=== PATIENT | female | born 1955 | race Caucasian/White ===

== ENCOUNTER 2018-07-19 20:00 | Inpatient (IN) | payer OTHER ==
[~2018-07-19] VITALS: Ht 167.6 cm; Wt 90.7 kg
[~2018-07-19 20:00] MED LIST: ACEASPCAF; ACET325; ATEN100; Atenolol100 MG PO; BUPR100ER; BUPR150ER; BUPR150ER PO; BUPR150T2; BUPR75; BUPR75 PO; Bactrim Ds Tab1 EACH PO; CLIN150 PO; CLON.1 PO; CYCL10 PO; Cleocin HCl150 MG PO; Cleocin HCl300 MG PO; DIAZ10 PO; DOCU100 PO; DULO30; FLUV50; FURO40 PO; GABA100; GABA400; HYDACE10A PO; HYDACE10B PO; HYDACE5 PO; HYDACE5325 PO; HYDCHL25 PO; IBUP200; IBUP800 PO; LISI5 PO; META800; META800 PO; METH10; METH10 PO; METO100ER; NAPR500 PO; NAPR550 PO; OMEP10ER; OMEP20ER; OMEP40CA12 PO; OXYACE10 PO; OXYACE5T PO; OXYC20ER; OXYC30 PO; OXYC30ER; OXYC5 PO; PRED20 PO; PROACE100 PO; PROC10 PO; RXHYDACE PO; RXNAPNA550 PO; RXOXYACE PO; SULTRIDS PO; TOBR.3OPSO OP; TRAM50 PO; TRIAOI IH
[2018-07-19] MEDS ORDERED: CARV25 PO (20:19)
[2018-07-19] MEDS ORDERED: OMEPRAZOLE MAGN20 MG PO (20:20)
[2018-07-19 21:21] LABS: Hematocrit 31.7 % (33.0-51.0); Hemoglobin 10.5 g/dL (11.5-16.0); Mean Corpuscular Volume 79 fL (80-100)
[2018-07-19 21:22] LABS: BASOPHILS PERCENT AUTO 1 % (0-2); EOSINOPHILS ABSOLUTE AUTO 0.14 K/mm3 (0.00-0.68); EOSINOPHILS PERCENT AUTO 2 % (0-6); IMMATURE GRAN PERCENT AUTO 1 % (0-1); LYMPHOCYTES ABSOLUTE AUTO 1.91 K/mm3 (0.84-5.20); LYMPHOCYTES PERCENT AUTO 24 % (21-46); MONOCYTES ABSOLUTE AUTO 0.58 K/mm3 (0.16-1.47); MONOCYTES PERCENT AUTO 7 % (4-13); Mean Corpuscular HGB 26.3 pg (26.0-34.0); Mean Corpuscular HGB Conc 33.1 g/dL (31.5-36.5); Mean Platelet Volume 9.1 fL (9.1-12.4); NEUTROPHILS ABSOLUTE AUTO 5.38 K/mm3 (1.96-9.15); NEUTROPHILS PERCENT AUTO 66 % (41-73); Platelet Count 465 K/mm3 (150-400); RDW Coefficient Variation 13.6 % (11.7-14.2)
[2018-07-19 21:23] LABS: BASOPHILS ABSOLUTE AUTO 0.04 K/mm3 (0.00-0.23); IMMATURE GRAN ABSOLUTE AUTO 0.05 K/mm3 (0.00-0.10)
[2018-07-19 21:48] LABS: Anion Gap 7 mmol/L (6-16); Blood Urea Nitrogen 8 mg/dL (8-24); CO2, Blood 24 mmol/L (21-32); Chloride, Blood 104 mmol/L (98-108); Glucose, Blood 97 mg/dL (70-99); Potassium, Blood 4.2 mmol/L (3.5-5.5); Sodium, Blood 135 mmol/L (136-145)
[2018-07-19 21:49] LABS: Alanine Aminotransfer (ALT/SGP 17 U/L (12-78); Albumin, Blood 2.8 g/dL (3.4-5.0); Albumin/Globulin Ratio 0.6 (0.8-1.8); Alk Phos 174 U/L (50-136); Aspartate Aminotrans (AST/SGOT 17 U/L (12-37); Bilirubin, Total 0.2 mg/dL (0.1-1.0); Bun/Creatinine Ratio 15.1 (12.0-20.0); Calcium, Blood 8.2 mg/dL (8.5-10.1); Creatinine, Blood 0.53 mg/dL (0.40-1.00); Globulin, Blood 4.8 g/dL (2.2-4.0); Glomerular Filtration Rate >60 (60-); Total Protein, Blood 7.6 g/dL (6.4-8.2)
--- NOTE | 2018-07-19 23:44 | NUR ---
transfer report from [facility] LEONG in ER on PT being admitted with cellulitis of rt ue. Blood culture x 2 and rt ue abscess cultured in ER. PT is IV heroin abuser and homeless. Has multiple medication allergies, PT recieved antibiotic azatam and has Vanco infusing per RN report. Await admission
[2018-07-19 23:49] LABS: Prothrombin Time Results 10.6 Sec (9.7-11.5)
--- NOTE | 2018-07-20 02:16 | NUR ---
PT HAS VERY LIMITED IV ACCESS. HAS 22 G RT SHOULDER AND RURAL ROUTE MAIL CARRIER STOPPED IV VANCO DUE TO INFLAMMATION WITH ADMIN. CALLED PHARMACY AND EXPLAINED MAXIPIME AND HEPARIN INFUSION NEEDED TO WAIT UNTIL VANCO FINISHED INFUSING WITH NS AT 50 ML HR TO DILUTE. CALLED Pam and Socorro Rn about establishing new iv access site due to heparin gtt and multiple iv antibiotics. started heparin gtt and gave 5000 units heparin bolus as rx for rt ue dvt.
--- NOTE | 2018-07-20 07:53 | NUR ---
0700 CHANGE OF SHIFT. PT YELLING OUT, CURSING, LAYING IN BED ALONE IN ROOM. SPOKE WITH PT ATTEMPTING TO DESCALATE PT. LISTENED TO PT'S CONCERNS AFTER REQUESTING THE PT MAKE EYE CONTACT AND STOP RAISING VOICE. PT REPORTED CONCERN THAT SHE WAS ON BLOOD THINNER PRIOR TO SURGERY. EDUCATED PT THAT HEPERIN WAS BEING USED TO TREAT DVT AND THAT IT IS ABLE TO GET OUT OF HER SYSTEM QUICKLY. PT REPORTED CHRONIC BACK PAIN, PT REPOSITIONED, PT REPORTED RELIEF. PT REPORTED DIAPHORESIS SECONDARY TO HEROIN WITHDRAWL, PT REPORTS NO USE SINCE YESTERDAY MORNING. BEDSIDE FAN PROVIDED. PT DENIES SOB, N/V. DRESSING TO R FA C/D/I. 0720 PT RESTING QUIETLY IN BED WITH EYES CLOSED. 0745 PT BEGAN SAYING "OH GOD REPEADITLY." DR. FUENTES CALLED AND NOTIFIED OF PT'S CONCERN FOR HEROIN WITHDRAWL. DR. FUENTES REPORTED THAT HE WOULD BE IN TO SEE THE PT THIS AM FOR ASSESSMENT. 0800 PT ASSISTED TO BATHROOM WITH CGA AND FWW WITHOUT ISSUE.
--- NOTE | 2018-07-20 08:15 | NUR ---
SPOKE WITH DR. FRANZ VIA PHONE AND GAVE HIM INFORMATION R/T CONSULT.
--- NOTE | 2018-07-20 08:35 | NUR ---
63 year old White female admitted for rt arm wound that started with injecting heroin at site. She uses iv heroin daily x 6 years. she self injected 07/19/18 am then usually would inject again in PM but she said she needed to get help for rt ue. PT doppler US positive for RT ue DVT. Deep wound culture done in ER. PT has very poor iv access and has vanco heparin gtt and several other antibiotics rx. did get 2nd iv access site after using emla cream. PT is labile weepy at times and she yells at staff and calls them names. She co needing to have le elevated due to le cramps. Pt refused am lab draw, repeatedly refused. Attempted to draw lab for new IV site with only about 3 ml withdrawn. PT is NPO for possible I & D rt fa wound. She is agitated and yelling at staff at shift change. PT is homeless, threatens AMA multiple times. Ortho consult called to office npo return call yet. Medicated with 25 to 50 mcg fent with mild helpful effect.
[2018-07-20 10:28] LABS: Hematocrit 32.2 % (33.0-51.0); Hemoglobin 10.3 g/dL (11.5-16.0); Mean Corpuscular HGB 25.8 pg (26.0-34.0); Mean Corpuscular Volume 81 fL (80-100); Mean Platelet Volume 8.4 fL (9.1-12.4); Platelet Count 490 K/mm3 (150-400); RDW Coefficient Variation 13.8 % (11.7-14.2); RDW Standard Deviation 40.4 fL (35.1-46.3); Red Blood Cell Count 3.99 M/mm3 (3.80-5.20); White Blood Cell Count 7.05 K/mm3 (4.00-11.30)
[2018-07-20 10:55] LABS: Alanine Aminotransfer (ALT/SGP 14 U/L (12-78); Albumin, Blood 2.8 g/dL (3.4-5.0); Albumin/Globulin Ratio 0.6 (0.8-1.8); Alk Phos 165 U/L (50-136); Anion Gap 6 mmol/L (6-16); Aspartate Aminotrans (AST/SGOT 16 U/L (12-37); Bilirubin, Total 0.4 mg/dL (0.1-1.0); Blood Urea Nitrogen 5 mg/dL (8-24); Bun/Creatinine Ratio 9.7 (12.0-20.0); CO2, Blood 27 mmol/L (21-32); Calcium, Blood 8.4 mg/dL (8.5-10.1); Chloride, Blood 107 mmol/L (98-108); Creatinine, Blood 0.52 mg/dL (0.40-1.00); Globulin, Blood 4.5 g/dL (2.2-4.0); Glomerular Filtration Rate >60 (60-); Glucose, Blood 109 mg/dL (70-99); Potassium, Blood 3.6 mmol/L (3.5-5.5); Sodium, Blood 140 mmol/L (136-145); Total Protein, Blood 7.3 g/dL (6.4-8.2)
--- NOTE | 2018-07-20 11:45 | NUR ---
PT WAS NOT ABLE TO TOLERATE CT SCAN SECONDARY WITHDRWAL SYMPTOMS AND CHRONIC BACK PAIN. PT MEDICATED WITH IV ATIVAN AND FENTNYL PRIOR TO SCAN. PT IS CALM IN BED RESTING/SLEEPING WHEN NOT STIMULATED. DR. FRANZ NOTIFIED PT WAS NOT ABLE TOLERATE CT.
--- NOTE | 2018-07-20 16:00 | NUR ---
PT TRANSFERRED TO ROOM 349 FROM ROOM 333 VIA BED. ASLEEP AT TIME OF TRANSFER. REPORT RECEIVED FROM JEET LLANES RN. WILL CONTINUE TO MONITOR.
--- NOTE | 2018-07-20 16:56 | NUR ---
1546 PT TRANSFERED TO SCU RM 349. REPORT GIVEN TO Donato DYSON RN AT TIME OF TRANSFER. DR. PALACIOS IN THIS AFTERNOON AND PT WAS NOT ABLE TO COME TO A DECISION ON WHETHER TO PURSUE SURGICAL INTERVENTION OR NOT. RECIEVED VERBAL ORDER FROM DR. PALACIOS FOR REGULAR DIET AND WOUND CARE. PT WAS INTERMITTENTLY SLEEPING AND WHEN AWAKE BECOMING VERY AGITATED, YELLING, AND EXPRESSING THAT SHE WANTED TO LEAVE THE HOSPITAL SECONDARY TO HEROIN WITHDRAWL. DECISION TO TRANSFER TO SCU WAS BASED ON THE ABOVE BEHAVIORS.
--- NOTE | 2018-07-20 17:56 | NUR ---
PT SAYING SHE WANTS TO LEAVE AND IS CALLING FRIENDS LOOKING FOR A RIDE HOME. DR FUENTES INFORMED, HE DECLINED A 2 MD HOLD AT THIS TIME.
--- NOTE | 2018-07-20 18:25 | NUR ---
PT PULLED ANTONIO IV, REFUSED NEW IV PLACEMENT, REFUSING CARE. YELLING AND CALLING OUT, SAYS SHE IS LEAVING, NO MATTER WHAT
--- NOTE | 2018-07-20 18:50 | NUR ---
PT WITH INTERVALS OF SLEEP AND CUSSING AND YELLING OUT, SAYING SHE IS LEAVING, CALLING FAMILY TO COME AND GET HER. SHE HAS PULLED IV'S AND REFUSES TO HAVE A NEW ONE PLACED. PHARMACY AND DR FUENTES INFORMED. DR FUENTES DELINES A 2 MD HOLD. WILL CONTINUE TO MONITOR AND REPORT TO ONCOMING RN
--- NOTE | 2018-07-20 20:10 | NUR ---
Was not able to do nursing assessment. Pt totally uncooperative with cares. Pt beligerant and will not let you assess her. Pt screaming and cussing constantly. Very difficult to make happy.
--- NOTE | 2018-07-20 22:21 | NUR ---
SECURITY CALLED TO COME ASSIST IN RM 349. PT AGITATED AND OUT OF CONTROL. YELLING AND SCREAMING THAT SHE NEEDED TO LEAVE TO GO GET HER CAR THAT HER GRANDSON HAS. UNABLE TO REASON WITH PT. EXPLAINED TO PT THE RISKS AND BENEFITS OF LEAVING AMA. PT STS ALL SHE WANTS IS TO GET HER CAR AND SHE IS COMING BACK. EXPLAINED TO HER THAT WHEN SHE LEAVES AMA THAT SHE CAN'T COME BACK AND EXPECT HER ROOM. SHE STS SHE KNOWS THAT SHE WILL HAVE TO COME BACK TO THE ER. PT DID SIGN THE AMA PAPER. LEFT WRIST IV REMOVED AND PRESSURE DRESSING APPLIED. PT DISLODGED DRESSING WHILE THRASHING HER HANDS AROUND CAUSING SOME BLEEDING. REINFORCED PRESSURE DRESSING WHILE PT WAS FREAKING OUT OVER WANTING TO GET TO HER CAR. ASSISTED PT WITH HER CLOTHES AND CLEANING HER UP. CHANGED THE DAVON BANDAGE TO HER RIGHT FOREARM. PT WAS ESCORTED OFF THE FLOOR BY SECURITY WITH ALL HER PERSONAL BELONGINGS. WAS ESCORTED OUT BY SECURITY.
--- NOTE | 2018-07-20 23:19 | NUR ---
Pt very beligerant and screaming out and cursing constantly with little patience. Pt does not believe anything you tell her. Pt concerned about her car. Pt given ativan and fentanyl which only lasted about an hour before she was all over the place and screaming again. Pt totally uncooperative with cares. Pt wants to leave! Pt given ama paperwork and we were finally able to get her to sign it. IV was dced. Pt was dressed. Pt taken downstairs by security. Per security she was picked up by family. Pt left AMA around 2129.
== END 2018-07-20 22:22 | disposition left against medical advice (07) | DRG 301 ==
LOC: ER 20:00 → MEDS 22:45
PROVIDERS: Emergency Medicine; Physician Assistant; ADMIT Internal Medicine
DX: I82.621 Acute embolism and thrombosis of deep veins of right upper extremity (principal); I11.0 Hypertensive heart disease with heart failure; I50.9 Heart failure, unspecified; F32.9 Major depressive disorder, single episode, unspecified; I89.0 Lymphedema, not elsewhere classified; L98.492 Non-pressure chronic ulcer of skin of other sites with fat layer exposed; L08.9 Local infection of the skin and subcutaneous tissue, unspecified; F11.10 Opioid abuse, uncomplicated; F17.210 Nicotine dependence, cigarettes, uncomplicated
CPT/HCPCS: 36415; 73110; 80053; 85025; 85027; 85610; 85730; 93971; 96365; 96367; 99285-25; J0692; J1644; J2060; J3010; J3370; J7030; J7050

== ENCOUNTER 2018-07-25 20:56 | Inpatient (IN) | payer OTHER ==
[~2018-07-25] VITALS: Ht 167.6 cm; Wt 85.0 kg
[~2018-07-25 20:56] MED LIST changes: +CARV25 PO; +OMEPRAZOLE MAGN20 MG PO
[2018-07-26 00:41] LABS: BASOPHILS ABSOLUTE AUTO 0.04 K/mm3 (0.00-0.23); BASOPHILS PERCENT AUTO 0 % (0-2); EOSINOPHILS ABSOLUTE AUTO 0.21 K/mm3 (0.00-0.68); EOSINOPHILS PERCENT AUTO 2 % (0-6); Hematocrit 36.1 % (33.0-51.0); Hemoglobin 11.5 g/dL (11.5-16.0); IMMATURE GRAN ABSOLUTE AUTO 0.03 K/mm3 (0.00-0.10); IMMATURE GRAN PERCENT AUTO 0 % (0-1); LYMPHOCYTES PERCENT AUTO 23 % (21-46); MONOCYTES ABSOLUTE AUTO 0.81 K/mm3 (0.16-1.47); MONOCYTES PERCENT AUTO 8 % (4-13); Mean Corpuscular HGB 26.3 pg (26.0-34.0); Mean Corpuscular HGB Conc 31.9 g/dL (31.5-36.5); Mean Corpuscular Volume 83 fL (80-100); Mean Platelet Volume 8.4 fL (9.1-12.4); NEUTROPHILS ABSOLUTE AUTO 6.89 K/mm3 (1.96-9.15); NEUTROPHILS PERCENT AUTO 66 % (41-73); Platelet Count 481 K/mm3 (150-400); RDW Standard Deviation 41.9 fL (35.1-46.3); Red Blood Cell Count 4.37 M/mm3 (3.80-5.20); White Blood Cell Count 10.38 K/mm3 (4.00-11.30)
[2018-07-26 01:00] LABS: Alanine Aminotransfer (ALT/SGP 18 U/L (12-78); Albumin, Blood 3.3 g/dL (3.4-5.0); Albumin/Globulin Ratio 0.7 (0.8-1.8); Alk Phos 137 U/L (50-136); Anion Gap 6 mmol/L (6-16); Aspartate Aminotrans (AST/SGOT 11 U/L (12-37); Bilirubin, Total 0.5 mg/dL (0.1-1.0); Blood Urea Nitrogen 6 mg/dL (8-24); CO2, Blood 33 mmol/L (21-32); Calcium, Blood 8.5 mg/dL (8.5-10.1); Chloride, Blood 99 mmol/L (98-108); Creatinine, Blood 0.55 mg/dL (0.40-1.00); Globulin, Blood 4.6 g/dL (2.2-4.0); Glomerular Filtration Rate >60 (60-); Glucose, Blood 91 mg/dL (70-99); Potassium, Blood 3.2 mmol/L (3.5-5.5); Sodium, Blood 138 mmol/L (136-145); Total Protein, Blood 7.9 g/dL (6.4-8.2)
--- NOTE | 2018-07-26 03:40 | NUR ---
pt arrived to unit via stretcher from ED, a/o x 4, cooperative, transfers herself to her bed, standby assist to the bathroom, vss
[2018-07-26] MEDS ORDERED: Excedrin Extra1 EACH PO (03:53)
--- NOTE | 2018-07-26 04:30 | NUR ---
while admitting pt, pt became tearful and appears anxious/frightened, states she is embarrased about her living situation and social issues, is concerned for her two dogs as she is living with "awful people" and she is worried her dogs will run away while she is in the hospital. pt is embarrased about her addiction problem, but states she feels better after telling this rn about her use while answering admit questions.
--- NOTE | 2018-07-26 07:26 | NUR ---
shift summary: pt remained a/o x 4, pleasant/cooperative, tearful at times r/t her social situation and addiction issues, disease process, embarrassment. pt remained NPO, urine output >300 ml, admitted wnl, orders received, orthopedic consult called in
[2018-07-26 09:55] LABS: Hematocrit 32.8 % (33.0-51.0); Hemoglobin 10.7 g/dL (11.5-16.0); Mean Corpuscular HGB 26.4 pg (26.0-34.0); Mean Corpuscular HGB Conc 32.6 g/dL (31.5-36.5); Mean Corpuscular Volume 81 fL (80-100); Mean Platelet Volume 9.2 fL (9.1-12.4); Platelet Count 413 K/mm3 (150-400); RDW Coefficient Variation 14.1 % (11.7-14.2); RDW Standard Deviation 41.4 fL (35.1-46.3); Red Blood Cell Count 4.06 M/mm3 (3.80-5.20); White Blood Cell Count 8.83 K/mm3 (4.00-11.30)
[2018-07-26 10:03] LABS: Alanine Aminotransfer (ALT/SGP 15 U/L (12-78); Albumin, Blood 2.7 g/dL (3.4-5.0); Albumin/Globulin Ratio 0.6 (0.8-1.8); Alk Phos 121 U/L (50-136); Anion Gap 8 mmol/L (6-16); Aspartate Aminotrans (AST/SGOT 14 U/L (12-37); Bilirubin, Total 0.4 mg/dL (0.1-1.0); Blood Urea Nitrogen 5 mg/dL (8-24); Bun/Creatinine Ratio 11.8 (12.0-20.0); CO2, Blood 25 mmol/L (21-32); Calcium, Blood 7.6 mg/dL (8.5-10.1); Chloride, Blood 101 mmol/L (98-108); Creatinine, Blood 0.43 mg/dL (0.40-1.00); Globulin, Blood 4.3 g/dL (2.2-4.0); Glomerular Filtration Rate >60 (60-); Glucose, Blood 143 mg/dL (70-99); Potassium, Blood 3.5 mmol/L (3.5-5.5); Sodium, Blood 134 mmol/L (136-145)
--- NOTE | 2018-07-26 10:20 | NUR ---
Patient is lying in bed and alert. Patient immediately shares a long story of heroin abuse, homelessness, shame, sickness and panhandling. Patient expresses a desire to get clean and to not live on the streets anymore. I listened empathically, reinforced helpful attitudes and practices, encouraged self-care, provided inspirational materials dealing that deal with shame, provided emotional support and provided prayer. Patient responded well and showed signs of restored gilberto. Patient thanked me for the visit.
--- NOTE | 2018-07-26 16:46 | NUR ---
SHIFT SUMMARY NO ACUTE CHANGES TODAY. VSS. PT TAKING 2MG ORAL DILAUDID FOR PAIN. IV IS SL EXCEPT FOR ABX. ORTHO CONSULTED ON PT THIS MORNING AND ABSCESS IS NONSURGICAL AT THIS TIME PER DR. RUBIN. PLAN IS TO HAVE PT SET UP WITH WOUND CLINIC AT DISCHARGE. DAVON WRAP TO R HAND IS CDI AT THIS TIME. PT INDEP IN ROOM. [facility] REPRESENATIVE IN TO SEE PT TO SET UP PT WITH OUTPATIENT SERVICES. CALL LIGHT WITHIN REACH.
--- NOTE | 2018-07-26 18:29 | NUR ---
PT WANTING TO LEAVE AMA. PT EDUCATED ON THE RISKS OF LEAVING. PT VERBALIZED AN UNDERSTANDING. AMA FORM PREPARED. PT WAITING TO SIGN FORM UNTIL SHE CAN GET A RIDE HOME. WILL REPORT TO NOC RN ON SITUATION.
--- NOTE | 2018-07-26 20:06 | NUR ---
PT DAUGHTER TAKING PT OUT TO SMOKE VIA WC AT THIS TIME. PT EDUCATED ON DELAYED HEALING D/T TOBACCO USE; PT STS UNDERSTANDING.
--- NOTE | 2018-07-27 06:05 | NUR ---
SHIFT SUMMARY PT A&O X4 T/O SHIFT. DRESSING TO R DORSAL HAND; RUE ELEVATED AT PT TOLERATED. PAIN MANAGED PER EMAR. PT CALLS OUT; PT ENCOURAGED TO TAKE DEEP BREATHES AND RELAX. RA; VSS. UP TO TOILET. INDEPENDENT IN ROOM. CALL LIGHT IN REACH.
--- NOTE | 2018-07-27 10:55 | NUR ---
Patient is frustrated and threatening to leave the hospital because of her heroin withdraw symptoms and feeling as if she is not getting enough pain management. I listened to patient, normalized patient experience, encouraged her to communicate in kind ways and provided prayer. Patient responded well and showed signs of being de-escalated at least for the moment. Patient thanked me for the prayer.
--- NOTE | 2018-07-27 11:21 | NUR ---
SPOKE WITH JUNIOR NET DEVELOPER REGARDING WOUND CLINIC AND DISCHARGE PLANNING. SARWAT LEONG VERBALIZED THAT SHE WOULD SPEAK TO DR. ANAND AT HOSPITALIST MEETING SO HE CAN PLACE APPROPRIATE ORDERS.
--- NOTE | 2018-07-27 13:20 | NUR ---
ASSUMED CARE OF PATIENT AT 1235. CALLED TO ROOM AT THIS TIME FOR PAIN MED. SPOKE WITH PATIENT RE: AWAITING FURTHER INSTRUCTIONS FROM ORTHO.
[2018-07-27] MEDS ORDERED: Doxycycline Hyc20 MG PO (17:32)
[2018-07-27] MEDS ORDERED: XARELTO20 MG PO (17:34)
--- NOTE | 2018-07-27 18:56 | NUR ---
PATIENT D/C'D HOME AT THIS TIME PER HER WISHES AND DR ANAND'S ORDERS. PATIENT AND GRANDSON STATE UNDERSTANDING OF MEDS, F/U APPT, APPT AT WOUND CARE CLINIC ON TUESDAY AT 0730. PATIENT STATES SHE INTENDS TO GO TO [facility] TOMORROW FOR INTAKE INTERVIEW. RX FAXED TO [facility].
== END 2018-07-27 18:55 | disposition home or self-care (01) | DRG 593 ==
LOC: ER 20:56 → SURS 07-26 03:22
PROVIDERS: Physician Assistant; ADMIT Internal Medicine
DX: L98.499 Non-pressure chronic ulcer of skin of other sites with unspecified severity (principal); I82.621 Acute embolism and thrombosis of deep veins of right upper extremity; F11.10 Opioid abuse, uncomplicated; I10 Essential (primary) hypertension; Z59.0 Homelessness; Z76.5 Malingerer [conscious simulation]; F32.9 Major depressive disorder, single episode, unspecified; F17.210 Nicotine dependence, cigarettes, uncomplicated
CPT/HCPCS: 36415; 80053; 85025; 85027; 85730; 96365; 96367; 99284-25; J0692; J0713; J3370

== ENCOUNTER 2018-12-07 02:04 | Inpatient (IN) | payer OTHER ==
[~2018-12-07] VITALS: Ht 165.1 cm; Wt 86.1 kg
[~2018-12-07 02:04] MED LIST changes: +Doxycycline Hyc20 MG PO; +Excedrin Extra1 EACH PO; +XARELTO20 MG PO
[2018-12-07 04:58] LABS: BASOPHILS ABSOLUTE AUTO 0.02 K/mm3 (0.00-0.23); BASOPHILS PERCENT AUTO 0 % (0-2); EOSINOPHILS ABSOLUTE AUTO 0.16 K/mm3 (0.00-0.68); EOSINOPHILS PERCENT AUTO 2 % (0-6); Hematocrit 27.4 % (33.0-51.0); Hemoglobin 8.4 g/dL (11.5-16.0); IMMATURE GRAN ABSOLUTE AUTO 0.06 K/mm3 (0.00-0.10); IMMATURE GRAN PERCENT AUTO 1 % (0-1); LYMPHOCYTES ABSOLUTE AUTO 1.48 K/mm3 (0.84-5.20); LYMPHOCYTES PERCENT AUTO 14 % (21-46); MONOCYTES ABSOLUTE AUTO 0.84 K/mm3 (0.16-1.47); MONOCYTES PERCENT AUTO 8 % (4-13); Mean Corpuscular HGB 22.3 pg (26.0-34.0); Mean Corpuscular HGB Conc 30.7 g/dL (31.5-36.5); Mean Corpuscular Volume 73 fL (80-100); Mean Platelet Volume 8.6 fL (9.1-12.4); NEUTROPHILS ABSOLUTE AUTO 7.96 K/mm3 (1.96-9.15); NEUTROPHILS PERCENT AUTO 76 % (41-73); Platelet Count 586 K/mm3 (150-400); RDW Coefficient Variation 16.2 % (11.7-14.2); RDW Standard Deviation 42.4 fL (35.1-46.3); Red Blood Cell Count 3.77 M/mm3 (3.80-5.20); White Blood Cell Count 10.52 K/mm3 (4.00-11.30)
[2018-12-07 05:17] LABS: Alanine Aminotransfer (ALT/SGP 24 U/L (12-78); Albumin, Blood 2.9 g/dL (3.4-5.0); Albumin/Globulin Ratio 0.6 (0.8-1.8); Alk Phos 231 U/L (50-136); Anion Gap 8 mmol/L (6-16); Aspartate Aminotrans (AST/SGOT 13 U/L (12-37); Bilirubin, Total 0.6 mg/dL (0.1-1.0); Blood Urea Nitrogen 9 mg/dL (8-24); Bun/Creatinine Ratio 16.5 (12.0-20.0); CO2, Blood 27 mmol/L (21-32); Calcium, Blood 8.3 mg/dL (8.5-10.1); Chloride, Blood 99 mmol/L (98-108); Creatinine, Blood 0.55 mg/dL (0.40-1.00); Globulin, Blood 5.1 g/dL (2.2-4.0); Glomerular Filtration Rate >60 (60-); Glucose, Blood 111 mg/dL (70-99); Potassium, Blood 2.9 mmol/L (3.5-5.5); Sodium, Blood 134 mmol/L (136-145)
--- NOTE | 2018-12-07 07:46 | NUR ---
ARRIVES FROM E.Mohit PLACED IN АННА. LAB HERE TO DRAW.IV FLUSHED AND SALINE LOCKED.
[2018-12-07 08:25] LABS: International Normalized Ratio 1.02; Prothrombin Time Results 10.8 Sec (9.7-11.5)
--- NOTE | 2018-12-07 11:39 | NUR ---
CALLED ABOUT ; SOMETHING FOR WITHDRAWAL (SHOT UP TWICE YESTERDAY W/HEROIN), POTASSIUM WAS 2.9 IN E.R., NICOTINE PATCH (SMOKES ONE PACK A DAY) AND BOWEL PROTOCOL.
--- NOTE | 2018-12-07 13:05 | NUR ---
PAIN MEDS ORDEREDBY NIGHT MD CANCELLED BY? TALKED TO AND OK TO REORDER FENTANYL 25-50 MCG Q 4 HRS PRN
--- NOTE | 2018-12-07 19:03 | NUR ---
ALERT. ORIENTED. NO IV ASSESS AT THIS TIME WITH AWARE. REQUESTING MEDS FOR "WITHDRAWAL LIKE I HAD EARLIER." ADVISED WILL TALK TO MD AND GET P.O. MED. PER DR. RAMESH 1-2 NORCO PRN Q 4 HOURS. HAS TALKED FREQUENTLY ABOUT "JUST LEAVING." UPSET, ANGRY OFTEN. WANTS RELATIVES TO COME IN, BUT "THEY WON'T IF NURSES ARE IN ROOM." DOES NOT WANT TO ELEVATE RT ARM EVEN AFTER ADVISED HER IT WOULD BE BETTER FOR HER. DOES "NOT LIKE FOOD HERE." HAD CHOKING EPISODE AFTER SWOLLOWING A PIECE OF MEAT WHOLE WITHOUT CUTTING IT UP. COUGHED OUT MEAT AND STS "I WAS STARVING." REPORT TO NIGHT RN.
[2018-12-07 19:10] LABS: Hematocrit 25.9 % (33.0-51.0); Hemoglobin 7.9 g/dL (11.5-16.0); Mean Corpuscular HGB 22.2 pg (26.0-34.0); Mean Corpuscular HGB Conc 30.5 g/dL (31.5-36.5); Mean Corpuscular Volume 73 fL (80-100); Mean Platelet Volume 8.4 fL (9.1-12.4); Platelet Count 601 K/mm3 (150-400); RDW Coefficient Variation 16.4 % (11.7-14.2); RDW Standard Deviation 43.2 fL (35.1-46.3); Red Blood Cell Count 3.56 M/mm3 (3.80-5.20); White Blood Cell Count 7.69 K/mm3 (4.00-11.30)
--- NOTE | 2018-12-07 19:24 | NUR ---
RECEIVED CALL FROM CT ABOUT A WITH CONTRAST CT. PATIENT DOES NOT HAVE IV ACCESS AT THIS TIME AND UNABLE TO OBTAIN ACESS AT THIS TIME. CT STATED THEY WOULD DO THE CT WITHOUT CONTRAST. WILL SPEAK TO CHIEF NURSE ANESTHETIST ABOUT TRYING TO OBTAIN IV ACCESS WITH THE ULTRASOUND.
[2018-12-07 19:28] LABS: Alanine Aminotransfer (ALT/SGP 21 U/L (12-78); Albumin, Blood 2.5 g/dL (3.4-5.0); Albumin/Globulin Ratio 0.5 (0.8-1.8); Alk Phos 245 U/L (50-136); Anion Gap 6 mmol/L (6-16); Aspartate Aminotrans (AST/SGOT 20 U/L (12-37); Bilirubin, Total 0.6 mg/dL (0.1-1.0); Blood Urea Nitrogen 6 mg/dL (8-24); Bun/Creatinine Ratio 9.9 (12.0-20.0); CO2, Blood 27 mmol/L (21-32); Calcium, Blood 8.2 mg/dL (8.5-10.1); Chloride, Blood 104 mmol/L (98-108); Creatinine, Blood 0.61 mg/dL (0.40-1.00); Globulin, Blood 4.6 g/dL (2.2-4.0); Glomerular Filtration Rate >60 (60-); Glucose, Blood 174 mg/dL (70-99); Potassium, Blood 3.2 mmol/L (3.5-5.5); Sodium, Blood 137 mmol/L (136-145); Total Protein, Blood 7.1 g/dL (6.4-8.2)
--- NOTE | 2018-12-07 22:11 | NUR ---
spoke to automotive exhaust emissions technician physician about patient not having iv access. PHYSICIAN STATED TO KEEP TRYING TO GAIN ACCESS AND IF UNABLE TO CALL BACK TO DISCUSS OTHER OPTIONS. SPOKE TO FINISHER MACHINE ABOUT ATTEMPTING TO GET IV ACCESS. FINISHER MACHINE CALLED RN CIARA TO COME WITH ULTRASOUND TO TRY TO GET IV ACCESS. INFORMED PATIENT OF PLAN AND CIARA IS NOW IN THE ROOM WITH THE ULTRASOUND. PATIENT UPSET ABOUT NOT HAVING SOMETHING "STRONGER" THAN NORCO AND STATED THEY WERE LIKE "ADVIL" TO HER. PATIENT REQUESTED NORCO GIVEN AND STATED SHE WOULD TALK TO THE DOCTOR TOMORROW.
--- NOTE | 2018-12-07 23:26 | NUR ---
POWERGLIDE PLACE IN PATIENTS UPPER LEFT ARM. STARTED VANCO IV AND INFORMED PHARMACY OF LATE START. PATIENT TOLERATED PROCEDURE WELL.
--- NOTE | 2018-12-08 05:47 | NUR ---
SHIFT SUMMARY AFTER IV ACCESS WAS OBTAINED PATIENT WAS ABLE TO SLEEP THROUGHOUT THE REST OF THE SHIFT. EXPLAINED TO PATIENT THAT SHE WOULD BE NPO AT BREAKFAST THIS MORNING TO WHICH THE PATIENT VERBALIZED UNDERSTANDING. RIGHT ARM DRESSING C/D/I. LEFT POWERGLIDE PATENT WITH GOOD BLOOD RETURN. PATIENT HAS 3-4+ PITTING EDEMA IN BLE. UP SBA WITH FWW TO BATHROOM. NO ISSUES WITH PATIENT THROUGHOUT BOBBIN DUMPER. WILL CONTINUE TO MONITOR AND REPORT TO ONCOMING RN.
[2018-12-08 06:29] LABS: BASOPHILS ABSOLUTE AUTO 0.02 K/mm3 (0.00-0.23); BASOPHILS PERCENT AUTO 0 % (0-2); EOSINOPHILS ABSOLUTE AUTO 0.16 K/mm3 (0.00-0.68); EOSINOPHILS PERCENT AUTO 2 % (0-6); Hematocrit 22.8 % (33.0-51.0); IMMATURE GRAN ABSOLUTE AUTO 0.03 K/mm3 (0.00-0.10); IMMATURE GRAN PERCENT AUTO 0 % (0-1); LYMPHOCYTES PERCENT AUTO 28 % (21-46); MONOCYTES ABSOLUTE AUTO 0.76 K/mm3 (0.16-1.47); MONOCYTES PERCENT AUTO 11 % (4-13); Mean Corpuscular HGB 22.4 pg (26.0-34.0); Mean Corpuscular HGB Conc 30.7 g/dL (31.5-36.5); Mean Corpuscular Volume 73 fL (80-100); Mean Platelet Volume 8.5 fL (9.1-12.4); NEUTROPHILS ABSOLUTE AUTO 3.81 K/mm3 (1.96-9.15); NEUTROPHILS PERCENT AUTO 57 % (41-73); Platelet Count 521 K/mm3 (150-400); RDW Coefficient Variation 16.6 % (11.7-14.2); RDW Standard Deviation 43.7 fL (35.1-46.3); Red Blood Cell Count 3.12 M/mm3 (3.80-5.20); White Blood Cell Count 6.68 K/mm3 (4.00-11.30)
[2018-12-08 06:36] LABS: International Normalized Ratio 1.83; Prothrombin Time Results 18.4 Sec (9.7-11.5)
[2018-12-08 06:42] LABS: Anion Gap 4 mmol/L (6-16); Blood Urea Nitrogen 8 mg/dL (8-24); Bun/Creatinine Ratio 14.8 (12.0-20.0); CO2, Blood 30 mmol/L (21-32); Calcium, Blood 7.7 mg/dL (8.5-10.1); Chloride, Blood 105 mmol/L (98-108); Creatinine, Blood 0.54 mg/dL (0.40-1.00); Glomerular Filtration Rate >60 (60-); Glucose, Blood 92 mg/dL (70-99); Potassium, Blood 3.4 mmol/L (3.5-5.5); Sodium, Blood 139 mmol/L (136-145)
[2018-12-08 10:54] LABS: Percent Saturation 3.4 % (15.0-50.0)
[2018-12-08 11:17] LABS: Vancomycin, Trough 6.9 ug/mL (5.0-10.0)
--- NOTE | 2018-12-08 12:17 | NUR ---
INTO SDS VIA [employer]. PT A&OX3-APPEARS ANXIOUS.PT REPORTS 10/10 LEFT ARM PAIN. HISTORY AND ALLERGIES REVIEWED. PT STATES THAT SHE DRANK A FEW SIPS OF LYNN MIST BETWEEN 8 AND 10 AM TODAY. WILL UPDATE ANETHESIOLOGIST. LUNGS CLEAR-NO SOB NOTED. SATS>90% ON RA. PT RIGHT UPPER EXTREMITY AND BOTH LOWER EXTREMITIES VERY EDEMATOUS. DAVON WRAP INTACT TO RIGHT HAND/ARM-NO PREP PT REPORTS PAIN TO RIGHT UPPER EXTREMITY.
--- NOTE | 2018-12-08 17:29 | NUR ---
TALKED TO DR. WILKS ABOUT BLD PRESS. 193/85 AND GIVEN APRESOLINE. WENT DOWN TO 168/79, THEN BACK UP TO 196/95 AND GIVEN PAIN MEDS. NOW 178/. STILL GIVING ONE UNIT OF BLOOD. ORDER FOR APRESOLINE 10 MG IV NOW AND STOP ANY IV FLUIDS.
--- NOTE | 2018-12-08 19:11 | NUR ---
ALERT. ORIENTED. UPSET, ANGRY, IRRITABLE. ASSISTED TO BSC MULTIPLE TIMES WITH PATIENT STATING PAIN MEDS DON'T HELP. WHEN ASSISTED BACK TO BED AND MADE COMFORTABLE PATIENT GOES BACK TO SNORING. STS FOOD IS HORRIBLE, BUT EATS IT ALL VERY QUICKLY. REVIEW MULTIPLE TIMES ABOUT WOUND VAC. IV PATENT. PHARMACY AWARE IV ANTIBIOTIC WILL GO IN LATE DUE TO BLOOD TRANSFUSION. REPORT TO NIGHT RN'S.
--- NOTE | 2018-12-09 01:59 | NUR ---
SMELL OF CIGARETTE SMOKE COMING FROM PT'S ROOM. THIS NURSE ENTERED PT'S ROOM. PT ASLEEP IN BED. PT'S SITTING AT SIDE OF COT IN ROOM. ASKED PT'S IF HE HAD BEEN SMOKING IN THE ROOM. PT'S ADMITTED TO SMOKING IN THE ROOM, STATING "I DON'T KNOW WHAT I WAS THINKING". PT'S AGREED TO NO LONGER SMOKE IN THE ROOM AND WAS TOLD THAT HE WOULD BE ASKED TO LEAVE IF HE COULD NOT FOLLOW THE HOSPITAL RULES. PT GOT UP AND STATED THAT HE WAS GOING TO GO OUTSIDE TO SMOKE.
--- NOTE | 2018-12-09 05:21 | NUR ---
SHIFT SUMMARY: PT alert and oriented. Labile mood. Mood improved with pain med administration and arribal of spouse. Spouse slept in room. Pt. Slept intermittently after PRN pain meds administered. Wound vac changed due to large blood clot on foam occluding suction. Currently suctioning without issues. Moderate amounts of sanguinous drainage from right FA wound. Right hand continues with large amount of swelling. Reports numbness in R FA. Fingers warm and pink. BP 196/96 at beginning of shift- patient yelling and cussing angily at staff at time of check. BP improved upon recheck. No acute changes in condition. Call button within reach. Communicating needs.
--- NOTE | 2018-12-09 06:07 | NUR ---
PT'S MOOD VERY LABILE. FRIENDLY ONE MOMENT AND THEN ANGRY AND SCREAMING OR CRYING THE NEXT. WHEN DRAWING MORNING LABS FROM FROM PT'S POWERGLIDE THIS AM PT WAS VERY UPSET, STATING THAT SHE WOULD LEAVE AMA AND REPORTING THAT SHE HAS DONE IT MULTIPLE TIMES BEFORE. PT THEN STATED THAT SHE "WANTS TO BE " AND "DOESN'T WANT TO BE ALIVE IF SHE DOESN'T HAVE A HOME" AND "THAT'S THE REASON I DIDN'T COME TO THE HOSPITAL FOR SO LONG, I WAS TRYING TO KILL MYSELF". SPOKE WITH PT ABOUT RESOURCES IN THE AREA AND PT ONLY GOT ANGRY OR LAUGHED AT ANY OPTIONS. SPOKE WITH DRY END TESTER ABOUT PT'S STATEMENTS. QUESTIONED PT ABOUT WHETHER SHE ACTUALLY HAD ANY PLANS TO HARM HERSELF AND SHE YELLED "NO".
[2018-12-09 06:23] LABS: BASOPHILS ABSOLUTE AUTO 0.01 K/mm3 (0.00-0.23); BASOPHILS PERCENT AUTO 0 % (0-2); EOSINOPHILS PERCENT AUTO 0 % (0-6); Hematocrit 25.4 % (33.0-51.0); Hemoglobin 7.9 g/dL (11.5-16.0); IMMATURE GRAN ABSOLUTE AUTO 0.04 K/mm3 (0.00-0.10); IMMATURE GRAN PERCENT AUTO 1 % (0-1); LYMPHOCYTES ABSOLUTE AUTO 1.03 K/mm3 (0.84-5.20); LYMPHOCYTES PERCENT AUTO 14 % (21-46); MONOCYTES ABSOLUTE AUTO 0.54 K/mm3 (0.16-1.47); MONOCYTES PERCENT AUTO 7 % (4-13); Mean Corpuscular HGB 22.9 pg (26.0-34.0); Mean Corpuscular HGB Conc 31.1 g/dL (31.5-36.5); Mean Corpuscular Volume 74 fL (80-100); Mean Platelet Volume 8.5 fL (9.1-12.4); NEUTROPHILS ABSOLUTE AUTO 5.79 K/mm3 (1.96-9.15); NEUTROPHILS PERCENT AUTO 78 % (41-73); Platelet Count 587 K/mm3 (150-400); RDW Coefficient Variation 16.4 % (11.7-14.2); RDW Standard Deviation 44.4 fL (35.1-46.3); Red Blood Cell Count 3.45 M/mm3 (3.80-5.20); White Blood Cell Count 7.41 K/mm3 (4.00-11.30)
[2018-12-09 06:44] LABS: Alanine Aminotransfer (ALT/SGP 19 U/L (12-78); Albumin, Blood 2.3 g/dL (3.4-5.0); Albumin/Globulin Ratio 0.5 (0.8-1.8); Alk Phos 239 U/L (50-136); Anion Gap 5 mmol/L (6-16); Aspartate Aminotrans (AST/SGOT 14 U/L (12-37); Bilirubin, Total 0.4 mg/dL (0.1-1.0); Blood Urea Nitrogen 9 mg/dL (8-24); CO2, Blood 28 mmol/L (21-32); Calcium, Blood 8.1 mg/dL (8.5-10.1); Chloride, Blood 103 mmol/L (98-108); Creatinine, Blood 0.47 mg/dL (0.40-1.00); Globulin, Blood 4.6 g/dL (2.2-4.0); Glomerular Filtration Rate >60 (60-); Glucose, Blood 123 mg/dL (70-99); Phosphorus, Blood 3.3 mg/dL (2.5-4.9); Potassium, Blood 3.7 mmol/L (3.5-5.5); Sodium, Blood 136 mmol/L (136-145); Total Protein, Blood 6.9 g/dL (6.4-8.2)
--- NOTE | 2018-12-09 07:23 | NUR ---
YELLING AND THRASHING AROUND IN BED, SCREAMING AT STAFF. STATES "DO I LOOK RELAXED? I AM FREAKING OUT RIGHT NOW, I'M A DRUG ADDICT AND YOU WON'T GIVE ME ANYTHING FOR PAIN OR TO RELAX ME". REPORTED TO DR. JONES. NEW ORDERS RECEIVED.
--- NOTE | 2018-12-09 10:00 | NUR ---
PT YELLING AND CURSING AT STAFF. PT'S SPOUSE LEFT ROOM STATES "I'M NOT STAYING IN HERE LISTENING TO YOU YELL ANYMORE". REFUSED MEDICATIONS. DR. KAREN DIAZ. MARKET CONSULTANT NOTIFIED AND SPOKE WITH PATIENT.
--- NOTE | 2018-12-09 10:30 | NUR ---
UNABLE TO RECHECK BP DUE TO PT REFUSING CARE.
--- NOTE | 2018-12-09 13:10 | NUR ---
PULLING AT WOUND VAC STATES "WHY DO I NEED THIS, I'M GOING TO PULL IT OUT"; POWERGLIDE NOT PATENT. VANCOMYCIN LATE. CHARGE NURSE NOTIFIED.
--- NOTE | 2018-12-09 16:55 | NUR ---
SHIFT SUMMARY YELLING OBSCENITIES AND VERBALLY AGGRESSIVE TO STAFF. REFUSED PO MEDICATIONS. POWERGLIDE POSITIONAL BUT MEDS INFUSING AT THIS TIME. BSC SBA. DECREASED PO INTAKE TODAY. THREATENING TO LEAVE AMA. OX4.
--- NOTE | 2018-12-09 19:28 | NUR ---
PT REFUSING VITALS AT TIME. WILL ATTEMPT AGAIN IN A LITTLE WHILE.
--- NOTE | 2018-12-09 21:32 | NUR ---
PT UP TO RESTROOM, REPORTED A BOWEL MOVEMENT THAT SHE FLUSHED BEFORE IT COULD BE VISUALIZED. PT REPORTED IT TO BE MEDIUM SIZE WITH "SOME SOLID AND SOME LOOSE" STOOL. BOWEL CARE HELD PER PT'S REQUEST. PT ALLOWED VITAL SIGNS AT THIS TIME.
--- NOTE | 2018-12-10 04:21 | NUR ---
SHIFT SUMMARY: A/O. Skin warm and dry. Has slept most of the night, intermittently waking up to communicate needs and has quickly fallen back to sleep. Wound vac seal intact on R FA. 125cc sanguinous drainage in wound vac drainage collection container. Moods continue to be labile wile awake. Call light within reach. No acute changes during the night.
[2018-12-10 05:37] LABS: BASOPHILS ABSOLUTE AUTO 0.04 K/mm3 (0.00-0.23); BASOPHILS PERCENT AUTO 0 % (0-2); EOSINOPHILS PERCENT AUTO 1 % (0-6); Hematocrit 23.3 % (33.0-51.0); Hemoglobin 7.3 g/dL (11.5-16.0); IMMATURE GRAN ABSOLUTE AUTO 0.07 K/mm3 (0.00-0.10); IMMATURE GRAN PERCENT AUTO 1 % (0-1); LYMPHOCYTES ABSOLUTE AUTO 1.98 K/mm3 (0.84-5.20); LYMPHOCYTES PERCENT AUTO 20 % (21-46); MONOCYTES ABSOLUTE AUTO 0.62 K/mm3 (0.16-1.47); MONOCYTES PERCENT AUTO 6 % (4-13); Mean Corpuscular HGB 23.1 pg (26.0-34.0); Mean Corpuscular HGB Conc 31.3 g/dL (31.5-36.5); Mean Corpuscular Volume 74 fL (80-100); Mean Platelet Volume 8.6 fL (9.1-12.4); NEUTROPHILS ABSOLUTE AUTO 7.09 K/mm3 (1.96-9.15); NEUTROPHILS PERCENT AUTO 72 % (41-73); Platelet Count 609 K/mm3 (150-400); RDW Coefficient Variation 16.8 % (11.7-14.2); RDW Standard Deviation 45.1 fL (35.1-46.3); Red Blood Cell Count 3.16 M/mm3 (3.80-5.20)
[2018-12-10 06:01] LABS: Albumin, Blood 2.3 g/dL (3.4-5.0); Anion Gap 7 mmol/L (6-16); Blood Urea Nitrogen 6 mg/dL (8-24); Bun/Creatinine Ratio 12.2 (12.0-20.0); CO2, Blood 28 mmol/L (21-32); Calcium, Blood 7.9 mg/dL (8.5-10.1); Chloride, Blood 105 mmol/L (98-108); Creatinine, Blood 0.49 mg/dL (0.40-1.00); Glomerular Filtration Rate >60 (60-); Glucose, Blood 81 mg/dL (70-99); Phosphorus, Blood 3.7 mg/dL (2.5-4.9); Potassium, Blood 3.3 mmol/L (3.5-5.5); Sodium, Blood 140 mmol/L (136-145)
[2018-12-10 12:48] LABS: Vancomycin, Trough 9.2 ug/mL (5.0-10.0)
--- NOTE | 2018-12-10 15:18 | NUR ---
summary PT IS A/O X4, SHE IS @ X'S CALM, PLEASANT HOWEVER @ X'S BECOMES IRRITABLE, ANGRY, VERBALLY ABUSIVE ESPECIALLY w TREATMENTS. LABILE AFFECT. SHE HAS THREATENED TO LEAVE AMA WHEN SHE DOES NOT GET HER WAY. STATE MULT SOCIAL ISSUES INCLUDING HOMELESSNESS, DRUG USE & DEPRESSION. STATE NO PLAN FOR SELF HARM WHILE IN HOSP. S/P R ARM ULCER I&D, WOUND VAC PATENT, DRSG INTACT. SHE STATE FATIGUE, STATE NOT FEELING WELL/NO APPETITE. STATE PAIN R ARM. HAVE GIVEN FENTANYL & ZOFRAN FOR RELIEF/CONTROL. IV ANTIBX CONTINUE. H&H LOW @ 7.3/23.3, DR JONES ORDER IV FE+. K+ LOW @ 3.3, ORAL SUPPLEMENT ORDERED. VSS.
--- NOTE | 2018-12-11 04:08 | NUR ---
SHIFT SUMMARY: A/O. Remained in bed all night except to use BSC. Has mostly slept. Mood has been good overall through the night with exception of a couple of crying episodes when discussing her situation. She has not requested fentanyl this shift, instead opting for xanax. Seems to have been effective. No reports of N/V tonight. States appetite improved. No stool produced for FOST during shift. Wound vac drsg CDI. Small amount of sanguinous drainage output in wound vac collection chamber. Swelling in RFA and hand continues +4, elevated on pillow- appears to be somewhat improved compared to 12/10. Pt states numbness in R hand improving as well. No acute changes. Call light with in reach.
[2018-12-11 06:47] LABS: BASOPHILS ABSOLUTE AUTO 0.07 K/mm3 (0.00-0.23); BASOPHILS PERCENT AUTO 1 % (0-2); EOSINOPHILS ABSOLUTE AUTO 0.26 K/mm3 (0.00-0.68); EOSINOPHILS PERCENT AUTO 3 % (0-6); Hematocrit 28.8 % (33.0-51.0); IMMATURE GRAN ABSOLUTE AUTO 0.23 K/mm3 (0.00-0.10); IMMATURE GRAN PERCENT AUTO 3 % (0-1); LYMPHOCYTES ABSOLUTE AUTO 1.88 K/mm3 (0.84-5.20); LYMPHOCYTES PERCENT AUTO 21 % (21-46); MONOCYTES ABSOLUTE AUTO 0.77 K/mm3 (0.16-1.47); MONOCYTES PERCENT AUTO 9 % (4-13); Mean Corpuscular HGB 22.9 pg (26.0-34.0); Mean Corpuscular HGB Conc 31.3 g/dL (31.5-36.5); Mean Corpuscular Volume 73 fL (80-100); Mean Platelet Volume 8.6 fL (9.1-12.4); NEUTROPHILS PERCENT AUTO 64 % (41-73); Platelet Count 703 K/mm3 (150-400); RDW Coefficient Variation 17.1 % (11.7-14.2); RDW Standard Deviation 44.6 fL (35.1-46.3); Red Blood Cell Count 3.93 M/mm3 (3.80-5.20); White Blood Cell Count 8.91 K/mm3 (4.00-11.30)
[2018-12-11 07:02] LABS: Albumin, Blood 2.3 g/dL (3.4-5.0); Anion Gap 5 mmol/L (6-16); Blood Urea Nitrogen 8 mg/dL (8-24); Bun/Creatinine Ratio 13.8 (12.0-20.0); CO2, Blood 30 mmol/L (21-32); Calcium, Blood 7.7 mg/dL (8.5-10.1); Chloride, Blood 103 mmol/L (98-108); Creatinine, Blood 0.58 mg/dL (0.40-1.00); Glomerular Filtration Rate >60 (60-); Glucose, Blood 88 mg/dL (70-99); Phosphorus, Blood 3.6 mg/dL (2.5-4.9); Potassium, Blood 3.2 mmol/L (3.5-5.5); Sodium, Blood 138 mmol/L (136-145)
--- NOTE | 2018-12-11 10:07 | NUR ---
LATE ENTRY-PT REFUSAL PT REFUSED MORNING VITALS FROM ERIN THIS AM AT 0700. THIS RN ENTER ROOM AROUND 0900 TO TAKE PT VITALS. PT WAS RELUCTANT TO HAVING VITALS TAKEN DUE TO "BEING WOKEN UP ALL NIGHT" PT CURSED AT THIS RN. THIS RN EXPLAINED THE REASON & IMPORTANCE OF NEEDED VITALS AT THE BEGINING OF THE SHIFT. WILL CONTINUE TO EDUCATE & MONITOR.
--- NOTE | 2018-12-11 10:43 | NUR ---
REFUSING ASSESSMENT AT THIS TIME PT REFUSING FULL ASSESSMENT AT THIS TIME. PT STATES SHE "IS TOO TIRED & NEEDS REST" WILL ATTEMPT TO COMPLETE FULL ASSESSMENT WHEN PT IS AGREEABLE.
--- NOTE | 2018-12-11 11:22 | NUR ---
PT REFUSING CARE, IV, ASSESSMENT PT CONTINUES TO REFUSE A NEW IV PLACEMENT & REFUSES TO ALLOW THIS RN TO COMPLETE AN ASSESSMENT ON HER. PT STATES SHE WANTS IMMODIUM NOW DUE TO HER LOOSE STOOLS. PT INFORMED THAT DR. JONES WANTS A STOOL SAMPLE FIRST. WHEN INFORMED OF THIS PT BECAME ANGRY CURSING & YELLING AT STAFF THAT SHE WANTS TO LEAVE. PT STATES SHE HAS A CAR HERE & WILL DRIVE HERSELF HOME IF WE DO NOT LEAVE HER ALONE & GET HER IMMODIUM LIKE SHE ASKED. DR. JONES NOTIFIED OF PT BEHAVIOR & REFUSAL. DR. JONES ASKED THIS RN TO FIND OUT ABOUT HOW HER WOUND VAC WILL BE DELT WITH IF SHE LEAVES TODAY. DR. FRANZ TO BE CALLED & NOTIFIED OF PT BEHAVIOR.
--- NOTE | 2018-12-11 14:13 | NUR ---
PT LEFT AMA PT LEFT AMA. PT EDUCATED ON PROS VS CONS OF LEAVING AMA. PT STATES SHE NEEDS TO GO BIRD SITTER HER & SHE WILL BE BACK. PT REMINDED SHE IS UNABLE TO RETURN TO HER ROOM & HAS TO GO BACK TO THE ED IF SHE FEELS THE NEED TO. ASSISTANT ATTORNEY GENERALSIMONE CHANGED WOUND VAC TO A WET TO DRY DRESSING PER DR. CHILDERS ORDERED. THIS RN WAS UNABLE TO GET [facility] OFFICE TO MAKE APPOINTMENT. OFFICE NUMBER GIVEN TO PT. IV REMOVED & INTACT. PT WHEELED OUT OF FACILITY BY ASSISTANT ATTORNEY GENERALSIMONE.
== END 2018-12-11 13:39 | disposition left against medical advice (07) | DRG 580 ==
LOC: ER 02:04 → ERHOLD 02:05 → MEDS 02:05 → ERHOLD 02:05 → MEDS 07:36
PROVIDERS: Emergency Medicine; Family Medicine; Internal Medicine; Orthopaedic Surgery; Pharmacist; ADMIT Internal Medicine
PROC: 0JDG0ZZ Extraction of Right Lower Arm Subcutaneous Tissue and Fascia, Open Approach (ICD-10-PCS; 2018-12-08)
PROC: 0J9D0ZZ Drainage of Right Upper Arm Subcutaneous Tissue and Fascia, Open Approach (ICD-10-PCS; principal; 2018-12-08 11:30)
DX: L03.113 Cellulitis of right upper limb (principal); F11.20 Opioid dependence, uncomplicated; E83.39 Other disorders of phosphorus metabolism; D50.9 Iron deficiency anemia, unspecified; D47.3 Essential (hemorrhagic) thrombocythemia; F17.210 Nicotine dependence, cigarettes, uncomplicated; F41.9 Anxiety disorder, unspecified
CPT/HCPCS: 36415; 36430; 73200; 80048; 80053; 80069; 80202; 82607; 82728; 82746; 83540; 83550; 83605; 84100; 85025; 85027; 85610; 86850; 86900; 86901; 86923; 87040; 87070; 87075; 87077; 87147; 87186; 87205; 93306; 93971; 96365; 96366; 96367; 96376; 99284-25; A9270; A9270-GY; C1751; G0378; J0360; J0692; J1100; J1650; J1885; J2250; J2370; J2405; J2765; J2916; J3010; J3370; J7030; J7050; J7120; P9016

== ENCOUNTER 2018-12-11 23:11 | Inpatient (IN) | payer OTHER ==
[~2018-12-11] VITALS: Ht 165.1 cm; Wt 81.7 kg
[2018-12-12 01:10] LABS: BASOPHILS ABSOLUTE AUTO 0.07 K/mm3 (0.00-0.23); BASOPHILS PERCENT AUTO 1 % (0-2); EOSINOPHILS ABSOLUTE AUTO 0.23 K/mm3 (0.00-0.68); EOSINOPHILS PERCENT AUTO 2 % (0-6); Hemoglobin 9.8 g/dL (11.5-16.0); IMMATURE GRAN PERCENT AUTO 2 % (0-1); LYMPHOCYTES ABSOLUTE AUTO 2.04 K/mm3 (0.84-5.20); LYMPHOCYTES PERCENT AUTO 20 % (21-46); MONOCYTES ABSOLUTE AUTO 0.57 K/mm3 (0.16-1.47); MONOCYTES PERCENT AUTO 6 % (4-13); Mean Corpuscular HGB Conc 30.6 g/dL (31.5-36.5); Mean Corpuscular Volume 75 fL (80-100); Mean Platelet Volume 8.3 fL (9.1-12.4); NEUTROPHILS ABSOLUTE AUTO 7.21 K/mm3 (1.96-9.15); NEUTROPHILS PERCENT AUTO 70 % (41-73); Platelet Count 762 K/mm3 (150-400); RDW Coefficient Variation 17.2 % (11.7-14.2); RDW Standard Deviation 45.7 fL (35.1-46.3); Red Blood Cell Count 4.26 M/mm3 (3.80-5.20); White Blood Cell Count 10.32 K/mm3 (4.00-11.30)
[2018-12-12 01:29] LABS: Alanine Aminotransfer (ALT/SGP 22 U/L (12-78); Albumin/Globulin Ratio 0.6 (0.8-1.8); Alk Phos 219 U/L (50-136); Anion Gap 8 mmol/L (6-16); Aspartate Aminotrans (AST/SGOT 17 U/L (12-37); Bilirubin, Total 0.3 mg/dL (0.1-1.0); Blood Urea Nitrogen 10 mg/dL (8-24); Bun/Creatinine Ratio 18.1 (12.0-20.0); CO2, Blood 28 mmol/L (21-32); Calcium, Blood 8.5 mg/dL (8.5-10.1); Chloride, Blood 102 mmol/L (98-108); Creatinine, Blood 0.55 mg/dL (0.40-1.00); Globulin, Blood 4.9 g/dL (2.2-4.0); Glomerular Filtration Rate >60 (60-); Glucose, Blood 110 mg/dL (70-99); Sodium, Blood 138 mmol/L (136-145); Total Protein, Blood 7.9 g/dL (6.4-8.2)
--- NOTE | 2018-12-12 07:12 | NUR ---
SHIFT SUMMARY PT ARRIVED TO FLOOR IN NO DISTRESS. PT HAD NO COMPLAINTS OR ISSUES. PT IS AWAKE WATCHING TV AND BREATHING EASY. CALL LIGHT IN REACH.
--- NOTE | 2018-12-12 13:01 | NUR ---
PT CRYING IN RM PT CRYING IN ROOM ABOUT HER & HER SITUATION. PT ASKED TO GO OUT TO SMOKE. PT REMINDED THAT SHE CANNOT LEAVE TO SMOKE BECAUSE OF HER IV DRUG USE HISTORY. PT STARTED CRYING STATING SHE CAN'T STAY HERE WILL ALL THAT IS GOING ON IN HER LIFE. PT OFFERED A NICOTINE PATCH. PT STATES SHE DOES NOT WANT ONE. DR. JONES CALLED & NOTIFIED OF PT BEHAVIOR. STATES SHE WILL TAKE A LOOK AND CHART & ORDER SOMETHING TO CALM PT DOWN. WILL CONTINUE TO MONITOR.
--- NOTE | 2018-12-12 14:40 | NUR ---
PT THREATENING TO LEAVE PT THREATENING TO LEAVE BECAUSE SHE WANTS TO GO SMOKE. PT EDUCATED & DOES NOT UNDERSTAND THAT SHE CANNOT LEAVE BECAUSE OF HER IV DRUG USE. PT DOES NOT UNDERSTAND THAT HER FAMILY IS NOT SUFFICIENT SUPERVISION. PT LAST USED YESTERDAY AFTER LEAVING [facility] AMA. PT OFFERED NICOTINE PATCH. PT STATES THEY MAKE HER TOO ANXIOUS. PT OFFER XANAX. PT STATES IT DOESN'T WORK WELL ENOUGH. PT CURRENLTY RESTING IN BED. WILL CONTINUE TO ENFORCE REASON FOR PT ADMISSION.
--- NOTE | 2018-12-12 15:28 | NUR ---
SMOKING RESTRICTIONS DR. JONES CALLED ON BEHALF OF THE PT. PT STATING THAT SHE WILL LEAVE TO GO SMOKE NO MATTER WHAT. PT REMINDED SHE CANNOT LEAVE BECAUSE OF HER HISTORY OF USING THE DAY BEFORE. PT STATES SHE "DOESN'T CARE." DR. JONES STATED SHE MAY SMOKE IF A FAMILY MEMBER TAKES HER OUT VIA WHEELCHAIR DUE TO HER HIGH FALL RISK & SHE MUST RETURN WITHIN 10 MINUTES OR SHE WILL BE DISCHARGED FROM THE FACILITY. PT STATES SHE UNDERSTANDS. WILL CONTINUE TO MONITOR.
--- NOTE | 2018-12-12 16:49 | NUR ---
SHIFT SUMMARY PT HAS NEW PG TO THE R UA. PT EDUCATED ON THE IMPROTANCE OF LEAVING THE IV ALONE FOR IT TO REMAIN PATENT. PT EDUCATED ON RESTRICTIONS FOR SMOKING. SEE NOTE. PT CONTINUES TO REFUSE NICOTINE PATCH. PT MEDICATED FOR PAIN ONCE THIS SHIFT. WOUND CLEANED & REDRESSED. PICS TAKEN. VSS. NO OTHER CHANGES IN ASSESSMENT AT THIS TIME. WILL CONTINUE TO MONITOR UNTIL TURNOVER IS COMPLETE.
[2018-12-13 04:55] LABS: Albumin, Blood 2.5 g/dL (3.4-5.0); Anion Gap 4 mmol/L (6-16); Blood Urea Nitrogen 11 mg/dL (8-24); Bun/Creatinine Ratio 19.2 (12.0-20.0); CO2, Blood 29 mmol/L (21-32); Chloride, Blood 106 mmol/L (98-108); Creatinine, Blood 0.57 mg/dL (0.40-1.00); Glomerular Filtration Rate >60 (60-); Glucose, Blood 102 mg/dL (70-99); Sodium, Blood 139 mmol/L (136-145)
[2018-12-13 04:59] LABS: Vancomycin, Trough 15.5 ug/mL (5.0-10.0)
--- NOTE | 2018-12-13 06:17 | NUR ---
SHIFT SUMMARY PT'S MOOD CONTINUES TO BE LABILE. PLEASANT AND COOPERATIVE AT TIMES WHILE ANGRY AT OTHERS. YELLS AND IS VERBALLY AGRESSIVE TOWARDS STAFF AT TIMES. PT STATES THAT SHE "JUST WANTS TO SLEEP" AND YELLS WHEN BEING WOKEN FOR CARE. PT REPORTS PAIN TO BE 9/10 WHEN AWAKE, HOWEVER STATES THIS EVEN AFTER BEING WOKEN AND APPEARING COMFORTABLE WHILE SLEEPING. DRESSING TO RFA REMAINED CLEAN/DRY/INTACT. VSS. NO ACUTE CHANGES THIS SHIFT.
--- NOTE | 2018-12-13 09:41 | NUR ---
PATIENT LEFT AMA. PATIENT DISCONNECTED IV TUBING AND ATTEMPTED TO RIP OUT IV. KAZ HUNT RN ABLE TO REMOVE IV. PATIENT ESCORTED OUT BY SECURITY VIA W/C. NOTIFIED DR. JONES.
== END 2018-12-13 08:32 | disposition left against medical advice (07) | DRG 593 ==
LOC: ER 23:11 → MEDS 12-12 05:34
PROVIDERS: Emergency Medicine; ADMIT Internal Medicine
DX: L98.499 Non-pressure chronic ulcer of skin of other sites with unspecified severity (principal); L03.113 Cellulitis of right upper limb; F11.20 Opioid dependence, uncomplicated; M86.9 Osteomyelitis, unspecified; M86.631 Other chronic osteomyelitis, right radius and ulna; F17.210 Nicotine dependence, cigarettes, uncomplicated; F32.9 Major depressive disorder, single episode, unspecified; I10 Essential (primary) hypertension; E87.6 Hypokalemia; D69.6 Thrombocytopenia, unspecified; Z59.0 Homelessness; Z91.19 Patient's noncompliance with other medical treatment and regimen; G89.29 Other chronic pain; F41.9 Anxiety disorder, unspecified; M65.9 Synovitis and tenosynovitis, unspecified
CPT/HCPCS: 36415; 80048; 80053; 80069; 80202; 85025; 96365; 99284; C1751; J0692; J1650; J3010; J3370; J7050

== ENCOUNTER 2022-05-27 14:54 | Inpatient (IN) | payer MEDICARE, OTHER ==
[~2022-05-27] VITALS: Ht 157.5 cm; Wt 153.4 kg
[2022-05-27 15:47] LABS: BASOPHILS ABSOLUTE AUTO 0.08 K/mm3 (0.00-0.23); BASOPHILS PERCENT AUTO 1 % (0-2); EOSINOPHILS ABSOLUTE AUTO 0.07 K/mm3 (0.00-0.68); EOSINOPHILS PERCENT AUTO 1 % (0-6); Hematocrit 37.3 % (33.0-51.0); Hemoglobin 12.6 g/dL (11.5-16.0); IMMATURE GRAN ABSOLUTE AUTO 0.11 K/mm3 (0.00-0.10); IMMATURE GRAN PERCENT AUTO 1 % (0-1); LYMPHOCYTES PERCENT AUTO 10 % (21-46); MONOCYTES ABSOLUTE AUTO 0.65 K/mm3 (0.16-1.47); MONOCYTES PERCENT AUTO 6 % (4-13); Mean Corpuscular HGB 30.6 pg (26.0-34.0); Mean Corpuscular HGB Conc 33.8 g/dL (31.5-36.5); Mean Corpuscular Volume 91 fL (80-100); Mean Platelet Volume 9.4 fL (9.1-12.4); NEUTROPHILS ABSOLUTE AUTO 9.39 K/mm3 (1.96-9.15); NEUTROPHILS PERCENT AUTO 82 % (41-73); Platelet Count 412 K/mm3 (150-400); RDW Coefficient Variation 14.8 % (11.7-14.2); RDW Standard Deviation 49.1 fL (35.1-46.3); Red Blood Cell Count 4.12 M/mm3 (3.80-5.20)
[2022-05-27 16:09] LABS: Albumin/Globulin Ratio 0.7 (0.8-1.8); Bilirubin, Total 1.5 mg/dL (0.1-1.0); Bun/Creatinine Ratio 20.1 (12.0-20.0); Calcium, Blood 8.4 mg/dL (8.5-10.1); Creatinine, Blood 0.75 mg/dL (0.40-1.00); Globulin, Blood 4.2 g/dL (2.2-4.0); Potassium, Blood 3.3 mmol/L (3.5-5.5); Total Protein, Blood 7.2 g/dL (6.4-8.2)
[2022-05-27 19:35] LABS: Source, Urine Clean Catch
[2022-05-27 19:48] LABS: Appearance, Urine Hazy (Clear); Bilirubin, Urine Neg (Neg); Blood, Urine 5+ (Neg); Color, Urine Yellow (P-Yellow); Glucose Qualitative, Urine Neg (Neg); Ketones, Urine Neg (Neg); Leukocyte Esterase, Urine Neg (Neg); Nitrite, Urine Pos (Neg); Protein, Urine 2+ (Neg); Urobilinogen, Urine NORM (Normal)
[2022-05-27 20:02] LABS: Bacteria Many /hpf; Red Blood Cells, Urine 25-50 /hpf (0-2); Squamous Epithelial Cells Few /hpf (Few); White Blood Cells, Urine 0-2 /hpf (0-5)
[2022-05-27 20:25] LABS: Source, Urine Straight Cath
[2022-05-27 20:48] LABS: Appearance, Urine Clear (Clear); Bilirubin, Urine Neg (Neg); Blood, Urine 4+ (Neg); Color, Urine Yellow (P-Yellow); Glucose Qualitative, Urine Neg (Neg); Ketones, Urine Neg (Neg); Leukocyte Esterase, Urine 1+ (Neg); Nitrite, Urine Pos (Neg); Protein, Urine 2+ (Neg); Urobilinogen, Urine 1+ (Normal)
[2022-05-27 20:59] LABS: Bacteria Many /hpf; Red Blood Cells, Urine 0-2 /hpf (0-2); Squamous Epithelial Cells Rare /hpf (Few)
[2022-05-28 00:11] LABS: Hematocrit 38.9 % (33.0-51.0); Hemoglobin 12.8 g/dL (11.5-16.0)
[2022-05-28] MEDS ORDERED: GABA300 PO (01:43)
[2022-05-28] MEDS ORDERED: ATEN50 PO (01:44)
[2022-05-28] MEDS ORDERED: TRAZ100 PO (01:44)
[2022-05-28] MEDS ORDERED: BUME1 PO (01:45)
[2022-05-28] MEDS ORDERED: REXULTI1 MG PO (01:47)
[2022-05-28] MEDS ORDERED: BUPROPION XL150 M1 PO (01:47)
[2022-05-28] MEDS ORDERED: POTA10T PO (01:48)
[2022-05-28] MEDS ORDERED: IRON18 MG PO (01:48)
[2022-05-28] MEDS ORDERED: PANT20 PO (01:49)
--- NOTE | 2022-05-28 06:01 | NUR ---
SHIFT SUMMARY ASSUMED CARE OF PT AT 0050. PT IS A/OX4. HEART SOUNDS REGULAR. LUNG SOUNDS CLEAR. PT C/O SOB WHEN LAYING DOWN. PT REQUESTED O2, THIS NURSE EDUCATED PT ON HOW IT WAS A MEDICATION AND PT ONLY NEEDED IF NECESSARY. PT DID NOT NEED O2 AND REMAINED ABOVE 95%. PT USED PURWICK T/O THE NIGHT. PT STATES THAT SHE CANT WALK VERY WELL AND HAS INCREASED WEIGHT SINCE STOPPING METHADONE. PT STATES SHE ALSO THINKS HER BUMEX IS NOT WORKING SINCE SHE SWITCHED FROM [facility]. PT HAS REDDENED AREAS ALL OVER. PT STATES SHE HAS NOT BEEN ABLE TO CARE FOR SELF DUE TO INCREASED WEIGHT. SCANT AMOUNG OF BROWN/RED DRAINGE FROM VAGINA.
[2022-05-28 08:49] LABS: BASOPHILS ABSOLUTE AUTO 0.06 K/mm3 (0.00-0.23); BASOPHILS PERCENT AUTO 1 % (0-2); EOSINOPHILS ABSOLUTE AUTO 0.18 K/mm3 (0.00-0.68); EOSINOPHILS PERCENT AUTO 2 % (0-6); Hematocrit 36.8 % (33.0-51.0); Hemoglobin 12.5 g/dL (11.5-16.0); IMMATURE GRAN PERCENT AUTO 1 % (0-1); LYMPHOCYTES ABSOLUTE AUTO 1.81 K/mm3 (0.84-5.20); LYMPHOCYTES PERCENT AUTO 20 % (21-46); MONOCYTES ABSOLUTE AUTO 0.75 K/mm3 (0.16-1.47); MONOCYTES PERCENT AUTO 8 % (4-13); Mean Corpuscular HGB 31.1 pg (26.0-34.0); Mean Corpuscular Volume 92 fL (80-100); Mean Platelet Volume 9.3 fL (9.1-12.4); NEUTROPHILS PERCENT AUTO 68 % (41-73); Platelet Count 406 K/mm3 (150-400); RDW Coefficient Variation 14.7 % (11.7-14.2); RDW Standard Deviation 49.5 fL (35.1-46.3); Red Blood Cell Count 4.02 M/mm3 (3.80-5.20)
[2022-05-28 09:10] LABS: Albumin, Blood 2.9 g/dL (3.4-5.0); Albumin/Globulin Ratio 0.7 (0.8-1.8); Bilirubin, Total 1.3 mg/dL (0.1-1.0); Creatinine, Blood 0.75 mg/dL (0.40-1.00); Globulin, Blood 4.3 g/dL (2.2-4.0); Potassium, Blood 2.8 mmol/L (3.5-5.5); Total Protein, Blood 7.2 g/dL (6.4-8.2)
--- NOTE | 2022-05-28 10:00 | NUR ---
CARE ASSUMPTION This RN assumed care at 0700. Vital signs stable. spo2 >90% on room air. tele afib 110s. cardizem drip infusing. see emar. patient is alert and oriented x4. perrla. patient reports pain in abd and legs. medicated per emar. patient reports no shortness of breath. patient reports no chest pain/pressure. patient has a purwick in place that was changed this am. patient has reddness to folds in [place] area and under pannus and right breast-cleaned and powder applied. patient has cellulitis to bilateral lower extremities, that is warm to touch and red. patient has blanchable reddness to coccyx. see shift assessment for further detials. pictures in chart. Patient updated on plan of care. Patient verbalized understanding. Bed bath done and complete linen change. call light within reach and bed in lowest position with alarm on.
[2022-05-28 16:14] LABS: Hematocrit 38.3 % (33.0-51.0); Hemoglobin 12.6 g/dL (11.5-16.0)
--- NOTE | 2022-05-28 18:19 | NUR ---
SHIFT SUMMARY Patient neuro remains unchanged throughout this shift. Patient uses call light appropriately to make needs known. Patient has a purwick in place that was changed this shift. Patient has been repositioned to prevent skin breakdown. Physical therapy went in to work with the patient today. No acute changes this shift. Plan of care is up to date. Call light within reach with bed in lowest position.
[2022-05-29 05:31] LABS: BASOPHILS PERCENT AUTO 1 % (0-2); EOSINOPHILS ABSOLUTE AUTO 0.26 K/mm3 (0.00-0.68); EOSINOPHILS PERCENT AUTO 3 % (0-6); Hematocrit 38.8 % (33.0-51.0); Hemoglobin 12.6 g/dL (11.5-16.0); IMMATURE GRAN ABSOLUTE AUTO 0.13 K/mm3 (0.00-0.10); IMMATURE GRAN PERCENT AUTO 2 % (0-1); LYMPHOCYTES ABSOLUTE AUTO 2.19 K/mm3 (0.84-5.20); LYMPHOCYTES PERCENT AUTO 25 % (21-46); MONOCYTES PERCENT AUTO 9 % (4-13); Mean Corpuscular HGB Conc 32.5 g/dL (31.5-36.5); Mean Corpuscular Volume 92 fL (80-100); Mean Platelet Volume 9.1 fL (9.1-12.4); NEUTROPHILS ABSOLUTE AUTO 5.17 K/mm3 (1.96-9.15); NEUTROPHILS PERCENT AUTO 60 % (41-73); Platelet Count 409 K/mm3 (150-400); RDW Coefficient Variation 14.8 % (11.7-14.2); RDW Standard Deviation 50.5 fL (35.1-46.3); White Blood Cell Count 8.65 K/mm3 (4.00-11.30)
--- NOTE | 2022-05-29 05:43 | NUR ---
[place] [address]. PT IS A/OX4. HEART SOUNDS IRREGULAR. RATE TOUCHED INTO THE 80S WHILE SLEEPING BUT STILL BOUNCED TO 130S AT TIMES. PT REMAINED ON 5 OF CARDIZEM T/O THE NIGHT. PT FOLDS WERE CLEAN AND POWDER APPLIED. PT USED PURWICK T/O THE NIGHT. PT C/O PAIN IN LEGS BUT STATES LEG SWELLING IS GETTING BETTER, MEDICATED PER EMAR. PT LACKS MOTIVATION TO DO THINGS HERSELF. PT STATES HER NAILS ARE TOO LONG TO PRESS BED BOTTONS. PT ALSO ASKS TO HAVE WATER BROUGHT TO MOUTH BECAUSE SHE DIDNT WANT TO COVER HER HANDS UP AGAIN.
[2022-05-29 05:52] LABS: Bun/Creatinine Ratio 17.5 (12.0-20.0); Calcium, Blood 8.3 mg/dL (8.5-10.1); Creatinine, Blood 0.97 mg/dL (0.40-1.00); Potassium, Blood 3.6 mmol/L (3.5-5.5)
--- NOTE | 2022-05-29 18:16 | NUR ---
END OF SHIFT: PATIENT IS ALERT AND ORIENTED IMPROVED ANXIETY WITH REXULTI HOME MED. PATIENT HAS BEEN REFUSING REPOSITIONINGS THROUGHOUT MOST OF THE DAY. WAS ABLE TO REPOSITION WELL AFTER MANY IN-DEPTH CONVERSATION ON WOUND PREVENTION. PATIENT DENIES CHEST PAIN IS ON 5 OF DILT, BEEN 90-120'S AFTER 5MG LOPRESSORE PUSH THIS AFTERNOON. PATIENT TOLERATING WELL BLOOD PRESSURE NORMOTENSIVE. PATIENT HAS HAD AN INCREASE TO VAGINAL BLEEDING, HEPARIN DC'D AND CBC IN THE AM. PATIENT HAS NOT HAD A BM TODAY, PATIENT TOLERATING A DECREASE OF FLUID INTAKE. PATIENT HAS BEEN CALLING FREQUENT, WITH MOST CALLS BEING APPROPRIATE. WILL CONTINUE TO MONITOR UNTIL SHIFT CHANGE.
--- NOTE | 2022-05-29 19:37 | NUR ---
ASSUMED PT CARE FORM ODIN LEONG ON . PT RESTING IN BED WITH EYE CLOSED AT THIS TIME. APPEARS TO BE SLEEPING. CARDIZEM GTT INFUSING @ 5 MG/HR. HR IS LOW 100'S IN A-FIB RHYTHM AT THIS TIME. WILL MONITOR. CALL LIGHT IN REACH. DOES NOT APPEAR IN ANY VISIBLE DISTRESS AT THIS TIME.
--- NOTE | 2022-05-29 22:01 | NUR ---
PT IS A&OX4. DENIES ANY CHEST PAIN. REPORTS CURRENT SOB DUE TO BEING UPSET AT HAVING TO WAIT FOR MEDICATIONS BUT USUALLY NO SOB. O2 SATS AT > 92% ON RA. REPORTS SLIGHT NAUSEA AT THIS TIME BUT DECLINES NEEDING MEDICATIONS. MEDICATED FOR PAIN, SEE EMAR, AT PT REQUEST. REPOSITIONED FOR COMFORT. CALL LIGHT IN REACH.
[2022-05-30 05:04] LABS: BASOPHILS ABSOLUTE AUTO 0.08 K/mm3 (0.00-0.23); BASOPHILS PERCENT AUTO 1 % (0-2); EOSINOPHILS ABSOLUTE AUTO 0.26 K/mm3 (0.00-0.68); EOSINOPHILS PERCENT AUTO 3 % (0-6); Hematocrit 35.2 % (33.0-51.0); Hemoglobin 11.5 g/dL (11.5-16.0); IMMATURE GRAN ABSOLUTE AUTO 0.18 K/mm3 (0.00-0.10); IMMATURE GRAN PERCENT AUTO 2 % (0-1); LYMPHOCYTES ABSOLUTE AUTO 1.44 K/mm3 (0.84-5.20); LYMPHOCYTES PERCENT AUTO 18 % (21-46); MONOCYTES PERCENT AUTO 9 % (4-13); Mean Corpuscular HGB 30.2 pg (26.0-34.0); Mean Corpuscular HGB Conc 32.7 g/dL (31.5-36.5); Mean Corpuscular Volume 92 fL (80-100); Mean Platelet Volume 9.1 fL (9.1-12.4); NEUTROPHILS ABSOLUTE AUTO 5.45 K/mm3 (1.96-9.15); NEUTROPHILS PERCENT AUTO 67 % (41-73); Platelet Count 346 K/mm3 (150-400); RDW Coefficient Variation 14.7 % (11.7-14.2); Red Blood Cell Count 3.81 M/mm3 (3.80-5.20); White Blood Cell Count 8.11 K/mm3 (4.00-11.30)
--- NOTE | 2022-05-30 05:29 | NUR ---
REPOSITIONED 2-3 TIMES THROUGHOUT NIGHT. PT RESISTANT TO BE MOVED SIGNIFICANT AMOUNT WITH REPOSITIONING BUT ALLOWS PILLOWS TO BE PULLED SLIGHTLY. PT ENCOURAGED TO MOVE SELF IN BED MUCH POSSIBLE WHEN REPOSITIONED. PT HR CONTINUES TO BE IN 90-100'S ON 5 MG/HR ON CARDIZEM GTT. NO ACUTE CHANGES NOTED DURING THIS SHIFT.
[2022-05-30 05:33] LABS: Albumin, Blood 2.6 g/dL (3.4-5.0); Anion Gap 4 mmol/L (6-16); Blood Urea Nitrogen 19 mg/dL (8-24); Bun/Creatinine Ratio 21.4 (12.0-20.0); CO2, Blood 32 mmol/L (21-32); Calcium, Blood 7.9 mg/dL (8.5-10.1); Chloride, Blood 97 mmol/L (98-108); Creatinine, Blood 0.89 mg/dL (0.40-1.00); Glomerular Filtration Rate 72 (60-); Glucose, Blood 122 mg/dL (70-99); Magnesium, Blood 1.9 mg/dL (1.6-2.4); Phosphorus, Blood 3.8 mg/dL (2.5-4.9); Potassium, Blood 3.1 mmol/L (3.5-5.5); Sodium, Blood 133 mmol/L (136-145)
--- NOTE | 2022-05-30 08:19 | NUR ---
ASSUMPTION OF CARE: PATIENT IS ALERT AND ORIENTED, ROOM IS CLEAN, PATIENT WITH BM THROUGH THE NIGHT CARDIZEM IS INFUSING AT 5 BLOODPRESSURE MAINTAINING, MORNING MEDS GIVEN BY THIS HOOK PULLER NO SIGNS OF ACUTE DISTRESS, PATIENT HAD SOME ANXIETY WITH A SMALL AMOUNT OF CHEST PAIN THROUGH THE NIGHT LASTING LESS THAN 30 SECONDS AND SELF RESOLVED, K+ REPLACEMENT AND METOPROLO HAS BEEN INCREASED TO HELP WITH IA HR 90-120. NO LOPRESSOR THROUGH THE NIGHT. EXERTIONAL HR OF 130-140. WILL CONTINUE TO MONITOR ORAL MEDICATIONS WILL BE ON BOARD BEFORE NEED FOR IV LOPRESSOR. PATIENT RECIEVING HOME MED AND NOTICABLE HAS IMPROVED WITH ANX/DEP. WILL CONTINUE TO MONITOR UNTIL SHIFT CHANGE.
--- NOTE | 2022-05-30 18:39 | NUR ---
END OF SHIFT: CHANGES FROM ASSUMPTION OF CARE ARE PATIETN IS NO LONGER BLEEDING THROUGH PUREWIK, PATIENT IS OFF OF DILTIAZAM. METOPROLOL INCREASED TO 100 BID AND METOPROLOL PUSHES AND RECIEVED 40 MEQ OF K+. STILL DENIES CHEST PAIN OR PRESSURE. DIRECTOR OF RETAIL ANALYTICS CONSULT DR. MELLO, CONSULTED AND SEEN. SCDS PLACED AND SHE WEARS FOR ABOUT 2 HOURS AT A TIME DUE TO DISCOMFORT. PATIENT HAS BEEN COOPERATIVE WITH CARE AND Q2 REPOSITIONS ENCOURAGED, BUT DUE TO PATIENT PREFERENCE PATIENT HAS BEEN REPOSITIONED ABOUT Q4. WILL CONTINUE TO MONITOR AND EDUCATE. NO CONCERNS BESIDE POTENTIAL NEED FOR BIOPSY OUTPATIENT FROM DIRECTOR OF RETAIL ANALYTICS PLEASE SEE CONSULT NOTE.
[2022-05-31 04:08] LABS: Albumin, Blood 2.6 g/dL (3.4-5.0); Anion Gap 7 mmol/L (6-16); Blood Urea Nitrogen 16 mg/dL (8-24); Bun/Creatinine Ratio 18.5 (12.0-20.0); CO2, Blood 32 mmol/L (21-32); Calcium, Blood 7.7 mg/dL (8.5-10.1); Chloride, Blood 99 mmol/L (98-108); Creatinine, Blood 0.87 mg/dL (0.40-1.00); Glomerular Filtration Rate 74 (60-); Glucose, Blood 120 mg/dL (70-99); Magnesium, Blood 1.9 mg/dL (1.6-2.4); Phosphorus, Blood 3.1 mg/dL (2.5-4.9); Potassium, Blood 3.3 mmol/L (3.5-5.5); Sodium, Blood 138 mmol/L (136-145)
--- NOTE | 2022-05-31 05:58 | NUR ---
FORENSIC SCIENCE EXAMINER SUMMARY ASSUMED CARE OF THE PT AT 1900. SHE IS ALERT AND ORIENTED X3, FOLLOWS DIRECTIONS TO THE BEST OF HER PHYSICAL ABILITY. SHE WAS MEDICATED X2 FOR PAIN IN HER RIGHT LEG. PT HAD A DIFFICULT TIME WITH BM LAST NIGHT AND REQUESTED STOOL SOFTENERS FOR TODAY. PT WAS AFIB ON THE MONITOR UP TO THE 120S WITH EXERTION BUT IMPROVED AFTER HS TOPROL XL AND SHE HAS BEEN IN THE 100S TO 110S. PT SATTING >92% ON RA. BP STABLE. CONTINUES TO REQUEST MORE FLUIDS DESPITE EDUCATION ABOUT HER FLUID RESTRICTION.
--- NOTE | 2022-05-31 11:28 | NUR ---
ASSUMPTION OF CARE: PATIENT IS ALERT AND ORIENTED, NO CHANGE FROM PREVIOUS SHIFT OR ASSESSMENT. PATIENT HAS BEEN TO CT FOR ABD AND PELVIC. PT/OT WILL BE SEEING PATIENT SHE IS NOW IN A RECLINER. PAIN CONTROLLED WITH TRAMADOL EXCEPT FOR AT NIGHT SHE ENDORSES INCREASED PAIN, WILL CONFIRM WITH PROVIDER ABILITY FOR TORDAL AFTER CT WITH CONTRAST. DENIES CHEST PAIN OR PRESSURE. SPO2 >93% ON RA. INCREASED MOBILITY OF LOWER LIMBS, STILL VERY POOR. PURWIK IN PLACE CANISTER AND PURWIK CHANGED AND ATTENDS CHANGED. WILL CONTINUE TO MONITOR UNTIL SHIFT CHANGE. NO CONCERNS FROM THIS RN AT THIS TIME.
--- NOTE | 2022-05-31 19:16 | NUR ---
END OF SHIFT: NO CHANGES FROM ASUMPTION OF CARE. PATIENT WAS ABLE TO BE STAND WITH 2 PERSON MOD-MAX ASSIST. NYSTATIN TI DESENEX. INCREASE TO METOPROLOL WILL START TONIGHT. AM RN TO [place] BP AND IF LOW CALL PROVIDER. HR WSA TYPICALLY 110'S TO 120'S ONE METOPROLOL PUSH GIVEN. PAIN INCREASED WITH MOVEMENT. PURWIK CHANGED AND I&O MAINTAINED. NO CONCERNS FROM THIS RN AT THIS TIME. STILL NO CHEST PAIN PRESSURE OR SOB.
[2022-06-01 04:51] LABS: Albumin, Blood 2.6 g/dL (3.4-5.0); Anion Gap 3 mmol/L (6-16); Blood Urea Nitrogen 17 mg/dL (8-24); Bun/Creatinine Ratio 20.8 (12.0-20.0); CO2, Blood 32 mmol/L (21-32); Calcium, Blood 7.7 mg/dL (8.5-10.1); Chloride, Blood 100 mmol/L (98-108); Creatinine, Blood 0.82 mg/dL (0.40-1.00); Glomerular Filtration Rate 79 (60-); Glucose, Blood 111 mg/dL (70-99); Magnesium, Blood 1.9 mg/dL (1.6-2.4); Phosphorus, Blood 3.4 mg/dL (2.5-4.9); Potassium, Blood 3.4 mmol/L (3.5-5.5); Sodium, Blood 135 mmol/L (136-145)
--- NOTE | 2022-06-01 05:11 | NUR ---
CONTACTED DR NICOLE REGARDING PT BP OF 72/59 (MAP OF 65) FOLLOWING ADMINISTRATION OF 150 MG PO TOPROL XL AT [address] NICOLE, CONTINUE TO MONITOR PT BP AND HOLD NEXT DOSE.
--- NOTE | 2022-06-01 06:30 | NUR ---
INSURANCE ACCOUNT SPECIALIST SUMMARY ASSUMED CARE OF THE PT AT 1900. SHE IS ALERT AND ORIENTED X4, COOPERATIVE TO THE BEST OF HER ABILITY. PT APPEARS TO BE MORE MOTIVATED TO ASSIST WITH ROLLING AND CHANGES THIS SHIFT. PT HAD SOME HYPOTENSION FOLLOWING INCREASE IN TOPROL SO MORNING DOSE WILL BE HELD PER DR NICOLE. SHE HAD A SOFTBALL SIZED HARD BM THIS SHIFT. PT MEDICATED X1 WITH TORADOL FOR PAIN IN HER RIGHT LEG.
--- NOTE | 2022-06-01 18:15 | NUR ---
PT SUMMARY: PT ALERT AND ORIENTED X4, PT WILL YELL OUT FOR HELP OCCASIONALLY PT WAS REDIRECTED TO USE CALL LIGHTS. VITALS HRR AFIB 100-140'S HRR INCREASES WITH EXERTION, SBP 110'S, SATS ABOVE 95% ON RA, AFEBRILE. PT THEN C/O SOB AT LUNCH TIME REQUESTED 02 FOR COMFORT, PT PLACED ON 1L. DR RAMESH CALLED AND MADE AWARE ORDER TO START PT ON DIGOXIN LOAD THEN INCREASE BUMEX TO 3MG. PT'S HRR STILL RANGING 90-120'S AT THIS TIME, SOB IS MUCH BETTER PT PUT OUT 850MLS OF DARK YELLOW URINE VIA PUREWICK. PT WORKED WITH PT/OT WELL THE ONLY ISSUES IS HR INCREASES. PT WAS UP IN THE RECLINER FOR LUNCH TIME. PAIN MEDS GIVEN FOR RIGHT SIDE PAIN X1, REPOSITIONED WELL FOR COMFORT. PT DENIES ANY CHEST PAIN/PRESSURE. NO OTHER COMPLAINS FOR THE SHIFT. AWAITING FOR PLACEMENT. WILL REPORT TO ONCOMING SHIFT
--- NOTE | 2022-06-01 21:21 | NUR ---
ASSUMPTION OF CARE THIS RN ASSUMED CARE OF PATIENT AT 1900. REPORT TAKEN FROM TULIO RN. PATIENT CONTINUES TO BE IN AFIB WITH HR 100-120 AT TIME OF SHIFT CHANGE. SBP 100. AFEBRILE. SPO2 >92% ON 1L VIA NC. PATIENT IS ALERT AND ORIENTED FULLY. PATIENT WAS ASSISTED BY AIDE WITH BEDPAN AND HAD A FORMED BROWN STOOL. AIDE REPORTED TO THIS RN REGARDING NATI RED BLOOD THAT WAS NOTED. AIDE REPORTED THAT IT APPEARED TO COME FROM HER RECTUM AND NOT THE VAGINA, PT DENIES URINATING WHILE ON BEDPAN. THIS RN ASSESSED OUTPUT NOTING NATI RED TINGED LIQUID IN BEDPAN WITH BROWN FORMED STOOL. PATIENT WITH HX OF VAGINAL BLEEDING; WILL CONTINUE TO MONITOR. BED IN LOWEST POSITION AND CALL LIGHT WITHIN REACH.
[2022-06-02 04:53] LABS: Albumin, Blood 2.6 g/dL (3.4-5.0); Anion Gap 2 mmol/L (6-16); Blood Urea Nitrogen 17 mg/dL (8-24); Bun/Creatinine Ratio 19.7 (12.0-20.0); CO2, Blood 35 mmol/L (21-32); Calcium, Blood 7.8 mg/dL (8.5-10.1); Chloride, Blood 97 mmol/L (98-108); Creatinine, Blood 0.86 mg/dL (0.40-1.00); Digoxin (Lanoxin) 0.83 ug/mL (0.80-2.00); Glomerular Filtration Rate 75 (60-); Glucose, Blood 134 mg/dL (70-99); Magnesium, Blood 1.9 mg/dL (1.6-2.4); Phosphorus, Blood 3.4 mg/dL (2.5-4.9); Potassium, Blood 3.7 mmol/L (3.5-5.5); Sodium, Blood 134 mmol/L (136-145)
--- NOTE | 2022-06-02 05:08 | NUR ---
SHIFT SUMMARY NO ACUTE CHANGES OVERNIGHT. ALERT AND ORIENTED FULLY. NO CHANGES TO NEURO. SBP 90-100'S. AFIB ON MONITOR WITH HR TREND IN THE 90'S. AFEBRILE. SEE PREVIOUS NOTE REGARDING BLOODY DISCHARGE IN BEDPAN. PATIENT CONTINUES TO BE DEMANDING AND YELLS OUT IF STAFF DOES NOT ANSWER CALL LIGHT IMMEDIATELY. PATIENT EDUCATED ON STAFF NEEDING TO PRIORITIZE PATIENT'S ACCORDING TO ACUITY LEVEL. PATIENT RESISTANT TO EDUCATION DESPITE LOW LEVEL PRIORITY REQUESTS SUCH ICE WATER AND MOVING HER BLANKET. PATIENT EDUCATED BY THIS RN TO TREAT STAFF WITH RESPECT AFTER COMPLAINING ABOUT OTHER STAFF MEMBERS. WILL CONTINUE TO MONITOR. REPOSITIONING Q2HRS. PUREWICK IN PLACE DRAINING WILLIAM COLORED URINE. CREAM/POWDER APPLIED PER EMAR AND NEEDED. PERIAREA KEPT CLEAN/DRY. BED IN LOWEST POSITION AND CALL LIGHT WITHIN REACH. THIS RN WILL CONTINUE TO MONITOR UNTIL SHIFT CHANGE AT 0700.
[2022-06-02] MEDS ORDERED: METO100ER PO (11:37)
[2022-06-02] MEDS ORDERED: GABA300 PO (11:45)
[2022-06-02] MEDS ORDERED: DIGOX125 MC1 PO (11:48)
[2022-06-02] MEDS ORDERED: NYSTRIT TOP (11:49)
[2022-06-02] MEDS ORDERED: TRAM50 PO (11:49)
[2022-06-02] MEDS ORDERED: DOCUZEN 8.6-501 EACH PO (11:50)
[2022-06-02 12:17] LABS: SARS-Cov-2 (COVID-19) PCR, MMC NEGATIVE (NEGATIVE)
--- NOTE | 2022-06-02 14:45 | NUR ---
PT DISCHARGE TO [facility] WITH DISCHARGE ORDERS. REPORT GIVEN TO CÉSAR LEONG. HARD SCRIPT FOR TRAMADOL SENT ALONG WITH THE PACKET DC ORDERS. PT TO FF-UP WITH OB AND PCP WITHIN A WEEK APPT MADE AND SET UP FOR 06/07/22 AND 06/11/22. NO ISSUES PRIOR TO DISCHARGE HRR 90-120'S, DENIES CHEST PAIN OR PRESSURE. SBP 110-115'S, SATS ABOVE 95% ON RA, AFEBRILE. PT WAS ABLE TO WORK WITH PT/OT TODAY ABLE TO STAND VIA WALKER. ALL BELONGINGS SENT WITH THE PT, TRANSPORTATION ARRIVED AT 1430.
== END 2022-06-02 14:38 | DRG 871 ==
LOC: ER 14:54 → PCU 14:55
PROVIDERS: Internal Medicine; Student in an Organized Health Care Education/Training Program; ADMIT Internal Medicine
DX: A41.51 Sepsis due to Escherichia coli [E. coli] (principal); I50.33 Acute on chronic diastolic (congestive) heart failure; N39.0 Urinary tract infection, site not specified; Z68.42 Body mass index [BMI] 45.0-49.9, adult; I48.91 Unspecified atrial fibrillation; Z20.822 Contact with and (suspected) exposure to COVID-19; Z23 Encounter for immunization; E66.01 Morbid (severe) obesity due to excess calories; J44.9 Chronic obstructive pulmonary disease, unspecified; F11.11 Opioid abuse, in remission; F32.A Depression, unspecified; I11.0 Hypertensive heart disease with heart failure; F17.210 Nicotine dependence, cigarettes, uncomplicated; E87.6 Hypokalemia; N95.0 Postmenopausal bleeding; Z86.718 Personal history of other venous thrombosis and embolism; Z74.01 Bed confinement status; Z98.891 History of uterine scar from previous surgery; Z98.890 Other specified postprocedural states; Z88.0 Allergy status to penicillin; Z88.5 Allergy status to narcotic agent; Z88.8 Allergy status to other drugs, medicaments and biological substances; Z79.899 Other long term (current) drug therapy
CPT/HCPCS: 36415; 51701; 71045; 74177; 76830; 76856; 80048; 80053; 80069; 80162; 81001; 83735; 83880; 84132; 85014; 85018; 85025; 86850; 86900; 86901; 87077; 87086; 87186; 90686; 93005; 93010; 96365-59; 96366-59; 96375-59; 96376-59; 97110; 97112; 97161; 97166; 97530; 99285-25; A9270; C1751; C8929; G0008; G0378; J0696; J1160; J1644; J1885; J2405; J3480; J7050; Q9957; Q9967; U0004

== ENCOUNTER → 2022-08-06 | Outpatient (CLI) | payer OTHER ==
[~2022-08-06] MED LIST changes: +ALPRAZOLAM0.5 M1 PO; +ATEN50 PO; +BUME1 PO; +BUPROPION XL150 M1 PO; +DIGOX125 MC1 PO; +DOCUZEN 8.6-501 EACH PO; +EUTHYROX50 MC1 PO; +GABA300 PO; +IRON18 MG PO; +METO100ER PO; +NEURONTIN300 MG PO; +NITR100CA PO; +NYSTRIT TOP; +PANT20 PO; +POTA10T PO; +REXULTI1 MG PO; +TRAZ100 PO; +XARELTO20 M1 PO
[2022-08-06 12:24] LABS: Source, Urine Clean Catch
[2022-08-06 13:44] LABS: Appearance, Urine Clear (Clear); Bilirubin, Urine Neg (Neg); Blood, Urine 1+ (Neg); Color, Urine Yellow (P-Yellow); Glucose Qualitative, Urine Neg (Neg); Ketones, Urine Neg (Neg); Leukocyte Esterase, Urine Neg (Neg); Nitrite, Urine Neg (Neg); Protein, Urine 1+ (Neg); Specific Gravity, Urine 1.015 (1.003-1.022); Urobilinogen, Urine NORM (Normal)
[2022-08-06 15:27] LABS: Red Blood Cells, Urine 0-2 /hpf (0-2); White Blood Cells, Urine 0-2 /hpf (0-5)
[2022-08-06 15:28] LABS: Bacteria Few /hpf; Squamous Epithelial Cells Few /hpf (Few)
== END | disposition home or self-care (01) ==
LOC: LAB 12:22 → LAB SHORT 12:22
PROVIDERS: Family Medicine
DX: N39.0 Urinary tract infection, site not specified (principal)
CPT/HCPCS: 81001

== ENCOUNTER 2022-08-11 12:40 | Emergency (ER) | payer OTHER ==
[~2022-08-11] VITALS: Ht 157.5 cm; Wt 127.0 kg
[~2022-08-11 12:40] MED LIST changes: -ALPRAZOLAM0.5 M1 PO; -EUTHYROX50 MC1 PO; -NEURONTIN300 MG PO; -NITR100CA PO; -XARELTO20 M1 PO
[2022-08-11] MEDS ORDERED: XARELTO20 M1 PO (12:53)
[2022-08-11] MEDS ORDERED: ALPRAZOLAM0.5 M1 PO (12:54)
[2022-08-11] MEDS ORDERED: EUTHYROX50 MC1 PO (12:54)
[2022-08-11] MEDS ORDERED: PRED20 PO (12:54)
[2022-08-11] MEDS ORDERED: NEURONTIN300 MG PO (12:55)
[2022-08-11 13:50] LABS: BASOPHILS ABSOLUTE AUTO 0.11 K/mm3 (0.00-0.23); BASOPHILS PERCENT AUTO 1 % (0-2); EOSINOPHILS ABSOLUTE AUTO 0.16 K/mm3 (0.00-0.68); EOSINOPHILS PERCENT AUTO 1 % (0-6); Hemoglobin 13.6 g/dL (11.5-16.0); IMMATURE GRAN ABSOLUTE AUTO 0.29 K/mm3 (0.00-0.10); IMMATURE GRAN PERCENT AUTO 2 % (0-1); LYMPHOCYTES PERCENT AUTO 9 % (21-46); MONOCYTES ABSOLUTE AUTO 0.47 K/mm3 (0.16-1.47); MONOCYTES PERCENT AUTO 3 % (4-13); Mean Corpuscular HGB 29.8 pg (26.0-34.0); Mean Corpuscular HGB Conc 33.2 g/dL (31.5-36.5); Mean Corpuscular Volume 90 fL (80-100); Mean Platelet Volume 9.5 fL (9.1-12.4); NEUTROPHILS ABSOLUTE AUTO 11.69 K/mm3 (1.96-9.15); NEUTROPHILS PERCENT AUTO 83 % (41-73); Platelet Count 363 K/mm3 (150-400); RDW Coefficient Variation 14.7 % (11.7-14.2); RDW Standard Deviation 47.9 fL (35.1-46.3); Red Blood Cell Count 4.57 M/mm3 (3.80-5.20); White Blood Cell Count 14.02 K/mm3 (4.00-11.30)
[2022-08-11 14:18] LABS: Albumin, Blood 2.6 g/dL (3.4-5.0); Albumin/Globulin Ratio 0.6 (0.8-1.8); Bilirubin, Total 0.6 mg/dL (0.1-1.0); Bun/Creatinine Ratio 14.7 (12.0-20.0); Calcium, Blood 8.3 mg/dL (8.5-10.1); Creatinine, Blood 0.68 mg/dL (0.40-1.00); Globulin, Blood 4.4 g/dL (2.2-4.0); Potassium, Blood 3.2 mmol/L (3.5-5.5)
[2022-08-11 14:59] LABS: Source, Urine Straight Cath
[2022-08-11 15:04] LABS: Bilirubin, Urine Neg (Neg); Blood, Urine 2+ (Neg); Color, Urine Yellow (P-Yellow); Glucose Qualitative, Urine Neg (Neg); Ketones, Urine Neg (Neg); Leukocyte Esterase, Urine Neg (Neg); Nitrite, Urine Neg (Neg); Protein, Urine 1+ (Neg); Specific Gravity, Urine 1.015 (1.003-1.022); Urobilinogen, Urine NORM (Normal); pH, Urine 6.5 (5.0-8.0)
[2022-08-11 15:34] LABS: Appearance, Urine Hazy (Clear)
[2022-08-11 15:35] LABS: Bacteria Mod /hpf; Mucus Light (0-Heavy); Renal Epithelial Rare /hpf (0-Rare); Squamous Epithelial Cells Mod /hpf (Few); Transitional Epithelial Cells Rare /hpf (0-Rare); White Blood Cells, Urine 0-2 /hpf (0-5)
[2022-08-11] MEDS ORDERED: NITR100CA PO (16:43)
[2022-08-11 17:42] VITALS: BP 128/76
== END 2022-08-11 17:55 | disposition home or self-care (01) ==
LOC: ER 12:40
PROVIDERS: Emergency Medicine
DX: I11.0 Hypertensive heart disease with heart failure (principal); I50.9 Heart failure, unspecified; N39.0 Urinary tract infection, site not specified; R51.9 Headache, unspecified; F17.210 Nicotine dependence, cigarettes, uncomplicated; Z88.5 Allergy status to narcotic agent; Z88.8 Allergy status to other drugs, medicaments and biological substances; Z88.0 Allergy status to penicillin; Z79.01 Long term (current) use of anticoagulants; Z79.52 Long term (current) use of systemic steroids; Z79.899 Other long term (current) drug therapy
CPT/HCPCS: 51701; 70450; 74177; 80053; 81001; 85025; A9270; Q9967

== ENCOUNTER 2022-11-03 10:34 | Inpatient (IN) | payer OTHER ==
[~2022-11-03] VITALS: Ht 157.5 cm; Wt 140.0 kg
[~2022-11-03 10:34] MED LIST changes: +ACET500 PO; +ALPRAZOLAM0.5 M1 PO; +EUTHYROX50 MC1 PO; +GABA400 PO; -METO100ER PO; +METO50ER PO; +NEURONTIN300 MG PO; +NITR100CA PO; +XARELTO20 M1 PO
[2022-11-03 11:11] LABS: BASOPHILS ABSOLUTE AUTO 0.07 K/mm3 (0.00-0.23); BASOPHILS PERCENT AUTO 1 % (0-2); EOSINOPHILS ABSOLUTE AUTO 0.39 K/mm3 (0.00-0.68); EOSINOPHILS PERCENT AUTO 4 % (0-6); Hematocrit 40.3 % (33.0-51.0); IMMATURE GRAN ABSOLUTE AUTO 0.14 K/mm3 (0.00-0.10); IMMATURE GRAN PERCENT AUTO 2 % (0-1); LYMPHOCYTES ABSOLUTE AUTO 1.58 K/mm3 (0.84-5.20); LYMPHOCYTES PERCENT AUTO 17 % (21-46); MONOCYTES ABSOLUTE AUTO 0.44 K/mm3 (0.16-1.47); MONOCYTES PERCENT AUTO 5 % (4-13); Mean Corpuscular HGB 29.3 pg (26.0-34.0); Mean Corpuscular HGB Conc 32.3 g/dL (31.5-36.5); Mean Corpuscular Volume 91 fL (80-100); Mean Platelet Volume 9.6 fL (9.1-12.4); NEUTROPHILS ABSOLUTE AUTO 6.94 K/mm3 (1.96-9.15); NEUTROPHILS PERCENT AUTO 73 % (41-73); Platelet Count 346 K/mm3 (150-400); RDW Coefficient Variation 14.5 % (11.7-14.2); RDW Standard Deviation 47.8 fL (35.1-46.3); Red Blood Cell Count 4.44 M/mm3 (3.80-5.20); White Blood Cell Count 9.56 K/mm3 (4.00-11.30)
[2022-11-03 12:43] LABS: Digoxin (Lanoxin) 0.57 ug/mL (0.80-2.00)
[2022-11-03 12:44] LABS: Alanine Aminotransfer (ALT/SGP 32 U/L (12-78); Albumin/Globulin Ratio 0.7 (0.8-1.8); Alk Phos 116 U/L (50-136); Aspartate Aminotrans (AST/SGOT 21 U/L (12-37); Bilirubin, Total 0.8 mg/dL (0.1-1.0); Blood Urea Nitrogen 15 mg/dL (8-24); Bun/Creatinine Ratio 19.8 (12.0-20.0); CO2, Blood 28 mmol/L (21-32); Calcium, Blood 8.3 mg/dL (8.5-10.1); Creatinine, Blood 0.76 mg/dL (0.40-1.00); Globulin, Blood 4.4 g/dL (2.2-4.0); Glomerular Filtration Rate 87 (60-); Glucose, Blood 175 mg/dL (70-99); Total Protein, Blood 7.4 g/dL (6.4-8.2)
[2022-11-03 13:24] LABS: Anion Gap 7 mmol/L (6-16); Chloride, Blood 104 mmol/L (98-108); Potassium, Blood 3.8 mmol/L (3.5-5.5); Sodium, Blood 139 mmol/L (136-145)
[2022-11-03] MEDS ORDERED: PANT20 PO (14:39)
[2022-11-03] MEDS ORDERED: DIGOX125 MC1 PO (14:40)
[2022-11-03] MEDS ORDERED: CELE200 PO (14:41)
[2022-11-03 15:22] VITALS: BP 127/74
--- NOTE | 2022-11-03 18:48 | NUR ---
SUMMARY- NO ACUTE EVENTS SINCE ADMISSION THIS EVENING. PT IS BEDBOUND AND AFTER PT EVAL, PT REQUESTED A LIFT ROOM. EMERGENCY PLANNER'S NOTIFIED. AAOX4. X2 ASSIST IN BED. PT STATES SHE HAS NOT WALKED FOR MONTHS. PAIN WELL CONTROLLED W/ PAIN MEDS ON EMAR.
[2022-11-03 20:08] VITALS: BP 107/53
[2022-11-04 00:24] VITALS: BP 112/74
--- NOTE | 2022-11-04 04:21 | NUR ---
SHIFT SUMMARY; NO ACUTE CHANGES OVERNIGHT. THE PT IS AXO X4 AND BEDREST AT BASELINE. THE PT IS INCONTINENT, THEREFORE A PUREWICK IS IN PLACE. THE PTS BEHAVIOR HAS BEEN GOOD OVER THE NIGHT. THE PT REQUESTED PRN PAIN MEDICATION ONCE W/ GOOD RELIEF. THE PT HAS BEEN SLEEPING IN BED FOR THE DURATION OF THE NIGHT. THE PT DENIES ANY SOB, CHEST PAIN/PRESSURE OR N/V. CURRENTLY THE PT IS SLEEPING IN BED WITH THE BED IN THE LOWEST POSITION AND THE CALL LIGHT AT BEDSIDE. FIRE SAFETY MAINTAINED T/O THE NIGHT.
[2022-11-04 05:10] VITALS: BP 103/73
[2022-11-04 05:41] LABS: Bun/Creatinine Ratio 19.1 (12.0-20.0); Calcium, Blood 7.8 mg/dL (8.5-10.1); Creatinine, Blood 0.84 mg/dL (0.40-1.00); Magnesium, Blood 1.8 mg/dL (1.6-2.4); Potassium, Blood 3.4 mmol/L (3.5-5.5)
[2022-11-04 08:07] VITALS: BP 121/88
[2022-11-04 15:44] VITALS: BP 136/85
[2022-11-04 19:16] VITALS: BP 104/73
[2022-11-04 23:49] VITALS: BP 108/65
[2022-11-05 03:54] VITALS: BP 101/76
--- NOTE | 2022-11-05 04:26 | NUR ---
SHIFT SUMMARY; NO ACUTE CHANGES OVERNIGHT. THE PT IS AXO X4 AND BEDREST. THE PT HAS BEEN SLEEPING FOR THE DURATION OF THE NIGHT. THE PT HAS A PUREWICK IN PLACE R/T TO INCONTINENCE. THE PT WAS MEDICATED FOR PAIN ONCE IN THE BEGINNING OF THE SHIFT, THE PT HAS SINCE NOT ENDORSED ANY PAIN. THE PT DENIES ANY SOB, CHEST PAIN/PRESSURE OR N/V THIS SHIFT. CURRENTLY THE PT IS SLEEPING IN BED WITH THE BED IN THE LOWEST POSITION AND THE CALL LIGHT AT BEDSIDE. FIRE SAFETY MAINTAINED T/O THE NIGHT.
[2022-11-05 07:47] VITALS: BP 119/77
[2022-11-05 16:11] VITALS: BP 119/83
--- NOTE | 2022-11-05 17:20 | NUR ---
SHIFT SUMMARY: PT A/O X 4 LIFT PT. PT PLEASANT AND COOPERATIVE. PT USING PURWICK BUT IT DID NOT CONTAIN ALL URINE FOR COUNT. PT HAD UNFORTUNATELY SATURATED HER ATTENDS AND BED THIS AFTERNOON. PT IS ADHERRING TO FLUID RESTRICTION. PT REPORTED SHE WOULD LIKE TO GO TO SNF FOR REHABILITATION AND WOULD BE WILLING TO WORK WITH PT. HOWEVER, PT ALSO REPORTED SHE IS NOT ABLE TO GO TO LOCAL SNF'S DUE TO AN "OPEN INVESTIGATION" BECAUSE "I REPORTED A CAREGIVER FOR MOLESTING ME." PT STATED THE CAREGIVER "INTENTIONALLY SCRATCHED MY VAGINAL AREA WITH HER LONG NAILS BECAUSE SHE WAS MAD I CALLED FOR HELP." PT ALSO STATED SHE CANNOT GO TO [facility] DUE TO IT BEING OUT OF AREA. NOTIFIED DR. TAYLOR OF PT DESIRE TO GO TO SNF. PT EDUCATED ON SNF VS HOME HEALTH VS PRESCHOOL DISABILITY TEACHER CARE. PT STATES SHE DOES NOT WANT PRESCHOOL DISABILITY TEACHER CARE, BUT IS NOT ABLE TO GO TO SNF DUE TO SNF REFUSAL'S. PT REPORTS SHE DOES NOT WANT TO GO HOME STATING "I WILL NOT BE ABLE TO DO WHAT I NEED TO KEEP THE FLUID FROM BUILDING UP AGAIN." PT EDUCATED ON CHF MANAGEMENT OF ILLNESS. PT NEEDS RE-INFORCEMENT WITH EDUCATION.
[2022-11-05 19:13] VITALS: BP 112/75
[2022-11-06 05:12] VITALS: BP 114/77
[2022-11-06 05:39] LABS: BASOPHILS ABSOLUTE AUTO 0.06 K/mm3 (0.00-0.23); BASOPHILS PERCENT AUTO 1 % (0-2); EOSINOPHILS ABSOLUTE AUTO 0.35 K/mm3 (0.00-0.68); EOSINOPHILS PERCENT AUTO 4 % (0-6); Hematocrit 38.6 % (33.0-51.0); IMMATURE GRAN ABSOLUTE AUTO 0.12 K/mm3 (0.00-0.10); IMMATURE GRAN PERCENT AUTO 1 % (0-1); LYMPHOCYTES ABSOLUTE AUTO 1.46 K/mm3 (0.84-5.20); LYMPHOCYTES PERCENT AUTO 16 % (21-46); MONOCYTES ABSOLUTE AUTO 0.59 K/mm3 (0.16-1.47); MONOCYTES PERCENT AUTO 7 % (4-13); Mean Corpuscular HGB 29.5 pg (26.0-34.0); Mean Corpuscular HGB Conc 33.7 g/dL (31.5-36.5); Mean Corpuscular Volume 88 fL (80-100); Mean Platelet Volume 9.6 fL (9.1-12.4); NEUTROPHILS ABSOLUTE AUTO 6.37 K/mm3 (1.96-9.15); NEUTROPHILS PERCENT AUTO 71 % (41-73); Platelet Count 348 K/mm3 (150-400); RDW Standard Deviation 44.5 fL (35.1-46.3); Red Blood Cell Count 4.41 M/mm3 (3.80-5.20); White Blood Cell Count 8.95 K/mm3 (4.00-11.30)
--- NOTE | 2022-11-06 06:15 | NUR ---
SHIFT SUMMARY PT HAD NO SIGNIFICANT EVENTS OVERNIGHT. PT REQUESTED ATIVAN AND TRAZADONE BE GIVEN WITH HER NIGHTTIME MEDS. PRN NORCO GIVEN X2 WITH POSITIVE EFFECT. PUREWICK IN PLACE. Q1H FIRE SAFETY CHECKS COMPLETED, NO IGNITION SOURCES FOUND.
[2022-11-06 06:23] LABS: Bun/Creatinine Ratio 18.7 (12.0-20.0); Calcium, Blood 8.3 mg/dL (8.5-10.1); Creatinine, Blood 0.85 mg/dL (0.40-1.00); Potassium, Blood 2.2 mmol/L (3.5-5.5)
[2022-11-06 08:03] VITALS: BP 93/61
[2022-11-06 14:38] VITALS: BP 112/64
--- NOTE | 2022-11-06 18:18 | NUR ---
SHIFT SUMMARY: SHAHNAZ IS A&0X4. VSS, NO ACUTE EVENTS THIS SHIFT. PT STATED THAT "NO-ONE IS AT HOME TODAY" AND WAS CONCERNED ABOUT BEING DISCHARGED HOME TODAY. DISCUSSED WITH PROVIDER WHO STATED NO PLANS TO DISCHARGE PT HOME TODAY. POWERGLIDE TO ANTONIO POSITIONAL, BUT PATENT WITH POSITIVE BLOOD RETURN. PT IS TOLERATING PO INTAKE WELL, DENIES ANY PAIN, AND HAS BEEN COOPERATIVE WITH CARE. SHE IS LYING IN BED WITH THE CALL LIGHT IN REACH. WCTM UNTIL REPORT IS GIVEN TO OPERATIONS BUSINESS PARTNER RN.
[2022-11-06 20:01] VITALS: BP 135/62
--- NOTE | 2022-11-07 04:45 | NUR ---
SHIFT SUMMARY 67 YR F ADMITTED ON 11/04 FOR ANASARCIA. FULL CODE. NO ACUTE CHANGES THIS SHIFT. PT IS UNHAPPY WITH FLUID RESTRICTION AND HAS BEEN VERY ARGUMENTATIVE WITH STAFF REGARDING HOW MUCH FLUID SHE CAN HAVE. AT BEGIMMIMG OF SHIFT SHE WAS SCREAMING OUT OVER AND OVER THAT SHE WANTED 7-UP. WHEN IT WAS BROUGHT TO HER BY THE INSTALLATION SUPERINTENDENT SHE WAS ANGRY THAT THERE WAS ICE IN IT AND SHE CALLED THE INSTALLATION SUPERINTENDENT AN ASSHOLE. THIS NURSE THOROUGHLY EXPLAINED THE FLUID RESTRICTION TO HER AND WHY IT IS IN PLACE, PT WAS MADE AWARE OF THE AMOUNT OF FLUID SHE HAD LEFT ON HER 24 HR RESTRICTION. SHE STATED SHE WANTED MORE 7-UP AND WAS GIVEN ANOTHER 1/2 CUP W/O ICE. SHE BECAME ANGRY THAT THERE WAS NO ICE IN IT WHEN SHE HAD JUST GOTTEN ANGRY BECAUSE THERE WAS ICE. SHE USED THE CALL LIGHT OVER AND OVER TO COMPLAIN ABOUT THE FLUID RESTRICTION AND STAFF.
[2022-11-07 05:58] VITALS: BP 139/75
[2022-11-07 07:30] VITALS: BP 125/71
[2022-11-07 08:29] LABS: Magnesium, Blood 1.7 mg/dL (1.6-2.4)
[2022-11-07 08:33] LABS: Bun/Creatinine Ratio 21.7 (12.0-20.0); Calcium, Blood 8.5 mg/dL (8.5-10.1); Creatinine, Blood 0.78 mg/dL (0.40-1.00); Potassium, Blood 2.3 mmol/L (3.5-5.5)
[2022-11-07 16:21] VITALS: BP 108/80
--- NOTE | 2022-11-07 17:20 | NUR ---
SHIFT SUMMARY Pt remains A&Ox3 this shift. VSS. Denies pain. Resp even nonlabored on RA. Tolerating diet. Fluid restriction increased. Purewick intact with yellow output. Repositioned frequently. No acute distress noted. Will continue to monitor.
[2022-11-07 19:44] VITALS: BP 120/92
[2022-11-08 02:47] VITALS: BP 127/85
--- NOTE | 2022-11-08 04:05 | NUR ---
shift summary 67 yr f admitted on 11/04/22 for anasarcia. full code. no acute changes this shift. pt behavior has been much better this shift than last night. she is pleased that her fluid allowance has been increased. she has used the call light appropriately this shift and has not yelled out. vss and medicated for pain at bedtime. bed in low position and call light in reach.
[2022-11-08 05:58] LABS: Bun/Creatinine Ratio 26.9 (12.0-20.0); Calcium, Blood 9.3 mg/dL (8.5-10.1); Creatinine, Blood 0.74 mg/dL (0.40-1.00); Potassium, Blood 2.4 mmol/L (3.5-5.5)
[2022-11-08 07:34] VITALS: BP 125/90
[2022-11-08 10:43] VITALS: BP 126/84
--- NOTE | 2022-11-08 11:02 | NUR ---
CARPENTER/LABOR BROUGHT A RECLINER AND [facility]CY LIFT TO PATIENTS ROOM. STAFF OFFERED TO GET PT OOB AND UP TO THE RECLINER AT 1100 AND THE PATIENT REFUSED TO GET OOB. THIS IS AFTER THE PATIENT WAS COMPLAINING TO THE RN THAT SHE HAS ASKED TO GET UP TO A RECLINER SINCE HER ADMISSION AND WANTS TO KNOW WHY THIS HASNT HAPPENED.
[2022-11-08 16:00] VITALS: BP 102/68
--- NOTE | 2022-11-08 18:15 | NUR ---
PATIENT IS ALERT AND ORIENTED AND COOPERATIVE WITH CARE. PATIENT IS COMPLIANT WITH HER FLUID RESTRICTION. PUREWICK IN PLACE THROUGHOUT THE DAY TO MONITOR OUTPUT. LIFT PATIENT. SHE REFUSED TO GET OOB TO THE RECLINER TODAY. C/O HIP AND LEG PAIN, MEDICATED PER EMAR. VSS. ON RA. WILL CONTINUE TO MONITOR
[2022-11-08 19:20] VITALS: BP 133/86
[2022-11-09 04:58] VITALS: BP 132/85
[2022-11-09 06:00] LABS: Bun/Creatinine Ratio 29.6 (12.0-20.0); Calcium, Blood 9.1 mg/dL (8.5-10.1); Creatinine, Blood 0.74 mg/dL (0.40-1.00); Potassium, Blood 2.5 mmol/L (3.5-5.5)
--- NOTE | 2022-11-09 06:09 | NUR ---
SHIFT SUMMARY PT REFUSED REPOSITIONING EARLY IN THE SHIFT. BED BATH WAS GIVEN OVERNIGHT LATER, HOWEVER. AM POTASSIUM INCREASED TO 2.5. PT IS 2P MAX REPOSITION. STIFF IN BED AND MAKES ROLLING DIFFICULT. BLE ELEVATED ON PILLOWS. NO OTHER ACUTE CHANGES IN ASSESSMENT AT THIS TIME. VS REVIEWED. CALL LIGHT IN REACH. PT WATCHING TV IN BED. DENIES OTHER NEEDS AT THIS TIME.
[2022-11-09 08:23] VITALS: BP 141/82
--- NOTE | 2022-11-09 14:06 | NUR ---
Brief supportive visit this afternoon. Pt resting in bed and is A&OX4. Brief review of plan of care. Engaged in therapeutic discussion regarding code status wishes. Educated on life sustaining treatments including risks and implications to CPR/Intubation. Offered therapeutic listening and answered questions. Pt reports wanting to think about her wishes regarding code status. Pt agreeable to remain Full Code for now. Spoke with PT Kody and discussed case. Palliative Care will remain available
[2022-11-09 15:46] VITALS: BP 102/76
--- NOTE | 2022-11-09 16:32 | NUR ---
SHIFT SUMMARY PT AOX4, ON BEDREST. C/O PAIN AND ANXIETY THIS SHIFT, MEDICATED PER THE EMAR. SHE HAS BEEN SLEEPING OFF AND ON MOST OF THE SHIFT. PT GOT HER HAIR WASHED THIS SHIFT AND WAS PLEASED. POTASSIUM REPLACED PER THE EMAR. CALL LIGHT WITHIN REACH, BED IN THE LOWEST POSITION. WILL REPORT TO ONCOMING NURSE.
[2022-11-09 19:18] VITALS: BP 128/80
--- NOTE | 2022-11-09 20:17 | NUR ---
PATIENT TRANSFERRED TO ROOM 364 IN ORDER TO HAVE A CEILING LIFT. BELONGINGS MOVED WITH PATIENT. REPORT GIVEN TO SALO LAINEZ.
[2022-11-10 02:51] VITALS: BP 129/82
--- NOTE | 2022-11-10 06:46 | NUR ---
Shift Summary Pt transferred to this room for lift access, she is chair fast and unable to walk. C/O hip and back pain, medicated per emar. Purewick in place draining well. Q2 turns. Slept on and off t/o shift. No c/o of anxiety. AOx4, cooperative with care.
[2022-11-10 07:42] VITALS: BP 113/73
[2022-11-10 07:57] LABS: Albumin, Blood 3.2 g/dL (3.4-5.0); Anion Gap 7 mmol/L (6-16); Blood Urea Nitrogen 23 mg/dL (8-24); Bun/Creatinine Ratio 33.9 (12.0-20.0); CO2, Blood 40 mmol/L (21-32); Calcium, Blood 8.9 mg/dL (8.5-10.1); Chloride, Blood 85 mmol/L (98-108); Creatinine, Blood 0.68 mg/dL (0.40-1.00); Glomerular Filtration Rate 97 (60-); Glucose, Blood 193 mg/dL (70-99); Magnesium, Blood 1.7 mg/dL (1.6-2.4); Phosphorus, Blood 3.2 mg/dL (2.5-4.9); Potassium, Blood 2.8 mmol/L (3.5-5.5); Sodium, Blood 132 mmol/L (136-145)
[2022-11-10 08:25] LABS: Bun/Creatinine Ratio 34.2 (12.0-20.0); Calcium, Blood 8.9 mg/dL (8.5-10.1); Creatinine, Blood 0.67 mg/dL (0.40-1.00); Potassium, Blood 2.8 mmol/L (3.5-5.5)
[2022-11-10 15:33] VITALS: BP 138/74
--- NOTE | 2022-11-10 18:31 | NUR ---
SHIFT SUMMARY NO ACUTE EVENTS DURING SHIFT. PATIENT MEDICATED FOR PAIN PER EMAR. POTASSIUM SUPPLEMENTS GIVEN TID. BED IN LOW POSITION, CALL LIGHT IN REACH. PATIENT CALLS APPROPRIATELY.
[2022-11-10 19:12] VITALS: BP 116/70
[2022-11-10 21:34] VITALS: BP 131/92
--- NOTE | 2022-11-11 01:44 | NUR ---
NURSE NOTE RECEIVED FIRE IGNITION TEACHING EARLIER. PAIN MED AND SLEEP MEDS ADMIN - SEE MAR FOR DETAILS. CALL LIGHT IN REACH. WILL CONTINUE TO MONITOR
[2022-11-11 03:35] VITALS: BP 124/76
[2022-11-11 05:08] LABS: Bun/Creatinine Ratio 35.6 (12.0-20.0); Calcium, Blood 8.7 mg/dL (8.5-10.1); Creatinine, Blood 0.62 mg/dL (0.40-1.00); Potassium, Blood 2.9 mmol/L (3.5-5.5)
--- NOTE | 2022-11-11 06:07 | NUR ---
NIHT SHIFT SUMMARY VSS. AWAKE AT INTERVALS WITH C/O PAIN OF LEG. FLUID RESTRICTION CONTINUES, PT CONTINUES TO REQUEST PO FLUIDS EVEN WHEN CAUTIONED RE SAID RESTRICTION. PUREWICK IN USE, BM X 2. REPOSITIONED INTERMITTENTLY. SWELLING OF EXTREMITIES CONTINUES. CALL LIGHT IN REACH. WILL CONTINUE TO MONITOR
[2022-11-11 07:47] VITALS: BP 131/70
[2022-11-11 15:04] VITALS: BP 138/77
--- NOTE | 2022-11-11 16:42 | NUR ---
SHIFT SUMMARY THIS PT WAS A NEW ADMIT LAST NIGHT. HE IS A VERY PLEASANT AND A&OX4. HE WAS VERY SOB THIS MORNING DUE TO A HACKING COUGH. RT WAS IN THE ROOM DURING SHIFT CHANGE AND HE WAS SWITCHING THE PT OFF OF THE CPAP ONTO THE NC. I BROUGHT IN NADERNOEJOE MICHAEL, AND OBTAINED AN ORDER FOR CODEINE. HE STILL HAS A COUGH BUT IT IS NOT PERSISTENT. THE PT HAS BEEN ON 2L NC WITH HIS SP02>93%. PT IS ON TELEMETRY AND HAS BEEN RUNNING AFIB 100 S-130 S. HE GETS TACHY WHEN AMBULATING OR COUGHING. PT HAS BEEN HYPERTENSIVE AND DR. CHOWDHURY WAS MADE AWARE. SHE STATED SHE WOULD LOOK AT HIS MEDICATIONS ON TWO DIFFERENT ENCOUNTERS TODAY. PT DENIES ANGINA BUT DOES FEEL PRESSURE WHEN HE IS COUGHING. HE HAS TESTED NEGATIVE FOR FLU/RSV/COVID. PT S HAS BEEN UPDATED ON CARE AND HAS BEEN PRESENT AT THE BEDSIDE. FIRE IGNITION RISK HAS BEEN ASSESSED AND EDUCATION HAS BEEN PROVIDED TO BOTH THE PT AND THE .
--- NOTE | 2022-11-11 16:54 | NUR ---
SHIFT SUMMARY PT IS A&OX4, BUT HAS BEEN SNAPPY TODAY. BOUNDARIES WERE SET EARLY IN THE SHIFT BECAUSE THE PT WAS YELLING AT STAFF ABOUT MEDICATIONS. WHEN HE CALL LIGHT IS NOT ANSWERED RIGHT AWAY SHE WILL YELL OUT IN THE CATALAN. PT IS A Q2 HR TURN, HAD A BEDBATH, AND HAS WORKED WITH PHYSICAL THERAPY. SHE HAS A PURWICK SET UP WHEN SHE IS IN BED DUE TO INCONTINENCE,, IT HAS BEEN CHANGED THIS SHIFT, BED BATH COMPLETE. PT IS NOT ON TELEMETRY OR OXYGEN. NO ACUTE EVENTS AT THIS TIME. FIRE IGNITION RISK ASSESSED AND EDUCATION HAS BEEN PROVIDED.
[2022-11-11 19:06] VITALS: BP 128/81
--- NOTE | 2022-11-12 00:18 | NUR ---
NURSE NOTE AWAKE AT INTERVALS, CALLING OUT, USING CALL LIGHT MULTIPLE TIMES. RECEIVED ANALGESICS ORDERED AND SLEEP MEDS - SEE MAR FOR DETAILS. DARIELA CHANGED OUT. RECEIVED FIRE IGNITION TEACHING EARLIER. CALL LIGHT IN REACH
--- NOTE | 2022-11-12 03:33 | NUR ---
GLASS BELT SANDER SUMMARY VSS. ALERT AND ORIENTED. CONTINUES TO PUSH LIMITS OF FLUID RESTRICTIONS, NURSE CONTINUES TO REVIEW PT CONDITION/ANASARCA, ETC AND CORRELATION WITH FLUID INTAKE. ENCOURAGED TO SPEAK WITH MD IN THE AM. MEDS FOR PAIN, ANXIETY AND INSOMNIA GIVEN EARLIER - SEE MAR FOR DETAILS. HAS BEEN RESTING QUIETLY WITH INTERMITTENT EPISODES OF WAKEFULNESS - USUALLY WITH REQUESTS FOR PO FLUIDS. PUREWICK IN USE. REPOSITIONED INTERMITTENTLY FOR COMFORT AND SKIN MAINTENANCE. CALL LIGHT IN REACH. WILL CONTINUE TOMONITOR.
[2022-11-12 04:35] VITALS: BP 116/70
[2022-11-12 05:35] LABS: Calcium, Blood 8.8 mg/dL (8.5-10.1); Creatinine, Blood 0.7 mg/dL (0.40-1.00); Magnesium, Blood 1.7 mg/dL (1.6-2.4); Potassium, Blood 3.2 mmol/L (3.5-5.5)
[2022-11-12 07:27] VITALS: BP 118/81
[2022-11-12] MEDS ORDERED: FURO20 PO (12:33)
[2022-11-12] MEDS ORDERED: HYDR1TAB94 PO (12:40)
[2022-11-12] MEDS ORDERED: REXULTI1 MG PO (12:41)
[2022-11-12] MEDS ORDERED: SPIR50 PO (12:42)
[2022-11-12] MEDS ORDERED: GABA300 PO (12:42)
--- NOTE | 2022-11-12 15:56 | NUR ---
PT DISCHARGED HOME. DC INSTRUCTIONS AND EDUCATION MATERIAL EXPLAINED TO PT. IV DC'D. PT TOLERATED WELL. TWO HOME MEDICATIONS FROM PHARMACY COLLECTED AND SENT HOME WITH PT WELL ONE HOME MEDICATION IN LOCKED DRAWER. ALL BELONGINGS SENT HOME WITH PT. PT TAKEN VIA [facility] BY [facility].
== END 2022-11-12 14:58 | disposition home or self-care (01) | DRG 300 ==
LOC: ER 10:34 → MEDS 10:35 → ENPENDDIS 11-12 10:30 → MEDS 11-12 14:58
PROVIDERS: Emergency Medicine; Internal Medicine; ADMIT Internal Medicine
DX: I87.2 Venous insufficiency (chronic) (peripheral) (principal); I48.20 Chronic atrial fibrillation, unspecified; I50.32 Chronic diastolic (congestive) heart failure; Z68.44 Body mass index [BMI] 60.0-69.9, adult; E87.6 Hypokalemia; E66.9 Obesity, unspecified; E03.9 Hypothyroidism, unspecified; G47.33 Obstructive sleep apnea (adult) (pediatric); J44.9 Chronic obstructive pulmonary disease, unspecified; M79.2 Neuralgia and neuritis, unspecified; Z79.899 Other long term (current) drug therapy; Z88.5 Allergy status to narcotic agent; Z74.09 Other reduced mobility; Z79.01 Long term (current) use of anticoagulants; Z87.891 Personal history of nicotine dependence; Z88.0 Allergy status to penicillin; Z88.8 Allergy status to other drugs, medicaments and biological substances
CPT/HCPCS: 36415; 71045; 80048; 80053; 80069; 80162; 82947; 83735; 83880; 84132; 84484; 85025; 93005; 93010; 96374; 96376; 97110; 97162; 99285-25; A9270; C9113; G0378; J1940

== ENCOUNTER → 2022-12-22 | Outpatient (CLI) | payer OTHER ==
[~2022-12-22] MED LIST changes: +CELE200 PO; +FURO20 PO; +HYDR1TAB94 PO; +SPIR50 PO
== END ==
LOC: LAB 12:05 → LAB SHORT 12:05
DX: I50.32 Chronic diastolic (congestive) heart failure (principal); Z87.440 Personal history of urinary (tract) infections
CPT/HCPCS: 87086

== ENCOUNTER → 2023-01-05 | Outpatient (CLI) | payer OTHER ==
[2023-01-05 11:45] LABS: Appearance, Urine Clear (Clear); Bilirubin, Urine Neg (Neg); Blood, Urine 3+ (Neg); Color, Urine Yellow (P-Yellow); Glucose Qualitative, Urine Neg (Neg); Ketones, Urine Neg (Neg); Leukocyte Esterase, Urine Neg (Neg); Nitrite, Urine Neg (Neg); Protein, Urine 1+ (Neg); Specific Gravity, Urine 1.025 (1.003-1.022); Urobilinogen, Urine NORM (Normal)
[2023-01-05 12:06] LABS: Bacteria Few /hpf; Squamous Epithelial Cells Rare /hpf (Few)
== END ==
LOC: LAB 09:45 → LAB SHORT 09:45
PROVIDERS: Family Medicine
DX: N39.0 Urinary tract infection, site not specified (principal)
CPT/HCPCS: 81001

== ENCOUNTER 2023-02-23 21:46 | Inpatient (IN) | payer OTHER ==
[~2023-02-23] VITALS: Ht 157.5 cm; Wt 135.5 kg
[2023-02-23 22:13] LABS: BASOPHILS ABSOLUTE AUTO 0.08 K/mm3 (0.00-0.23); BASOPHILS PERCENT AUTO 0 % (0-2); EOSINOPHILS ABSOLUTE AUTO 0.01 K/mm3 (0.00-0.68); EOSINOPHILS PERCENT AUTO 0 % (0-6); Hematocrit 43.1 % (33.0-51.0); Hemoglobin 14.6 g/dL (11.5-16.0); IMMATURE GRAN ABSOLUTE AUTO 0.26 K/mm3 (0.00-0.10); IMMATURE GRAN PERCENT AUTO 1 % (0-1); LYMPHOCYTES ABSOLUTE AUTO 1.12 K/mm3 (0.84-5.20); LYMPHOCYTES PERCENT AUTO 5 % (21-46); MONOCYTES ABSOLUTE AUTO 0.74 K/mm3 (0.16-1.47); MONOCYTES PERCENT AUTO 4 % (4-13); Mean Corpuscular HGB 30.1 pg (26.0-34.0); Mean Corpuscular HGB Conc 33.9 g/dL (31.5-36.5); Mean Corpuscular Volume 89 fL (80-100); Mean Platelet Volume 9.9 fL (9.1-12.4); NEUTROPHILS ABSOLUTE AUTO 19.07 K/mm3 (1.96-9.15); NEUTROPHILS PERCENT AUTO 90 % (41-73); Platelet Count 450 K/mm3 (150-400); RDW Coefficient Variation 14.3 % (11.7-14.2); RDW Standard Deviation 46.2 fL (35.1-46.3); Red Blood Cell Count 4.85 M/mm3 (3.80-5.20); White Blood Cell Count 21.28 K/mm3 (4.00-11.30)
[2023-02-23 22:31] LABS: Albumin/Globulin Ratio 0.6 (0.8-1.8); Bilirubin, Total 0.7 mg/dL (0.1-1.0); Bun/Creatinine Ratio 20.6 (12.0-20.0); Calcium, Blood 8.5 mg/dL (8.5-10.1); Creatinine, Blood 0.58 mg/dL (0.40-1.00); Potassium, Blood 4.1 mmol/L (3.5-5.5)
[2023-02-24 01:22] LABS: Influenza A, PCR NEGATIVE (NEGATIVE); Influenza B, PCR NEGATIVE (NEGATIVE); Resp Syncytial Virus, PCR NEGATIVE (NEGATIVE); SARS-Cov-2 (COVID-19) PCR, MMC NEGATIVE (NEGATIVE)
[2023-02-24 01:34] LABS: Magnesium, Blood 1.9 mg/dL (1.6-2.4); Phosphorus, Blood 2.9 mg/dL (2.5-4.9)
[2023-02-24 01:37] LABS: Source, Urine Straight Cath
[2023-02-24 01:41] LABS: Bilirubin, Urine Neg (Neg); Blood, Urine 4+ (Neg); Glucose Qualitative, Urine 1+ (Neg); Ketones, Urine 1+ (Neg); Leukocyte Esterase, Urine Neg (Neg); Nitrite, Urine Neg (Neg); Protein, Urine 2+ (Neg); Urobilinogen, Urine NORM (Normal)
[2023-02-24 01:55] LABS: Appearance, Urine Hazy (Clear); Color, Urine Yellow (P-Yellow)
[2023-02-24 01:57] LABS: Amorphous Light (0-Heavy); Bacteria Few /hpf; Squamous Epithelial Cells Mod /hpf (Few); White Blood Cells, Urine 0-2 /hpf (0-5)
[2023-02-24 04:18] LABS: Digoxin (Lanoxin) 0.49 ug/mL (0.80-2.00)
--- NOTE | 2023-02-24 05:39 | NUR ---
ADMIT NOTE PT ADMITTED TO UNIT AT 0535. TRANSPORTED BY ED [facility] AND SLID OVER TO HOSPITAL BED. PT BELONGINGS AT BEDSIDE. PUREWICK IN PLACE. EDUCATED ON FIRE SAFETY AND PREVENTION. ORIENTED TO CALL LIGHT AND ROOM. BED KEPT IN LOWEST POSITION IWTH CALL LIGHT IN REACH. RECEIVED REPORT FROM SAULO LEONG.
--- NOTE | 2023-02-24 06:11 | NUR ---
PT REFUSAL PT REFUSING TO PARTICIPATE IN ASSESSMENT OR SKIN ASSESSMSNET AT THIS TIME. STATES SHE HAS BEEN IN THE ED ALL NIGHT AND UNABLE TO SLEEP. TOO TIRED TO ROLL OVER AND STATES SHE HAS WOUNDS TO HER BACK SIDE. CHARGE NURSE AWARE. WILL PASS ON TO DAY SHIFT TO ATTEMPT TO TRY AND ASSESS AGAIN.
[2023-02-24 06:16] VITALS: BP 129/66
[2023-02-24 07:28] VITALS: BP 152/110
[2023-02-24 07:33] LABS: International Normalized Ratio 1.07; Prothrombin Time Results 11.2 Sec (9.7-11.5)
--- NOTE | 2023-02-24 13:14 | NUR ---
PATIENT CONTINUES TO SLEEP, NO GRIMACES OR S/S OF DISTRESS, CALL LIGHT WITH IN REACH, CALL OUT TO DR PIMENTEL FOR SURGERY CONSULT AND ADDRESS NPO STATUS
[2023-02-24 16:10] VITALS: BP 108/83
--- NOTE | 2023-02-24 17:38 | NUR ---
ALERT AND OREINTED, SLEEPY, DR HERNANDEZ AND DR RAMESH ROUNDED ON PATIENT, HIDA SCAN IN AM AT 0730, NPO AT MIDNIGHT STRICT NO SIPS OR CHIPS, MEDICATED FOR HEAD ACHE. HEPARIN GTT DISCONTINUED, PATIENT RELUCTANT TO CARE, REFUSES AT TIMES. USES CALL LIGHT, REFUSES TO BE REPOSITIONED, WILL RELAY TO PM RN
[2023-02-24 19:59] VITALS: BP 140/114
[2023-02-25] VITALS (17 sets, daily range): BP systolic 95–150; BP diastolic 24–105
--- NOTE | 2023-02-25 03:37 | NUR ---
SHIFT SUMMARY PT ORIENTED, VERY SLEEPY THIS SHIFT. PT SCHEDULED FOR HIDA SCAN THIS MORNING, STRICT NPO, NO SIPS OR CHIPS MAINTAINED AFTER MIDNIGHT. TELEMETRY: AFIB 110-160S. CALLED DUE TO EPIDOSE OF REPEATED HIGH HR. SEE EMAR FOR ORDERS. CBG AT HS 215. PT COMPLAINS OF HEADACHE AND WAS MEDICATED PER EMAR WITH RELIEF. ABX GIVEN. PT IS RELUCTANT TO CARE AND AT TIMES REFUSES CARE. REFUSED TO ROLL OVER SO I COULD ASSESS HER BACKSIDE. PUREWICK IN PLACE DRAING TEA COLORED URINE. BED KEPT IN LOWEST POSITION WITH CALL LIGHT WITHIN REACH. WILL CONTINUE TO MONITOR UNTIL END OF SHIFT.
[2023-02-25 06:16] LABS: BASOPHILS ABSOLUTE AUTO 0.11 K/mm3 (0.00-0.23); BASOPHILS PERCENT AUTO 1 % (0-2); EOSINOPHILS ABSOLUTE AUTO 0.18 K/mm3 (0.00-0.68); EOSINOPHILS PERCENT AUTO 1 % (0-6); Hemoglobin 13.2 g/dL (11.5-16.0); IMMATURE GRAN ABSOLUTE AUTO 0.24 K/mm3 (0.00-0.10); IMMATURE GRAN PERCENT AUTO 1 % (0-1); LYMPHOCYTES ABSOLUTE AUTO 1.51 K/mm3 (0.84-5.20); LYMPHOCYTES PERCENT AUTO 8 % (21-46); MONOCYTES ABSOLUTE AUTO 1.53 K/mm3 (0.16-1.47); MONOCYTES PERCENT AUTO 8 % (4-13); Mean Corpuscular HGB 30.5 pg (26.0-34.0); Mean Corpuscular HGB Conc 33.8 g/dL (31.5-36.5); Mean Corpuscular Volume 90 fL (80-100); Mean Platelet Volume 9.9 fL (9.1-12.4); NEUTROPHILS PERCENT AUTO 80 % (41-73); Platelet Count 370 K/mm3 (150-400); RDW Coefficient Variation 14.4 % (11.7-14.2); RDW Standard Deviation 47.3 fL (35.1-46.3); Red Blood Cell Count 4.33 M/mm3 (3.80-5.20); White Blood Cell Count 18.27 K/mm3 (4.00-11.30)
[2023-02-25 06:45] LABS: Bun/Creatinine Ratio 15.6 (12.0-20.0); Calcium, Blood 7.9 mg/dL (8.5-10.1); Creatinine, Blood 0.64 mg/dL (0.40-1.00); Potassium, Blood 3.6 mmol/L (3.5-5.5)
--- NOTE | 2023-02-25 11:51 | NUR ---
Pt to OR for lap anna with OR staff and 0900 Rocephin to be infused. IV Vanco still infusing.
--- NOTE | 2023-02-25 12:52 | NUR ---
DAY SURGERY NOTE PT A&OX4, BREATHING RA, BEDBOUND. UPON TRANSFERING TO [facility] MULTIPLE OPEN SORES AND REDNESS NOTED ON BACK/SACRUM/BUTTOCK. PT REQUIRED THREE RN'S FOR TRNASFER 2/2 MORBID OBESITY. 20G IV TO R UPPER ARM PATENT, VANCOMYCIN COMPLETED AND ROCEPHIN ADMINISTERED IN DSU. RING TO L RING FINGER REMOVED BY DR BEVERLY AND SENT TO PACU. TELE UNIT SENT TO PACU AFTER PT WAS BROUGHT TO OR. Patient confirms NPO status and agrees with scheduled surgery. Pre-Op teaching done. Pt verbalizes understanding.
--- NOTE | 2023-02-25 16:09 | NUR ---
Pt to PCU post op. Report called to Graciela LEONG PCU
[2023-02-25 16:18] LABS: BASOPHILS ABSOLUTE AUTO 0.15 K/mm3 (0.00-0.23); BASOPHILS PERCENT AUTO 1 % (0-2); EOSINOPHILS ABSOLUTE AUTO 0.09 K/mm3 (0.00-0.68); EOSINOPHILS PERCENT AUTO 0 % (0-6); Hematocrit 33.9 % (33.0-51.0); Hemoglobin 11.5 g/dL (11.5-16.0); IMMATURE GRAN ABSOLUTE AUTO 0.74 K/mm3 (0.00-0.10); IMMATURE GRAN PERCENT AUTO 3 % (0-1); LYMPHOCYTES PERCENT AUTO 4 % (21-46); MONOCYTES ABSOLUTE AUTO 0.99 K/mm3 (0.16-1.47); MONOCYTES PERCENT AUTO 4 % (4-13); Mean Corpuscular HGB 30.8 pg (26.0-34.0); Mean Corpuscular HGB Conc 33.9 g/dL (31.5-36.5); Mean Corpuscular Volume 91 fL (80-100); Mean Platelet Volume 10.1 fL (9.1-12.4); NEUTROPHILS ABSOLUTE AUTO 21.38 K/mm3 (1.96-9.15); NEUTROPHILS PERCENT AUTO 88 % (41-73); Platelet Count 372 K/mm3 (150-400); RDW Coefficient Variation 14.4 % (11.7-14.2); RDW Standard Deviation 47.4 fL (35.1-46.3); Red Blood Cell Count 3.73 M/mm3 (3.80-5.20); White Blood Cell Count 24.25 K/mm3 (4.00-11.30)
[2023-02-25 16:35] LABS: International Normalized Ratio 1.17; Prothrombin Time Results 12.2 Sec (9.7-11.5)
[2023-02-25 16:52] LABS: Albumin, Blood 2.3 g/dL (3.4-5.0); Albumin/Globulin Ratio 0.6 (0.8-1.8); Bilirubin, Total 1.2 mg/dL (0.1-1.0); Bun/Creatinine Ratio 16.8 (12.0-20.0); Calcium, Blood 7.8 mg/dL (8.5-10.1); Creatinine, Blood 0.66 mg/dL (0.40-1.00); Globulin, Blood 3.7 g/dL (2.2-4.0); Potassium, Blood 4.1 mmol/L (3.5-5.5)
--- NOTE | 2023-02-25 18:47 | NUR ---
SHIFT SUMMARY PT TRANSFERRED POSTOP ARRIVED APPROX, BP SOFT AND HR ELEVATED/ TREATED PER EMAR - CURRENTLY TELE AFIB 110 BPM. OPEN BIANCA RUPERT WNL, JOSE 110 MLS SANG OUT, PAIN TREATED WITH NORCO 10 MG, PUREWICK IN PLACE, INCONTINENT VOID, ENTIRE BED CHANGE AND REPOSITIONING/ROLL OF PT REVEALED A 2 INCH SKIN ABRASION ON LEFT BUTTOCK/MEPILEX APPLIED, OTHERWISE SKIN IS DRY & EDEMATOUS. WILL REPORT TO ONCOMING NOC RN.
[2023-02-26] VITALS (17 sets, daily range): BP systolic 73–110; BP diastolic 45–76
[2023-02-26 05:15] LABS: BASOPHILS ABSOLUTE AUTO 0.05 K/mm3 (0.00-0.23); BASOPHILS PERCENT AUTO 0 % (0-2); EOSINOPHILS ABSOLUTE AUTO 0.01 K/mm3 (0.00-0.68); EOSINOPHILS PERCENT AUTO 0 % (0-6); Hematocrit 29.1 % (33.0-51.0); Hemoglobin 9.7 g/dL (11.5-16.0); IMMATURE GRAN ABSOLUTE AUTO 0.25 K/mm3 (0.00-0.10); IMMATURE GRAN PERCENT AUTO 2 % (0-1); LYMPHOCYTES ABSOLUTE AUTO 0.97 K/mm3 (0.84-5.20); LYMPHOCYTES PERCENT AUTO 6 % (21-46); MONOCYTES PERCENT AUTO 8 % (4-13); Mean Corpuscular HGB 30.4 pg (26.0-34.0); Mean Corpuscular HGB Conc 33.3 g/dL (31.5-36.5); Mean Corpuscular Volume 91 fL (80-100); Mean Platelet Volume 10.1 fL (9.1-12.4); NEUTROPHILS ABSOLUTE AUTO 13.13 K/mm3 (1.96-9.15); NEUTROPHILS PERCENT AUTO 84 % (41-73); Platelet Count 334 K/mm3 (150-400); RDW Coefficient Variation 13.9 % (11.7-14.2); RDW Standard Deviation 46.3 fL (35.1-46.3); Red Blood Cell Count 3.19 M/mm3 (3.80-5.20); White Blood Cell Count 15.71 K/mm3 (4.00-11.30)
[2023-02-26 06:10] LABS: Albumin, Blood 2.1 g/dL (3.4-5.0); Albumin/Globulin Ratio 0.6 (0.8-1.8); Bilirubin, Total 0.7 mg/dL (0.1-1.0); Bun/Creatinine Ratio 22.7 (12.0-20.0); Calcium, Blood 7.3 mg/dL (8.5-10.1); Creatinine, Blood 0.62 mg/dL (0.40-1.00); Globulin, Blood 3.7 g/dL (2.2-4.0); Potassium, Blood 3.8 mmol/L (3.5-5.5); Total Protein, Blood 5.8 g/dL (6.4-8.2)
--- NOTE | 2023-02-26 06:38 | NUR ---
SHIFT SUMMARY PT IS HERE WITH SEPSIS SECONDARY TO CHOLECYSTITIS, WITH THE PT BEING POD#1 FROM A OPEN CHOLECYSTECTOMY. PT'S BP'S HAVE BEEN LOW/SOFT ALL SHIFT. HR HAS BEEN READING A-FIB, RANGING FROM THE 110'S-140'S. PT WAS RESISTANT TO CARE FROM STAFF EARLIER THIS AM, YELLING FOR THIS RN WHILE LAB WAS TRYING TO DRAW BLOOD FOR HER AM LABS. THIS RN EDUCATED THE PT ABOUT NOT YELLING, BUT TO INSTEAD DISCUSS WHAT HER NEEDS ARE. PT DEFIANT WITH EDUCATION AT THAT TIME, BUT IT SHOULD BE NOTED THAT THIS RN AND DRUG PURCHASER RICKEY WERE ABLE TO PROVIDE PETEY-CARE FOR THE PT AROUND 0610 THIS MORNING. JOSE BULB DRAINING WELL WITH SANGUINEOUS OUTPUT (180 ML). INCISIONS ARE C/D/I AND THE RUPERT IS WORKING PROPERLY. PALLIATIVE CONSULT PUT IN FOR PT D/T HER RESISTANCE TO STAFF PROVIDING BASIC CARE. BED IS IN LOWEST POSITION, CALL LIGHT IS WITHIN REACH.
--- NOTE | 2023-02-26 07:38 | NUR ---
I CALLED DR. CAPRI BARRIOS HYPOTENTION AND TACHYCARIDA OVER NIGHT CURRENT BP 105/63 HR:130'S I TALKED TO HER ABOUT THE PT HAVING TO GET A 500CC BOLUS OVERNIGHT DUE TO SOFT BP'S AND HAVING TACHYCARDIA. I WANT TO GET THE PT'S HR UNDER CONTROL SINCE HER HR IS 110'S-140'S AND WOULD LIKE BP SUPPORT. I RECOMMENDED MIDODRINE. DR FAROOQ ASKED ABOUT HOLDING SPIRONOLACTONE AND I DID LET HER KNOW THE PT DID HAVE 2-3+ EDEMA IN ALL EXTREMITIES. SHE SAID SHE WAS GOING TO LOOK UP A COUPLE THINGS AND PUT IN ORDERS.
[2023-02-26] MEDS ORDERED: ALPRAZOLAM0.5 M1 PO (12:51)
--- NOTE | 2023-02-26 13:00 | NUR ---
I SPOKE W/ DR. FAROOQ ABOUT HR CONTROL, ORDERING HOME PRN ANXIETY MEDICATIONS, AND PT'S CONCERN ABOUT SPIRONOLACTONE THE PT'S HR HAS BEEN 110'S-140'S THIS SHIFT. WE STARTED HER ON 2.5MG MIDODRINE FOR BP SUPPORT. AT ABOUT 1400 IF HER SBP >110, DBP >65, AND IF HER HR COUNTINUES TO TACH UP I WILL GIVE A 5MG LOPRESSOR PUSH. ALSO, I TALKED TO DR. FAROOQ THAT THE PT REPORTED THAT IN THE PAST, SPIRONOLACTONE HAS NOT BEEN A SUCCESSFUL DIURETIC. WE DID BLADDER SCAN THE PT AT 1030 AND THERE WAS 290MLS IN HER BLADDER AND SHE HAS NO NEED TO VOID. I ALSO REQUESTED WE ORDER ALPRAZOLAM 0.5MG FOR THE PT'S ANXIETY BECAUSE THIS IS WHAT SHE TAKES AT HOME AND IS REQUESTING IT. DR. FAROOQ SAID SHE WILL LOOK INTO IT.
--- NOTE | 2023-02-26 18:21 | NUR ---
SHIFT SUMMARY PT IS A&OX4; CAN MAKE HER NEEDS KNOWN; LIFT TX; HAS A PURWICK SET UP TO SUCTION; Q2 TURN; HAD A BEDBATH W/ LINEN CHANGE; AND HAD NO ACUTE EVENTS. ON TELE SHE HAS BEEN AFIB 110'S-140'S, AND BP HAS BEEN SOFT. SEE PREVIOSU NOTE FOR CONVERSATIONS WITH THE DR. PT IS RECIEIVING MIDODRINE FOR SUPPORTIVE CARE. A LOPRESSOR PUSH WAS NOT GIVEN BECAUSE SBP <110. THE PT WAS TITRAITED TO RA WHICH IS HER BASELINE. PT HAS DENIED ANY ANGINA, CHEST PAIN, OR SOB. THE PT HAD A BIANCA ON 02/25 AND IS POST OP DAY 1. SHE HAS A DIAGONAL RUPERT DRESSING THE IS C/D/I, IN HER RUQ THERE IS A JOSE DRAIN THE HAS LET OUT 110CC'S OF SEROSANGUINEOUS FLUID. DRESSING C/D/I. THERE IS A DRESSING OVER HER UMBILICAL THAT IS C/D/I. PT HAS HAD SOME MILD NAUSEA THIS EVENING AND WAS MEDICATED PER EMAR. SEE NOTES FOR ANY UPDATES.
[2023-02-26 23:19] LABS: Vancomycin, Trough 12.5 ug/mL (5.0-10.0)
[2023-02-26 23:26] LABS: Albumin/Globulin Ratio 0.5 (0.8-1.8); Bilirubin, Total 0.3 mg/dL (0.1-1.0); Bun/Creatinine Ratio 16.4 (12.0-20.0); Calcium, Blood 7.2 mg/dL (8.5-10.1); Creatinine, Blood 0.61 mg/dL (0.40-1.00); Globulin, Blood 3.7 g/dL (2.2-4.0); Magnesium, Blood 1.8 mg/dL (1.6-2.4); Potassium, Blood 3.2 mmol/L (3.5-5.5); Total Protein, Blood 5.7 g/dL (6.4-8.2)
[2023-02-26 23:39] LABS: Digoxin (Lanoxin) 0.39 ug/mL (0.80-2.00)
[2023-02-27 00:28] VITALS: BP 87/48
[2023-02-27 04:12] LABS: BASOPHILS ABSOLUTE AUTO 0.08 K/mm3 (0.00-0.23); BASOPHILS PERCENT AUTO 1 % (0-2); EOSINOPHILS PERCENT AUTO 2 % (0-6); Hematocrit 26.8 % (33.0-51.0); Hemoglobin 8.9 g/dL (11.5-16.0); IMMATURE GRAN ABSOLUTE AUTO 0.37 K/mm3 (0.00-0.10); IMMATURE GRAN PERCENT AUTO 3 % (0-1); LYMPHOCYTES ABSOLUTE AUTO 1.89 K/mm3 (0.84-5.20); LYMPHOCYTES PERCENT AUTO 17 % (21-46); MONOCYTES ABSOLUTE AUTO 0.88 K/mm3 (0.16-1.47); MONOCYTES PERCENT AUTO 8 % (4-13); Mean Corpuscular HGB 30.6 pg (26.0-34.0); Mean Corpuscular HGB Conc 33.2 g/dL (31.5-36.5); Mean Corpuscular Volume 92 fL (80-100); Mean Platelet Volume 10.2 fL (9.1-12.4); NEUTROPHILS ABSOLUTE AUTO 7.65 K/mm3 (1.96-9.15); NEUTROPHILS PERCENT AUTO 69 % (41-73); Platelet Count 338 K/mm3 (150-400); RDW Coefficient Variation 14.2 % (11.7-14.2); RDW Standard Deviation 47.9 fL (35.1-46.3); Red Blood Cell Count 2.91 M/mm3 (3.80-5.20); White Blood Cell Count 11.07 K/mm3 (4.00-11.30)
[2023-02-27 04:44] LABS: Albumin, Blood 2.1 g/dL (3.4-5.0); Albumin/Globulin Ratio 0.6 (0.8-1.8); Bilirubin, Total 0.4 mg/dL (0.1-1.0); Calcium, Blood 7.4 mg/dL (8.5-10.1); Creatinine, Blood 0.59 mg/dL (0.40-1.00); Globulin, Blood 3.7 g/dL (2.2-4.0); Potassium, Blood 3.1 mmol/L (3.5-5.5); Total Protein, Blood 5.8 g/dL (6.4-8.2)
[2023-02-27 04:54] VITALS: BP 111/73
--- NOTE | 2023-02-27 06:08 | NUR ---
SHIFT SUMMARY PT IS HERE WITH SEPSIS SECONDARY TO CHOLECYSTITIS, WITH HER BEING POD#2 FROM A OPEN CHOLECYSTECTOMY. LAB ATTEMPTED TO DRAW BLOOD FOR A VANCO TROUGH AT THE BEGINNING OF THE SHIFT, BUT WAS UNABLE TO. ANOTHER CHIP APPLYING MACHINE TENDER CAME WHEN SHE WAS ON SHIFT AND WAS ALSO UNABLE TO DRAW BLOOD. PT WAS FRUSTRATED AND THIS RN SUGGESTED A POWERGLIDE. EDUCATION PROVIDED TO LET PT KNOW THAT WITH THE POWERGLIDE, NO FURTHER LAB DRAWS WOULD BE NEEDED STAFF CAN PULL BLOOD FROM THE POWERGLIDE. PT WAS HESITANT TO AGREE, BUT DID EVENTUALLY LET BASILIO CARABALLO PUT ONE IN. PT'S PAIN MEDICATED PER EMAR THROUGHOUT THE EVENING AND THIS RN ASKED THE PROVIDER TO RE-START THE PT'S HOME ANXIETY MEDICATION PER PT REQUEST. JOSE DRAIN STILL HAS SANGUINEOUS OUTPUT, BUT WITH A DECREASED VOLUME FROM THE PREVIOUS CIGARETTE BOOK MAKER. BANDAGES ON PT'S ABD ARE C/D/I. PT'S VITAL SIGNS HAVE ALSO BEEN MORE STABLE THIS SHIFT, WITH THE PT'S SYSTOLIC BP BEING OVER 100 TWICE. NO OTHER ACUTE EVENTS OCCURRED OVERNIGHT. BED IS IN LOWEST POSITION, CALL LIGHT IS WITHIN REACH.
[2023-02-27 07:52] VITALS: BP 104/66
[2023-02-27 11:56] VITALS: BP 96/70
--- NOTE | 2023-02-27 12:43 | NUR ---
PT IS REFUSING CARE SHE HAS BEEN EXPLAINED THE RISKS OF BED SOARS, DEVELOPING PNA, RISKS OF BLOOD CLOTS, AND DECONDITIONING. THE PT STATED, "I UNDERSTAND, AND I DO NOT CARE". I HAVE LET MY CHARGE NURSE KNOW. PT IS A&OX4.
--- NOTE | 2023-02-27 14:50 | NUR ---
MORNING SUMMARY PT IS A&OX4, HAS NOT BEEN COOPERATIVE W/ CARE AND HAS THREATEN TO FIGHT OUR CHARGE NURSE. SHE IS NOT A THREAT. THE PT IS BEDBOUND, AND HAS MINIMAL MOVEMENT IN ALL EXTREMITIES. SHE NEEDS TO BE A Q2 HOUR TURN (HAS BEEN REFUSING), HAS A PURWICK DRAINING TO SUCTION, HAS BEEN AFIB 90'S-110'S ON TELE, AND IS ON RA. THE PT DID HAVE SOME NAUSEA AND ABD PAIN THIS MORNING AFTER YELLING AT STAFF. SHE WAS MEDICATED PER EMAR AND EDUCATED THAT STRAINING HERSELF CAN CAUSE PAIN AND ISSUES W/ HEALING. SHE IS POST OP DAY TWO FROM HER BIANCA AND HAS A RUPERT THAT IS C/D/I, HAS A JOSE DRAIN IN HER RUQ DRAINING SEROSANGUINEOUS FLUID W/ A C/D/I DRESSING, AND A UNBILICAL DRESSINING THAT IS C/D/I. WE HAVE HAD NO ACUTE EVENTS THIS SHIFT. PT IS SURGICAL TELE STATUS AND WILL BE TRANSFERING TO ROOM 227.
[2023-02-27 15:36] VITALS: BP 108/69
--- NOTE | 2023-02-27 16:42 | NUR ---
SHIFT SUMMARY PATIENT TRANSFERRED FROM [facility] AT APPROX, 1515, VIA BED. VITAL SIGNS STABLE. IV ABX INFUSING. PATIENT HAS NOTED EDEMA IN BILAT UPPPER AND LOWER EXTREMETIES. CURRENTLY ON RA. ATTENDS WITH DARIELA IN PLACE C/D/I. PATIENT REPORTS SHE IS INCONT. TELE IN PLACE, CURRENTLY A-FIB 110 PER WORD PROCESSOR OPERATOR. MEDICATED FOR PAIN PER EMAR. MEDICATED FOR NAUSEA. TOLERATES WELL. PATIENT IS AOX-[address]IGHT IN [facility].
[2023-02-27 19:18] VITALS: BP 122/67
[2023-02-28] VITALS (7 sets, daily range): BP systolic 75–101; BP diastolic 51–73
[2023-02-28 05:19] LABS: BASOPHILS PERCENT AUTO 1 % (0-2); EOSINOPHILS ABSOLUTE AUTO 0.35 K/mm3 (0.00-0.68); EOSINOPHILS PERCENT AUTO 3 % (0-6); Hematocrit 26.7 % (33.0-51.0); Hemoglobin 8.8 g/dL (11.5-16.0); IMMATURE GRAN PERCENT AUTO 4 % (0-1); LYMPHOCYTES ABSOLUTE AUTO 1.77 K/mm3 (0.84-5.20); LYMPHOCYTES PERCENT AUTO 17 % (21-46); MONOCYTES ABSOLUTE AUTO 0.92 K/mm3 (0.16-1.47); MONOCYTES PERCENT AUTO 9 % (4-13); Mean Corpuscular HGB 30.9 pg (26.0-34.0); Mean Corpuscular Volume 94 fL (80-100); Mean Platelet Volume 9.9 fL (9.1-12.4); NEUTROPHILS ABSOLUTE AUTO 7.14 K/mm3 (1.96-9.15); NEUTROPHILS PERCENT AUTO 67 % (41-73); NRBC ABSOLUTE 0.02 K/mm3 (0.00-0.02); NRBC Auto 0.2 /100 WBC (0.0-0.2); Platelet Count 383 K/mm3 (150-400); RDW Coefficient Variation 14.5 % (11.7-14.2); RDW Standard Deviation 48.8 fL (35.1-46.3); Red Blood Cell Count 2.85 M/mm3 (3.80-5.20); White Blood Cell Count 10.68 K/mm3 (4.00-11.30)
[2023-02-28 06:03] LABS: Alanine Aminotransfer (ALT/SGP 24 U/L (12-78); Albumin, Blood 2.1 g/dL (3.4-5.0); Albumin/Globulin Ratio 0.6 (0.8-1.8); Alk Phos 70 U/L (50-136); Anion Gap 5 mmol/L (6-16); Aspartate Aminotrans (AST/SGOT 12 U/L (12-37); Bilirubin, Total 0.3 mg/dL (0.1-1.0); Blood Urea Nitrogen 8 mg/dL (8-24); Bun/Creatinine Ratio 14.9 (12.0-20.0); CO2, Blood 30 mmol/L (21-32); Calcium, Blood 7.4 mg/dL (8.5-10.1); Chloride, Blood 103 mmol/L (98-108); Creatinine, Blood 0.54 mg/dL (0.40-1.00); Digoxin (Lanoxin) 0.54 ug/mL (0.80-2.00); Globulin, Blood 3.7 g/dL (2.2-4.0); Glomerular Filtration Rate 102 (60-); Glucose, Blood 147 mg/dL (70-99); Potassium, Blood 3.6 mmol/L (3.5-5.5); Sodium, Blood 138 mmol/L (136-145); Total Protein, Blood 5.8 g/dL (6.4-8.2)
--- NOTE | 2023-02-28 06:31 | NUR ---
SHIFT SUMMARY PT IS HERE WITH SEPSIS SECONDARY TO CHOLECYSTITIS AND POD#3 FROM AN OPEN CHOLECTOMY. PT HAD NO ACUTE EVENTS OVERNIGHT, BP HAS BEEN A LITTLE SOFT, BUT NOT UNCOMMON FOR THIS PT. TELE REPORTED THAT THE PT IS RUNNING A-FIB WITH A HR BETWEEN THE 110'S - 140'S. PT REFUSED TO BE TURNED WHEN SHE ASKED THIS RN TO PLACE A NEW PUREWICK CATHETER. ASIDE FROM NOT WANTING TO BE TURNED, THE PT'S INTERACTIONS WITH THIS RN HAS BEEN APPROPRIATE. BED IS IN LOWEST POSITION, CALL LIGHT IS WITHIN REACH.
--- NOTE | 2023-02-28 16:57 | NUR ---
SUMMARY PT HAS REFUSED REPOSITIONING T/O SHIFT. REFUSED TO WORK WITH THERAPY TODAY. PT'S BP CONTINUES TO BE HYPOTENSIVE. DR DIAZ. PT ANXIOUS AND IRRITABLE AT TIMES. OBTAINED ORDERS FOR PT TO RECEIVE XANAX DAILY PRN AND ADMINISTERED TO PT PER PT'S REQUEST. MEDICATED PER ORDERS FOR PAIN. PUREWICK IN PLACE, DRAINING DARK YELLOW URINE. PT HAS SLEPT OFF AND ON T/O DAY. HAS NOT REQUIRED COVERAGE FOR CBGS. CALL LIGHT IN REACH.
--- NOTE | 2023-02-28 22:15 | NUR ---
BEHAVIOR: PT HAS BEEN YELLING OUT AND YELLING AT STAFF WHEN IN ROOM. PT EDUCATED WELDING SYSTEMS AND EQUIPMENT REPAIRER LIGHT USE AND ON BEHAVIOR POLICY TOWARDS STAFF. PT STATES "I DON'T CARE" "NO ONE LIKES THIS HOSPITAL" PT EDUCATED THAT DISRESPECTFUL BEHAVIOR TOWARDS STAFF IS NOT TOLERATED. NURSING CLINICAL RESEARCH ASSOCIATE UPDATED ON PT'S BEHAVIOR.
[2023-03-01 01:23] VITALS: BP 89/63
--- NOTE | 2023-03-01 03:27 | NUR ---
BEHAVIOR: PT YELLING OUT, FEED MILLER REP PT REQ TO SPEAK W/ROUTER OPERATOR PIN. PER PRIMARY RN PT'S BP TRENDING HYPO. PRIMARY RN HAS CONCERNS R/T PT'S LOW BP AND NARCOTIC MEDS. PT YELLING DEMANDING PAIN MEDICATIONS. PT EDUATED ON LOW BP AND AFFECTS OF PAIN MEDS. PT OFFERED NON NARCOTIC MEDS. PT REFUSING TYLENOL. PT YELLING AT RN'S IN ROOM STATING "THAT NURSE IS INCOMPETANT" "SHE MUST BE NEW" PT EDUCATED AGAIN ON BEHAVIOR POLICY PT STATES "I DON'T CARE" NURSING WATER VALVE MECHANIC GALLITO.
--- NOTE | 2023-03-01 04:00 | NUR ---
BEHAVIOR: PT YELLING AT PRIMARY RN. PT ACCUSING RN OF NOT ROUNDING AND MEDICATING. PRIMARY RN ATTEMPTING TO EDUCATE PT ON MEDICATIONS GIVEN. PT CONT TO YELL AT RN. PT AGAIN TOLD THIS BEHAVIOR WILL NOT BE TOLERATED. PT STATES "I DON'T CARE" "I AM GOING TO KEEP YELLING" PT CALLED PRIMARY RN "A BITCH" AND SAYS "SHE'S RETARDED" NURSING HAND MIXER UPDATED, SECURITY CALLED PER HAND MIXER REJarret.
--- NOTE | 2023-03-01 06:53 | NUR ---
PT SCREAMING IN ROOM. DEMANDING STAFF BRING IN MEDS. PT INFORMED PRIMARY RN IN WITH ANOTHER PT ADN TO STOP YELLING SO NOT TO DISTURB OTHER PTS. PT STATES "I DON'T GIVE A FUCK" "I WANT MY GOD DAMN MEDS" PT REACHING FOR CUP ON BEDSIDE TABLE, DEMANDING THIS RN PLACE CUP IN HER HANDS. PT STATING "I CAN'T REACH IT" PT INFORMED THAT SHE WAS TOUCHING THE CUP. PT PUSHED CUP AWAY AND STATES "GOD DAMN IT YOU GIVE ME THE FUCKING THING"
[2023-03-01 07:27] VITALS: BP 100/65
[2023-03-01 07:41] LABS: Hematocrit 27.5 % (33.0-51.0); Hemoglobin 9.1 g/dL (11.5-16.0); Mean Corpuscular HGB 30.6 pg (26.0-34.0); Mean Corpuscular HGB Conc 33.1 g/dL (31.5-36.5); Mean Corpuscular Volume 93 fL (80-100); Mean Platelet Volume 9.7 fL (9.1-12.4); NRBC ABSOLUTE 0.09 K/mm3 (0.00-0.02); NRBC Auto 0.8 /100 WBC (0.0-0.2); Platelet Count 455 K/mm3 (150-400); RDW Coefficient Variation 14.6 % (11.7-14.2); RDW Standard Deviation 48.9 fL (35.1-46.3); Red Blood Cell Count 2.97 M/mm3 (3.80-5.20); White Blood Cell Count 11.84 K/mm3 (4.00-11.30)
--- NOTE | 2023-03-01 07:56 | NUR ---
SHIFT SUMMARY NOC. T/C PLACED TO HOSPITALIST REGARDING LOW BLOOD PRESSURE OF 75/52. PT DENIED CP, SOB OR DIZZINESS AT TIME OF BP. NEW ORDERS RECEIVED FOR MIDODRINE. PT BP IMPROVED MINIMALLY WITH MEDICATION. PT'S BEDTIME BP MEDS WERE HELD PRIOR TO LOW BP. PT IN AFIB IN THE 100S ON TELEMETRY. PT WAS VERBALLY UPSET ABOUT NOT RECEIVING NORCO FOR PAIN WHEN HYPOTENSIVE. PROVIDED EDUCATION TO PT REGARDING SAFETY OF POOR TISSUE PERFUSION. PT CALLED THIS RN A "BITCH" AND A "RETARD". CHARGE NURSE, SECURITY, PHARMACIST MANAGER STAFF, AND MYSELF ATTEMPTED TO DEESCALATE PATIENT. PT REFUSING TURNING AND REPOSITIONING. PT REPORTED "IF ANYONE WAKES ME UP I WILL SCREAM". PT DECLINED TYLENOL BUT DID ACCEPT ONE DOSE OF TORADOL. AT SOME POINTS OF THE NIGHT PT SCREAMED OUT YELLING. PT RESTED FOR PERIODS OF THE NIGHT WITH CALL LIGHT IN REACH.
[2023-03-01 08:01] LABS: Calcium, Blood 7.6 mg/dL (8.5-10.1); Creatinine, Blood 0.59 mg/dL (0.40-1.00); Potassium, Blood 3.8 mmol/L (3.5-5.5)
[2023-03-01 08:05] LABS: BASOPHILS PERCENT MAN 0 % (0-2); EOSINOPHILS ABSOLUTE MAN 0.35 K/mm3 (0.00-0.68); EOSINOPHILS PERCENT MAN 3 % (0-6); LYMPHOCYTES ABSOLUTE MAN 1.77 K/mm3 (0.84-5.20); LYMPHOCYTES PERCENT MAN 15 % (21-46); METAMYELOCYTE ABSOLUTE MAN 0.23 K/mm3 (0.00-0.00); METAMYELOCYTE PERCENT MAN 2 % (0-0); MONOCYTES ABSOLUTE MAN 0.47 K/mm3 (0.16-1.47); MONOCYTES PERCENT MAN 4 % (4-13); MYELOCYTE ABSOLUTE MAN 0.35 K/mm3 (0.00-0.00); MYELOCYTE PERCENT MAN 3 % (0-0); NEUTROPHILS ABSOLUTE MAN 8.64 K/mm3 (1.96-9.15); SEG NEUTROPHILS PERCENT MAN 73 % (41-73); TOTAL CELLS COUNTED 100
--- NOTE | 2023-03-01 10:33 | NUR ---
PT REFUSED REPOSITIONING. EDUCATED ON IMPORTANCE OF REPOSITIONING Q2, PT VERBALIZED UNDERSTANDING AND REFUSED TO ALLOW REPOSITION. ALSO REFUSED COLACE; EDUCATED ON IMPORTANCE TO PREVENT CONSTIPATION.
--- NOTE | 2023-03-01 11:29 | NUR ---
PT REFUSED REPOSITION ON HOURLY ROUNDING.
--- NOTE | 2023-03-01 11:30 | NUR ---
MAD Consult received. Spoke with RN and COMPLIANCE ADMINISTRATOR. I have seen this patient on a previous admission for a MAD Consult. Security, Carson Mcgraw, and I went to speak with patient. She began yelling at us as soon as we went into her room. She was not willing to have a conversation about her behavior and was not receptive to any discussion at all. Dr. Vinod Wright updated regarding her behavior concerns.
[2023-03-01 12:37] VITALS: BP 106/59
--- NOTE | 2023-03-01 12:58 | NUR ---
PT REFUSING REPOSITION. PAD WET UNDER PT, REFUSING TO ALLOW US TO CHANGE IT. EDUCATED PT ON DANGER OF SITTING IN URINE, PT STILL CONTINUED TO REFUSE REPOSITION/CLEAN UP UNDER AFTER PAIN MEDS. SPOKE TO DR FUENTES, ADMINISTERED PAIN MEDS EARLY SO PT MAY BE IN POSITION TO WORK WITH THERAPY AND STAFF AND CHANGE AND CLEAN PT.
--- NOTE | 2023-03-01 13:35 | NUR ---
DR HERNANDEZ IN TO SEE PT.
--- NOTE | 2023-03-01 14:28 | NUR ---
LINENS CHANGED USED LIFT TO ASSIST IN TURNING AND CHANGING LINENS FROM UNDER PT. NEW MEPILEX PLACED TO BUTTOCKS/COCCYX. BUTTOCKS APPEARED BRUISED. THERAPY NOW INTO SEE PT.
[2023-03-01 15:10] VITALS: BP 116/71
--- NOTE | 2023-03-01 16:51 | NUR ---
SUMMARY PT REFUSED REPOSITIONING AND CARE UNTIL THIS AFTERNOON WHEN ALLOWED STAFF TO CHANGE OUT SOILED LINENS, PERFORM PETEY CARE AND CHANGE MEPILEX TO BUTTOCKS. PLACED COCCYX MEPILEX IN ADDITION TO MEPILEX TO ABRASION ON BUTTOCKS. APPEARS PT HAS PURPLISH BRUISING TO BUTTOCKS. PT HAD BEEN EDUCATED ON IMPORTANCE OF REPOSITIONING TO PRESERVE SKIN INTEGRITY; VERBALIZED UNDERSTANDING. THIS AFTERNOON, PT WORKED WITH THERAPY. LIFT WAS USED TO TRANSFER PT FROM BED TO RECLINER. PT SAT UP BRIEFLY AND THEN LIFT USED TO TRANSFER BACK TO BED. THIS AFTERNOON, HR ELEVATED IN 120S. NOTIFIED DR FUENTES; METOPROLOL GIVEN PER ORDERS. DR HERNANDEZ IN TO SEE PT THIS AFTERNOON AND DC'D JOSE DRAIN. DRAIN SITE OOZING SS FLUID, PLACED GAUZE AND TAPE OVER SITE. PT NOW RESTING WITH LIGHTS OFF, CALL LIGHT IN REACH.
[2023-03-01 19:23] VITALS: BP 110/77
--- NOTE | 2023-03-01 21:50 | NUR ---
TRANSFER REPORTS GIVEN TO DOMINGA LEONG, DEHYDROGENATION OPERATOR HEAD'S TRANSFERED PT TO MEDICAL 344.
--- NOTE | 2023-03-01 22:34 | NUR ---
TRANSFER NOTE PATIENT ARRIVED TO FLOOR VIA GURNEY. PT ORIENTED TO UNIT. PERSONAL POSSESSIONS WITH PT. CALL BUTTON WITHIN REACH. RUPERT DRAIN IN PLACE. DRESSINGS ON ABDOMEN CHANGED ON PREVIOUS SHIFT. DRESSINGS ARE CLEAN, DRY, AND INTACT. PUREWICK IN PLACE.
[2023-03-02 02:31] VITALS: BP 108/74
--- NOTE | 2023-03-02 04:08 | NUR ---
SHIFT SUMMARY ADMITTED FOR CHOLECYSTECTOMY. FULL CODE. TRANSFERED FROM SURGICAL UNIT TO MEDICAL UNIT THIS SHIFT. PLAN IS FOR PLACEMENT. TELEMETRY: AFIB @ 111 BPM. POWERGLIDE IN LUE. RUPERT DRAIN IN PLACE, JOSE DRAIN REMOVED ON SURGICAL UNIT. DRESSINGS ON MIDLINE INCISION/ABDOMINAL INCISIONS ARE C/D/I, CHANGED ON PREVIOUS SHIFT. PROCEDURE WAS PERFORMED ON 02/25. DR. HERNANDEZ IS SURGICAL CONSULT. BEDBOUND AT BASELINE, LIFT PATIENT. INCONTINENT, PUREWICK IN PLACE. SHE IS ON XARELTO. ADA DIET, ACHS CBG'S. A&O X4. PAIN MEDICATION GIVEN THIS SHIFT. Q2 TURNS AND REPOSITIONING. ABRASIONS ON BUTTOCKS, MEPILEX IN PLACE.
[2023-03-02 06:10] LABS: Hematocrit 26.8 % (33.0-51.0); Hemoglobin 8.8 g/dL (11.5-16.0); Mean Corpuscular HGB 30.8 pg (26.0-34.0); Mean Corpuscular HGB Conc 32.8 g/dL (31.5-36.5); Mean Corpuscular Volume 94 fL (80-100); Mean Platelet Volume 9.4 fL (9.1-12.4); NRBC ABSOLUTE 0.08 K/mm3 (0.00-0.02); NRBC Auto 0.8 /100 WBC (0.0-0.2); Platelet Count 428 K/mm3 (150-400); RDW Coefficient Variation 14.9 % (11.7-14.2); RDW Standard Deviation 50.4 fL (35.1-46.3); Red Blood Cell Count 2.86 M/mm3 (3.80-5.20); White Blood Cell Count 9.48 K/mm3 (4.00-11.30)
[2023-03-02 06:30] LABS: Bun/Creatinine Ratio 16.6 (12.0-20.0); Calcium, Blood 7.6 mg/dL (8.5-10.1); Creatinine, Blood 0.6 mg/dL (0.40-1.00); Potassium, Blood 3.8 mmol/L (3.5-5.5)
[2023-03-02 07:14] VITALS: BP 135/91
[2023-03-02 08:08] LABS: BAND PERCENT MAN 4 % (0-8); BASOPHILS ABSOLUTE MAN 0.09 K/mm3 (0.00-0.23); BASOPHILS PERCENT MAN 1 % (0-2); EOSINOPHILS ABSOLUTE MAN 0.28 K/mm3 (0.00-0.68); EOSINOPHILS PERCENT MAN 3 % (0-6); LYMPHOCYTES ABSOLUTE MAN 1.13 K/mm3 (0.84-5.20); LYMPHOCYTES PERCENT MAN 12 % (21-46); METAMYELOCYTE ABSOLUTE MAN 0.09 K/mm3 (0.00-0.00); METAMYELOCYTE PERCENT MAN 1 % (0-0); MONOCYTES ABSOLUTE MAN 0.47 K/mm3 (0.16-1.47); MONOCYTES PERCENT MAN 5 % (4-13); MYELOCYTE ABSOLUTE MAN 0.47 K/mm3 (0.00-0.00); MYELOCYTE PERCENT MAN 5 % (0-0); NEUTROPHILS ABSOLUTE MAN 6.92 K/mm3 (1.96-9.15); SEG NEUTROPHILS PERCENT MAN 69 % (41-73); TOTAL CELLS COUNTED 100
[2023-03-02 10:34] VITALS: BP 105/67
[2023-03-02 15:28] VITALS: BP 128/78
--- NOTE | 2023-03-02 19:42 | NUR ---
SHIFT SUMMARY PATIENT EMOTIONAL AND LABILE THIS MORNING UNTIL AFTER HER MEDICATIONS INCLUDING ANXIETY MEDS GIVEN. SHE WAS UPSET ABOUT NOT HAVING REGULAR SODA AND STATES "IM NOT DIABETIC" THIS DIRECTOR OF ANALYTICS EDUCATED HER ON HER A1C LEVEL AND SPOKE WITH DR VIEIRA AT HER REQUEST TO INDEED VERIFY DIABETES, EDUCATION ON WOUND HEALING AND DIABETES GIVEN. PATIENT V/U AND WAS NO LONGER UPSET TO DRINK DIET SODA. SHE IS VERY EMOTIONAL AND CRYING WHEN TOLD SHE WILL GO HOME. SHE STATES "WELL I WILL JUST OFF MYSELF IF I GO HOME AND I DO KNOW HOW TO DO IT BECAUSE NO ONE WILL BE ABLE TO CARE FOR ME THERE. I SLEEP IN MY RECLINER AND ONLY GET 15 HOURS PER WEEK OF CAREGIVER HELP. THERES NOT EVEN ROOM FOR A HOSPITAL BED AND I DONT FEEL SAFE GOING HOME WITH NO HELP, MY CANNOT CARE FOR ME". LATER SHE STATES "I WANT TO GO TO REHAB TO GET STRONGER SO I CAN GO HOME SAFELY". SHE VERBALIZES AGREEMENT TO WORK WITH PT DAILY AND AGREEABLE TO GO OUT OF TOWN FOR CARE. AND THE CHARGE NURSE JANA IS NOTIFIED PATIENT NEEDS A LIFT ROOM ON THE REGULAR FLOOR HER BEHAVIORS ARE NO LONGER APPEARING TO BE AN ISSUE. PATIENT MEDICATED FOR PAIN. INCISION DRESSINGS CDI, RUPERT DRAIN IN PLACE OVER ABDOMEN. PATIENT HAD SMALL BM THIS EVENING. BED IN LOW POSITION, CALL LIGHT IN REACH. SHE IS ABLE TO MAKE NEEDS KNOWN.
[2023-03-02 20:24] VITALS: BP 111/86
--- NOTE | 2023-03-02 20:55 | NUR ---
CALLED HOSPITALIST INFORMED HIM ABOUT PATIENT'S LOWER BP AND HR. INFORMED HIM OF PATIENT'S TENDENCY TO GO HYPOTENSIVE. HE WILL REVIEW THE CHART AND MAKE ADJUSTMENTS TO HS MEDICATIONS. WILL CONTINUE TO MONITOR
--- NOTE | 2023-03-03 03:51 | NUR ---
SHIFT SUMMARY ADMITTED FOR CHOLECYSTECTOMY. POST OP MIDLINE BIANCA 02/25. FULL CODE. PLAN IS FOR PLACEMENT VS HOME W/HH. POWERGLIDE IN PLACE. TELEMETRY: AFIB @ [address]PM. [address] DRAIN [address] PLACE. JOSE DRAIN HAS BEEN REMOVED. SHE IS BEDBOUND, LIFT PATIENT. ADA DIET. ACHS CBG'S. A&O X4. INCONTINENT, PUREWICK IN PLACE. SHE IS ON XARELTO. ABRASIONS ON HER BUTTOCKS. PAIN MEDICATION GIVEN, SEE EMAR. DR. HERNANDEZ IS SURGICAL CONSULT. NO NEW CONCERNS THIS SHIFT.
[2023-03-03 04:51] VITALS: BP 127/84
[2023-03-03 07:08] VITALS: BP 120/64
[2023-03-03 15:52] VITALS: BP 114/73
--- NOTE | 2023-03-03 17:50 | NUR ---
SHIFT SUMMARY PT COOPERATIVE W/ CARE AND PLEASANT THIS SHIFT. PT WORKED W/ PHYSICAL THERAPY AND TOLERATED WELL. NO OTHER ACUTE CHANGES. PLAN FOR TRANSFER TO ROOM W/ LIFT. DISCHARGE AWAITING SNF APPROVAL, SEE CARE COORDINATION NOTES. CALL LIGHT WITHIN REACH AND PT ABLE TO MAKE NEEDS KNOWN.
[2023-03-03 20:00] VITALS: BP 111/75
[2023-03-04 04:09] VITALS: BP 107/62
--- NOTE | 2023-03-04 07:24 | NUR ---
SHIFT SUMMARY PT LAYING IN BED DURING BEDSIDE REPORT- PT TOOK SCHEDUED HS MEDS WITHOUT PROBLEMS, PT COOPERATIVE WITH CARE T/O NIGHT- PUREWICK IN PLACE= CLEAR YELLOW URINE- BED LOW POSITION, CALL LIGHT WITHIN REACH
[2023-03-04 08:05] VITALS: BP 92/53
--- NOTE | 2023-03-04 11:12 | NUR ---
Spiritual Care Consult requested by Dr. Nhan Rivera Pt. is awake in bed in a darkened room when she welcomes my visit. Pt. is unsettled by the circumstances of her condition and that no family members have visited her since this admission. Pt. is tearful and displays evidence of a boken heart. Listen with empathy and a calming presence. Pt. verbalized a request for this home comfort advisor to contact Pts. spouse. Facilitated a life review, and prayed with the Pt. Will check with nursing staff to see if family have been contacted. Pt. displayed evidence of being encouraged and that her concerns had been heard, Pts. mood was lightened. Pt. verbalized gratitude for the spiritual care visit.
[2023-03-04 17:04] VITALS: BP 97/54
[2023-03-04 17:05] VITALS: BP 97/54
--- NOTE | 2023-03-04 17:32 | NUR ---
DAYSHIFT SUMMARY Patient alert & oriented x3, cooperative with cares. Patient worked with PT/OT today, did exercises in bed. CBGS AM-125, Lunch-144, Dinner-105, no SSI needed. New order- started Jardiance today. BP soft, telemetry Afib & 91. Awaiting discharge planning. Will continue plan of care.
[2023-03-04 19:34] VITALS: BP 124/78
[2023-03-05 06:02] VITALS: BP 143/96
--- NOTE | 2023-03-05 06:32 | NUR ---
SHIFT SUMMARY PT LAYING IN BED DURING BEDSIDE REPORT- PT REQUESTING TO BE REPOSITIONED AND GOWN CHANGED AT BEGINNING OF SHIFT- APPLIED NEW GOWN- ASSISTED WITH CHANGING GOWN- CHANGED OUT THE PUREWICK, PT TOLERATED WELL - MEDICATED PT FOR PAIN X2 IN SHIFT- PT APPROPRIATE WITH STAFF AND PARTICIPATED IN REPOSITIONING- BED LOW POSITION, CALL LIGHT WITHIN REACH
[2023-03-05 08:11] VITALS: BP 125/67
[2023-03-05 16:59] VITALS: BP 127/76
--- NOTE | 2023-03-05 17:29 | NUR ---
DAYSHIFT SUMMARY Patient alert & oriented x4. Incontinent of B/B, reports increased weakness and pain. 2x staff to assist with cares and repositioning. Patient reported that she received a phone call that her appeal was denied, notifed RN caremanager on discharge planning. Vitals stable. CBGs WNL. Telemetry in place afib @ 99. Will continue plan of care.
[2023-03-05 20:37] VITALS: BP 119/67
--- NOTE | 2023-03-06 02:47 | NUR ---
SHIFT SUMMARY PT AWAKE AT START OF SHIFT, WANTING TO BE REPOSITIONED. PT REPOSITIONED MULTIPLE TIMES BEFORE GOING TO SLEEP, SOMETIMES EVERY COUPLE OF MINUTES. PT INCONTINENT OF BOWEL AND BLADDER; CHANGED NEEDED. PER REPORT, PT MEDICALLY STABLE AND WAITING FOR D/C. MEDICATED FOR C/O PAIN PRIOR TO START OF SHIFT. PT FINALLY GOING TO SLEEP AFTER A FEW HOURS AND ABLE TO REST QUIETLY WHEN ASLEEP. SWELLING TO BLE'S NOTED; ELEVATED ON PILLOWS AND WITH BED. SWELLING TO BUE'S WELL; ELEVATED WITH PILLOWS PER PT REQUEST. CALL LT IN REACH AND ABLE TO MAKE NEEDS KNOWN.
[2023-03-06 05:56] VITALS: BP 108/58
[2023-03-06 05:59] LABS: BASOPHILS ABSOLUTE AUTO 0.06 K/mm3 (0.00-0.23); BASOPHILS PERCENT AUTO 1 % (0-2); EOSINOPHILS ABSOLUTE AUTO 0.35 K/mm3 (0.00-0.68); EOSINOPHILS PERCENT AUTO 5 % (0-6); Hematocrit 27.8 % (33.0-51.0); Hemoglobin 8.9 g/dL (11.5-16.0); IMMATURE GRAN ABSOLUTE AUTO 0.38 K/mm3 (0.00-0.10); IMMATURE GRAN PERCENT AUTO 5 % (0-1); LYMPHOCYTES ABSOLUTE AUTO 1.48 K/mm3 (0.84-5.20); LYMPHOCYTES PERCENT AUTO 19 % (21-46); MONOCYTES ABSOLUTE AUTO 0.54 K/mm3 (0.16-1.47); MONOCYTES PERCENT AUTO 7 % (4-13); Mean Corpuscular HGB 30.4 pg (26.0-34.0); Mean Corpuscular Volume 95 fL (80-100); Mean Platelet Volume 9.1 fL (9.1-12.4); NEUTROPHILS ABSOLUTE AUTO 4.83 K/mm3 (1.96-9.15); NEUTROPHILS PERCENT AUTO 63 % (41-73); NRBC ABSOLUTE 0.03 K/mm3 (0.00-0.02); NRBC Auto 0.4 /100 WBC (0.0-0.2); Platelet Count 493 K/mm3 (150-400); RDW Coefficient Variation 15.6 % (11.7-14.2); RDW Standard Deviation 53.5 fL (35.1-46.3); Red Blood Cell Count 2.93 M/mm3 (3.80-5.20); White Blood Cell Count 7.64 K/mm3 (4.00-11.30)
[2023-03-06 07:37] VITALS: BP 123/61
--- NOTE | 2023-03-06 16:21 | NUR ---
SHIFT SUMMARY PATIENT IS ALERT AND ORIENTED. PATIENT HAS HAD NO ACUTE EVENTS THIS SHIFT. VITAL SIGNS REVIEWED. PATIENT HAS BEEN MEDICATED FOR PAIN MULTIPLE TIMES THIS SHIFT, MEDICATED PER EMAR. PATIENT HAS BEEN MEDICATED FOR ANXIETY THIS SHIFT, PER EMAR. PATIENT HAS BEEN REPOSITIONED FREQUENTLY THIS SHIFT PER PATIENT. PATIENT HAS NOT COMPLAINED OF SOB, NAUSEA OR VOMITTING THIS SHIFT. BED IN LOCKED AND LOWEST POSTION. CALL LIGHT IN PLACE. WILL MONITOR UNTIL SHIFT CHANGE.
[2023-03-06 16:56] VITALS: BP 114/83
[2023-03-06 19:58] VITALS: BP 134/77
--- NOTE | 2023-03-07 02:01 | NUR ---
SHIFT SUMMARY NO ACUTE CHANGES TO PRESENT THIS SHIFT. PT AWAKE DURING SHIFT REPORT. REPOSITIONED AGAIN SEVERAL TIMES BEFORE GOING TO SLEEP. MEDICATED FOR C/O PAIN AT HS. PT CONTINUES TO WAIT FOR D/C PLANS. INCONTINENT OF URINE. NO BM X2 DAYS; BOWEL CARE GIVEN. ALL EXTREMITIES ELEVATED ON PILLOWS D/T SWELLING. RESTING QUIETLY AT THIS TIME. CALL LT IN REACH.
[2023-03-07 05:20] LABS: BASOPHILS ABSOLUTE AUTO 0.05 K/mm3 (0.00-0.23); BASOPHILS PERCENT AUTO 1 % (0-2); EOSINOPHILS ABSOLUTE AUTO 0.34 K/mm3 (0.00-0.68); EOSINOPHILS PERCENT AUTO 4 % (0-6); IMMATURE GRAN ABSOLUTE AUTO 0.31 K/mm3 (0.00-0.10); IMMATURE GRAN PERCENT AUTO 4 % (0-1); LYMPHOCYTES ABSOLUTE AUTO 1.27 K/mm3 (0.84-5.20); LYMPHOCYTES PERCENT AUTO 17 % (21-46); MONOCYTES ABSOLUTE AUTO 0.55 K/mm3 (0.16-1.47); MONOCYTES PERCENT AUTO 7 % (4-13); Mean Corpuscular HGB 30.2 pg (26.0-34.0); Mean Corpuscular HGB Conc 32.1 g/dL (31.5-36.5); Mean Corpuscular Volume 94 fL (80-100); Mean Platelet Volume 9.1 fL (9.1-12.4); NEUTROPHILS ABSOLUTE AUTO 5.14 K/mm3 (1.96-9.15); NEUTROPHILS PERCENT AUTO 67 % (41-73); NRBC ABSOLUTE 0.03 K/mm3 (0.00-0.02); NRBC Auto 0.4 /100 WBC (0.0-0.2); Platelet Count 511 K/mm3 (150-400); RDW Coefficient Variation 15.4 % (11.7-14.2); RDW Standard Deviation 52.3 fL (35.1-46.3); Red Blood Cell Count 2.98 M/mm3 (3.80-5.20); White Blood Cell Count 7.66 K/mm3 (4.00-11.30)
[2023-03-07 05:23] VITALS: BP 131/94
[2023-03-07 05:47] LABS: Magnesium, Blood 2.1 mg/dL (1.6-2.4)
[2023-03-07 05:48] LABS: Albumin, Blood 2.3 g/dL (3.4-5.0); Anion Gap 7 mmol/L (6-16); Blood Urea Nitrogen 10 mg/dL (8-24); Bun/Creatinine Ratio 15.6 (12.0-20.0); CO2, Blood 27 mmol/L (21-32); Calcium, Blood 7.6 mg/dL (8.5-10.1); Chloride, Blood 105 mmol/L (98-108); Creatinine, Blood 0.64 mg/dL (0.40-1.00); Glomerular Filtration Rate 98 (60-); Glucose, Blood 101 mg/dL (70-99); Phosphorus, Blood 3.6 mg/dL (2.5-4.9); Potassium, Blood 3.4 mmol/L (3.5-5.5); Sodium, Blood 139 mmol/L (136-145)
[2023-03-07 07:46] VITALS: BP 120/77
--- NOTE | 2023-03-07 15:37 | NUR ---
DAYSHIFT SUMMARY Patient alert & oriented x4. Lasix 80mg administred this morning, patient has had approx 3L UO this shift. Hydrocodone given for ABD pain. CM updated RN, plan for patient to discharge tomorrow with caregivers, homehealth back to home w/ . Telemetry in place, Afib @ 101. Vitals stable. Dressing on ABD CDI. Will continue plan of care.
[2023-03-07 16:01] VITALS: BP 115/62
[2023-03-07 20:23] VITALS: BP 92/54
[2023-03-08 03:40] VITALS: BP 104/61
[2023-03-08 04:40] LABS: BASOPHILS ABSOLUTE AUTO 0.08 K/mm3 (0.00-0.23); BASOPHILS PERCENT AUTO 1 % (0-2); EOSINOPHILS ABSOLUTE AUTO 0.33 K/mm3 (0.00-0.68); EOSINOPHILS PERCENT AUTO 4 % (0-6); Hematocrit 30.5 % (33.0-51.0); Hemoglobin 9.7 g/dL (11.5-16.0); IMMATURE GRAN ABSOLUTE AUTO 0.29 K/mm3 (0.00-0.10); IMMATURE GRAN PERCENT AUTO 4 % (0-1); LYMPHOCYTES ABSOLUTE AUTO 1.52 K/mm3 (0.84-5.20); LYMPHOCYTES PERCENT AUTO 18 % (21-46); MONOCYTES PERCENT AUTO 7 % (4-13); Mean Corpuscular HGB 29.9 pg (26.0-34.0); Mean Corpuscular HGB Conc 31.8 g/dL (31.5-36.5); Mean Corpuscular Volume 94 fL (80-100); Mean Platelet Volume 8.9 fL (9.1-12.4); NEUTROPHILS ABSOLUTE AUTO 5.48 K/mm3 (1.96-9.15); NEUTROPHILS PERCENT AUTO 66 % (41-73); NRBC ABSOLUTE 0.03 K/mm3 (0.00-0.02); NRBC Auto 0.4 /100 WBC (0.0-0.2); Platelet Count 512 K/mm3 (150-400); RDW Coefficient Variation 15.1 % (11.7-14.2); RDW Standard Deviation 51.8 fL (35.1-46.3); Red Blood Cell Count 3.24 M/mm3 (3.80-5.20)
[2023-03-08 04:58] LABS: Bun/Creatinine Ratio 13.9 (12.0-20.0); Calcium, Blood 7.7 mg/dL (8.5-10.1); Creatinine, Blood 0.72 mg/dL (0.40-1.00); Potassium, Blood 3.2 mmol/L (3.5-5.5)
--- NOTE | 2023-03-08 05:06 | NUR ---
SHIFT SUMMARY NOC PT A/O X 4. PLEASANT AND COOPERATIVE WITH CARE. NO ACUTE CHANGES TO REPORT. PT ON TELE RUNNING AFIB IN 90'S. HAS PUREWICK IN PLACE. PT EXPECTED TO DISCHARGE HOME WITH WITH HOME HEALTH TOMORROW AFTER MULTIPLE SNF'S REFUSED PLACEMENT FOR PT DUE TO LACK OF MOTIVATION AND COOPERATION WITH CARE. PT IS CURRENTLY RESTING WITH BED IN LOWEST POSITION, AND CALL LIGHT WITHIN REACH.
[2023-03-08 07:24] VITALS: BP 125/79
== END 2023-03-08 12:12 | disposition home health service (06) | DRG 854 ==
LOC: ER 21:46 → MEDS 21:47 → SURS 02-24 14:54 → PCU 02-24 14:54 → MEDS 02-24 14:55 → PCU 02-25 15:48 → SURS 02-27 15:26 → MEDS 03-01 21:45 → ENPENDDIS 03-08 11:17 → MEDS 03-08 12:12
PROVIDERS: Emergency Medicine; Family Medicine; Student in an Organized Health Care Education/Training Program; Surgery; ADMIT Internal Medicine
PROC: 3E03329 Introduction of Other Anti-infective into Peripheral Vein, Percutaneous Approach (ICD-10-PCS; 2023-02-24)
PROC: 0FJ44ZZ Inspection of Gallbladder, Percutaneous Endoscopic Approach (ICD-10-PCS; 2023-02-25)
PROC: 0FT40ZZ Resection of Gallbladder, Open Approach (ICD-10-PCS; principal; 2023-02-25 12:30)
DX: A41.9 Sepsis, unspecified organism (principal); D62 Acute posthemorrhagic anemia; K80.00 Calculus of gallbladder with acute cholecystitis without obstruction; I48.20 Chronic atrial fibrillation, unspecified; I50.32 Chronic diastolic (congestive) heart failure; N39.0 Urinary tract infection, site not specified; E87.21 Acute metabolic acidosis; R65.20 Severe sepsis without septic shock; I11.0 Hypertensive heart disease with heart failure; E03.9 Hypothyroidism, unspecified; G47.00 Insomnia, unspecified; F32.A Depression, unspecified; M54.9 Dorsalgia, unspecified; G89.29 Other chronic pain; R07.9 Chest pain, unspecified; E11.65 Type 2 diabetes mellitus with hyperglycemia; K59.00 Constipation, unspecified; T50.906A Underdosing of unspecified drugs, medicaments and biological substances, initial encounter; Z53.31 Laparoscopic surgical procedure converted to open procedure; Z88.5 Allergy status to narcotic agent; Z88.0 Allergy status to penicillin; Z88.8 Allergy status to other drugs, medicaments and biological substances; Z79.890 Hormone replacement therapy; Z79.01 Long term (current) use of anticoagulants; Z79.1 Long term (current) use of non-steroidal anti-inflammatories (NSAID); Z11.52 Encounter for screening for COVID-19; Z91.138 Patient's unintentional underdosing of medication regimen for other reason
CPT/HCPCS: 0241U; 36415; 71046; 74177; 76705; 78226; 80048; 80053; 80069; 80162; 80202; 81001; 82947; 83036; 83605; 83735; 83880; 84100; 84145; 84484; 85025; 85610; 85730; 87040; 87077; 88304; 88312; 93005; 93010; 93306; 94760; 94762; 96365; 96375; 97110; 97162; 97165; 97530; 97535; 99285-25; A9270; A9537; C1729; C1751; J0696; J1100; J1644; J1885; J1940; J2250; J2405; J2704; J2765; J3010; J3370; J7040; J7050; J7120; Q9967

== ENCOUNTER → 2023-04-28 | Outpatient (CLI) | payer OTHER | END | disposition home or self-care (01) | LOC: LAB 11:28 → LAB SHORT 11:28 | DX: R73.09 Other abnormal glucose (principal); R73.01 Impaired fasting glucose | CPT/HCPCS: 83036 ==